=== PATIENT | female | born 1975 | race Caucasian/White ===

== ENCOUNTER → 2020-01-05 | Outpatient (CLI) | payer OTHER ==
--- NOTE | 2020-01-08 06:52 | XR ---
EXAMINATION TYPE: XR lumbosacral spine min 4V DATE OF EXAM: 01/05/2020 CLINICAL HISTORY: Spinal fusion surgery a few months earlier. TECHNIQUE: Frontal, lateral, and oblique images of the lumbar spine are obtained. COMPARISON: None FINDINGS: There are 5 lumbar type vertebral bodies identified. There are posterior interpedicular ro ds and screws transfixing L1-L3 levels bilaterally. There is poorly defined L2 vertebra with vertebro plasty changes, there is grade 2 retrolisthesis L2 on L3. Cement material extends to right and anteri or aspects of the mild to moderately compressed L2 vertebra. Moderate to severe disc space narrowing L1-L2 level with moderate anterior spurring. Slight grade 1 retrolisthesis L3 on L4. Mild disc space narrowing L5-S1 level. Slight dextroconvex scoliotic curvature positioning near the lumbosacral junct ion. Asymmetric narrowing and sclerosis right sacroiliac joint. Oblique images are within normal limi ts. Vertical density could reflect cement material into small draining vein. Cholecystectomy clips ar e noted. IMPRESSION: As above. Correlation with old outside x-rays would be beneficial.
== END | disposition home or self-care (01) ==
LOC: RAD 18:06
PROVIDERS: ATTEND Neurological Surgery
DX: Z09 Encounter for follow-up examination after completed treatment for conditions other than malignant neoplasm (principal); M48.061 Spinal stenosis, lumbar region without neurogenic claudication; M43.16 Spondylolisthesis, lumbar region; M41.87 Other forms of scoliosis, lumbosacral region; Z98.1 Arthrodesis status
CPT/HCPCS: 72110

== ENCOUNTER 2020-12-11 07:41 | Inpatient (IN) | payer OTHER ==
[2020-12-11] MEDS ORDERED: ACETAMINOPHEN TAB 500 MG TAB PO STA (07:57)
[2020-12-11] MEDS: SODIUM CHLORIDE 0.9% 500 ML 500 ML IV SCH ×3 (08:19→09:12)
[2020-12-11 08:23] LABS: Glucose,Whole Blood 343 mg/dL (75-99)
--- NOTE | 2020-12-11 08:27 | ED ---
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 [facility] obtained vitals on the patient this morning. They found that she was tachycardic and confused. EMS was called to the scene where they found the patient had 103 fever. She does have open wounds noted to her coccyx. It was recently cultured at the rehab facility. Patient presents and denies any complaints. She does have some difficulties with questions and states that she does feel "little bit foggy". She denies any headaches or visual changes. No chest pain or shortness of breath. No abdominal pain. Denies any bowel or bladder complaints. Patient does have notable hypoxia at 86%. She denies home oxygen use. Denies any new weakness in her body. No other alleviating, precipitating or modifying factors - Related Data Home Medications Medication Instructions Recorded Confirmed ALPRAZolam [Xanax] 0.25 mg PO DAILY PRN 12/11/20 12/11/20 Acetaminophen Tab [Tylenol] 650 mg PO QID PRN 12/11/20 12/11/20 Alpelisib [Piqray] 2 tab PO DAILY@1800 12/11/20 12/11/20 Anastrozole [Arimidex] 1 mg PO HS 12/11/20 12/11/20 Bisacodyl 10 mg PO DAILY PRN 12/11/20 12/11/20 Collagenase [Santyl] 1 applic TOPICAL DAILY 12/11/20 12/11/20 Enoxaparin [Lovenox] 40 mg SQ DAILY@0800 12/11/20 12/11/20 Gabapentin [Neurontin] 100 mg PO TID@0600,1400,2200 12/11/20 12/11/20 Glucerna Shake 120 ml PO TID@0800,1200,1700 12/11/20 12/11/20 HYDROmorphone [Dilaudid] 2 - 4 mg PO Q6H PRN 12/11/20 12/11/20 INSULIN ASPART (NovoLOG) [NovoLOG 20 unit SQ AC-TID 12/11/20 12/11/20 (formulary)] INSULIN ASPART (NovoLOG) [NovoLOG See Protocol SQ AC-TID 12/11/20 12/11/20 (formulary)] Insulin Glargine [Lantus] 50 unit SQ BID@0800,2100 12/11/20 12/11/20 Levothyroxine Sodium [Synthroid] 200 mcg PO DAILY@0600 12/11/20 12/11/20 Magnesium Hydroxide [Milk of 7,200 mg PO DAILY PRN 12/11/20 12/11/20 Magnesia Concentrate] Methylphenidate HCl [Ritalin] 10 mg PO BID@0800,1700 12/11/20 12/11/20 Morphine Sulfate ER [Ms Contin] 60 mg PO Q12HR 12/11/20 12/11/20 Na Phos,M-B/Na Phos,Di-Ba [Fleet 133 ml RECTAL DAILY PRN 12/11/20 12/11/20 Adult] Nystatin 100,000 Unit/ml Susp 500,000 units PO QID 12/11/20 12/11/20 [Mycostatin Oral Susp] OLANZapine [ZyPREXA] 5 mg PO HS 12/11/20 12/11/20 Oxybutynin Chloride [Ditropan] 5 mg PO BID@0800,1700 12/11/20 12/11/20 Pantoprazole Sodium [Protonix] 40 mg PO DAILY@0800 12/11/20 12/11/20 Polyethylene Glycol 3350 [Miralax] 17 gm PO BID 12/11/20 12/11/20 Potassium Chloride [Klor-Con 10] 20 meq PO BID@0800,1700 12/11/20 12/11/20 bisacodyL [Dulcolax] 10 mg RECTAL DAILY PRN 12/11/20 12/11/20 dexAMETHasone See Taper PO BID@0800,1700 12/11/20 12/11/20 metFORMIN HCL [Glucophage] 1,000 mg PO BID@0800,1700 12/11/20 12/11/20 ondansetron HCL [Zofran] 8 mg PO Q8H PRN 12/11/20 12/11/20 tiZANidine [Zanaflex] 2 mg PO TID PRN 12/11/20 12/11/20 Allergies Allergy/AdvReac Type Severity Reaction Status Date / Time acetaminophen [From [place]] Allergy Rash/Hives Verified 12/11/20 10:39 fish derived Allergy Rash/Hives Verified 12/11/20 10:39 hydrocodone [From [place]] Allergy Rash/Hives Verified 12/11/20 10:39 Penicillins Allergy Rash/Hives Verified 12/11/20 10:39 Review of Systems ROS Statement: Those systems with pertinent positive or pertinent negative responses have been documented in the HPI. ROS Other: All systems not noted in ROS Statement are negative. Past Medical History Past Medical History: Cancer, Diabetes Mellitus, Hyperlipidemia, Hypertension History of Any Multi-Drug Resistant Organisms: None Reported Past Surgical History: Unable to Obtain Past Psychological History: No Psychological Hx Reported Smoking Status: Never smoker Past Alcohol Use History: None Reported Past Drug Use History: None Reported General Exam Limitations: altered mental status General appearance: alert, in no apparent distress Head exam: Present: atraumatic, normocephalic, normal inspection Eye exam: Present: normal appearance, PERRL, EOMI. Absent: scleral icterus, conjunctival injection, periorbital swelling ENT exam: Present: normal exam, mucous membranes moist Neck exam: Present: normal inspection. Absent: tenderness, meningismus, lymphadenopathy Respiratory exam: Present: normal lung sounds bilaterally. Absent: respiratory distress, wheezes, rales, rhonchi, stridor Cardiovascular Exam: Present: normal rhythm, tachycardia, normal heart sounds. Absent: systolic murmur, diastolic murmur, rubs, gallop, clicks GI/Abdominal exam: Present: soft, normal bowel sounds. Absent: distended, tenderness, guarding, rebound, rigid Extremities exam: Present: normal inspection, full ROM, normal capillary refill. Absent: tenderness, pedal edema, joint swelling, calf tenderness Back exam: Present: other (Patient has a foul-smelling sacral wound measuring 5.0 x 2.0 cm - stage 3. Would located 6 cm from inferior end of incision) Neurological exam: Present: alert, oriented X3, CN II-XII intact Psychiatric exam: Present: normal affect, normal mood Skin exam: Present: warm, dry, intact, normal color. Absent: rash Course Vital Signs 12/11/20 12/11/20 12/11/20 07:41 08:00 08:30 Temperature 100.9 F H Pulse Rate 130 H 120 H 112 H Pulse Rate [ Pulse Oximetery ] Respiratory 16 Rate Blood Pressure 148/95 148/95 139/97 Blood Pressure [Left Arm] O2 Sat by Pulse 90 L 95 96 Oximetry 12/11/20 12/11/20 12/11/20 09:00 09:30 10:00 Temperature Pulse Rate 107 H 101 H 103 H Pulse Rate [ Pulse Oximetery ] Respiratory 16 16 Rate Blood Pressure 139/97 116/85 116/85 Blood Pressure [Left Arm] O2 Sat by Pulse 98 99 99 Oximetry 12/11/20 12/11/20 12/11/20 10:30 11:00 11:30 Temperature Pulse Rate 100 95 93 Pulse Rate [ Pulse Oximetery ] Respiratory 17 17 18 Rate Blood Pressure 122/91 122/91 109/78 Blood Pressure [Left Arm] O2 Sat by Pulse 97 98 96 Oximetry 12/11/20 12/11/20 12/11/20 12:00 12:30 13:00 Temperature Pulse Rate 92 89 93 Pulse Rate [ Pulse Oximetery ] Respiratory Rate Blood Pressure 109/78 112/79 112/79 Blood Pressure [Left Arm] O2 Sat by Pulse 98 98 98 Oximetry 12/11/20 12/11/20 12/11/20 13:30 14:00 14:30 Temperature Pulse Rate 83 86 90 Pulse Rate [ Pulse Oximetery ] Respiratory Rate Blood Pressure 117/83 117/83 115/80 Blood Pressure [Left Arm] O2 Sat by Pulse 98 99 99 Oximetry 12/11/20 12/11/20 12/11/20 14:43 15:00 15:30 Temperature 99.2 F Pulse Rate 86 Pulse Rate [ 100 Pulse Oximetery ] Respiratory 20 Rate Blood Pressure 115/80 114/76 Blood Pressure 111/74 [Left Arm] O2 Sat by Pulse 95 97 Oximetry 12/11/20 12/11/20 12/11/20 16:00 16:30 17:00 Temperature Pulse Rate 86 86 84 Pulse Rate [ Pulse Oximetery ] Respiratory Rate Blood Pressure 114/76 114/76 Blood Pressure [Left Arm] O2 Sat by Pulse 99 99 100 Oximetry 12/11/20 12/11/20 12/11/20 17:30 19:00 20:00 Temperature 98.0 F Pulse Rate 82 91 84 Pulse Rate [ Pulse Oximetery ] Respiratory 16 18 Rate Blood Pressure 114/76 114/76 113/75 Blood Pressure [Left Arm] O2 Sat by Pulse 99 100 100 Oximetry 12/11/20 21:07 Temperature Pulse Rate 82 Pulse Rate [ Pulse Oximetery ] Respiratory 18 Rate Blood Pressure 118/78 Blood Pressure [Left Arm] O2 Sat by Pulse 100 Oximetry - Reevaluation(s) Reevaluation #1: 12/11/20 10:46 Awaiting [facility] callback Reevaluation #2: Spoke with [facility] accepted patient as a transfer 12/11/20 11:00 Reevaluation #3: The Dr. Tran who states that he wants the patient admitted to the hospital. Informed him that Dr. Doty had refused admission. Called and spoke with Dr. Doty who agreed the patient stated her facility that she would be a palliative case. Informed patient of this. She is currently deciding if she wants to be admitted here, go to [facility] or even be transferred to [facility] 12/11/20 12:15 Reevaluation #4: Patient has changed her mind and would like to be admitted. Dr. Doty at bedside 12/11/20 12:47 Medical Decision Making - Medical Decision Making On arrival patient is placed into room 10. A thorough history and physical exam was performed. Patient is rolled and does have a foul-smelling sacral wound. Transfer paperwork demonstrates a culture result with gram negative bacilli and enterococcus. IV is established. Laboratory studies are conducted. Blood cultures were obtained. I did order a dose of cefepime. Patient was given her 30 cc/kg bolus of fluid. I reviewed the patient's laboratory studies. Sodium 129. Glucose is 351. Troponin 0.045. Covid not detected. Lactic acid is 1.7 and blood pressures are stable therefore no signs that meet severe sepsis. Chest x-ray demonstrates some diffuse osseous metastatic disease. Low lung volumes with patchy bilateral upper long and left greater than right basilar acute infiltrates and/or atelectasis. CT of the patient's brain demonstrates marked abnormal appearance involving the calvarium. Metastases in the differential. I did speak with the family and they're requesting admission to our facility. I called and spoke with Dr. Doty who is refusing admission. Reports of the patient should be transferred back to her facility where she had recent surgical intervention due to concern that patient may have osteomyelitis secondary to sacral wound. Spoke with the patient's surgeon at [facility] - Dr. Renner and also Dr. Russ who accepted transfer of the patient. We then called and spoke with EMS who stated that the patient would have an [id number] cost for transfer. This is discussed with the patient she does agree of the cost. I then spoke with Dr. Tran who states that the patient should be admitted to our facility with Dr. Hernandez consult as traveling back to [facility] would be an incredible burden on the family. I called Dr. Doty and discussed this with her who speaks with the patients family and all parties agree that the patient can remain at our facility. Patient does request to stay and therefore we called [facility] and transfer was canceled. Patient will receive antibiotics and pain control. Patient is awaiting a bed on the floor - Lab Data Result diagrams: 12/12/20 09:59 12/13/20 07:52 Lab Results 12/11/20 12/11/20 12/11/20 Range/Units 07:54 08:15 08:15 WBC 4.1 (3.8-10.6) k/uL RBC 3.07 L (3.80-5.40) m/uL Hgb 9.9 L (11.4-16.0) gm/dL Hct 30.5 L (34.0-46.0) % MCV 99.4 (80.0-100.0) fL MCH 32.4 (25.0-35.0) pg MCHC 32.6 (31.0-37.0) g/dL RDW 25.0 H (11.5-15.5) % Plt Count 228 (150-450) k/uL MPV 6.7 Neutrophils % (Manual) 77 % Band Neuts % (Manual) 4 % Lymphocytes % (Manual) 10 % Monocytes % (Manual) 6 % Metamyelocytes % 2 % Myelocytes % 2 % Neutrophils # (Manual) 3.30 (1.3-7.7) k/uL Lymphocytes # (Manual) 0.41 L (1.0-4.8) k/uL Monocytes # (Manual) 0.25 (0-1.0) k/uL Metamyelocytes # (Man) 0.08 H (0) k/uL Myelocytes # (Manual) 0.08 H (0) k/uL Nucleated RBCs 11 H (0-0) /100 WBC Manual Slide Review Performed Polychromasia Present Hypochromasia Slight Poikilocytosis (manual Present Anisocytosis Marked Macrocytosis Marked A PT 10.9 (9.0-12.0) sec INR 1.0 (<1.2) APTT 22.1 (22.0-30.0) sec Sodium (137-145) mmol/L Potassium (3.5-5.1) mmol/L Chloride (98-107) mmol/L Carbon Dioxide (22-30) mmol/L Anion Gap mmol/L BUN (7-17) mg/dL Creatinine (0.52-1.04) mg/dL Est GFR (CKD-EPI)AfAm (>60 ml/min/1.73 sqM) Est GFR (CKD-EPI)NonAf (>60 ml/min/1.73 sqM) Glucose (74-99) mg/dL POC Glucose (mg/dL) (75-99) mg/dL POC Glu Showroom Manager ID Plasma Lactic Acid Stephen (0.7-2.0) mmol/L Calcium (8.4-10.2) mg/dL Total Bilirubin (0.2-1.3) mg/dL AST (14-36) U/L ALT (4-34) U/L Alkaline Phosphatase (38-126) U/L Troponin I 0.045 H* (0.000-0.034) ng/mL Total Protein (6.3-8.2) g/dL Albumin (3.5-5.0) g/dL Cortisol ug/dL Coronavirus (PCR) (Not Detectd) 12/11/20 12/11/20 12/11/20 Range/Units 08:15 08:15 08:20 WBC (3.8-10.6) k/uL RBC (3.80-5.40) m/uL Hgb (11.4-16.0) gm/dL Hct (34.0-46.0) % MCV (80.0-100.0) fL MCH (25.0-35.0) pg MCHC (31.0-37.0) g/dL RDW (11.5-15.5) % Plt Count (150-450) k/uL MPV Neutrophils % (Manual) % Band Neuts % (Manual) % Lymphocytes % (Manual) % Monocytes % (Manual) % Metamyelocytes % % Myelocytes % % Neutrophils # (Manual) (1.3-7.7) k/uL Lymphocytes # (Manual) (1.0-4.8) k/uL Monocytes # (Manual) (0-1.0) k/uL Metamyelocytes # (Man) (0) k/uL Myelocytes # (Manual) (0) k/uL Nucleated RBCs (0-0) /100 WBC Manual Slide Review Polychromasia Hypochromasia Poikilocytosis (manual Anisocytosis Macrocytosis PT (9.0-12.0) sec INR (<1.2) APTT (22.0-30.0) sec Sodium 129 L (137-145) mmol/L Potassium 5.0 (3.5-5.1) mmol/L Chloride 92 L (98-107) mmol/L Carbon Dioxide 30 (22-30) mmol/L Anion Gap 7 mmol/L BUN 26 H (7-17) mg/dL Creatinine 0.46 L (0.52-1.04) mg/dL Est GFR (CKD-EPI)AfAm >90 (>60 ml/min/1.73 sqM) Est GFR (CKD-EPI)NonAf >90 (>60 ml/min/1.73 sqM) Glucose 351 H (74-99) mg/dL POC Glucose (mg/dL) 343 H (75-99) mg/dL POC Glu Showroom Manager [facility] Plasma Lactic Acid Stephen 1.7 (0.7-2.0) mmol/L Calcium 9.0 (8.4-10.2) mg/dL Total Bilirubin 0.6 (0.2-1.3) mg/dL AST 27 (14-36) U/L ALT 28 (4-34) U/L Alkaline Phosphatase 127 H (38-126) U/L Troponin I (0.000-0.034) ng/mL Total Protein 5.9 L (6.3-8.2) g/dL Albumin 3.5 (3.5-5.0) g/dL Cortisol 24 ug/dL Coronavirus (PCR) (Not Detectd) 12/11/20 Range/Units 08:24 WBC (3.8-10.6) k/uL RBC (3.80-5.40) m/uL Hgb (11.4-16.0) gm/dL Hct (34.0-46.0) % MCV (80.0-100.0) fL MCH (25.0-35.0) pg MCHC (31.0-37.0) g/dL RDW (11.5-15.5) % Plt Count (150-450) k/uL MPV Neutrophils % (Manual) % Band Neuts % (Manual) % Lymphocytes % (Manual) % Monocytes % (Manual) % Metamyelocytes % % Myelocytes % % Neutrophils # (Manual) (1.3-7.7) k/uL Lymphocytes # (Manual) (1.0-4.8) k/uL Monocytes # (Manual) (0-1.0) k/uL Metamyelocytes # (Man) (0) k/uL Myelocytes # (Manual) (0) k/uL Nucleated RBCs (0-0) /100 WBC Manual Slide Review Polychromasia Hypochromasia Poikilocytosis (manual Anisocytosis Macrocytosis PT (9.0-12.0) sec INR (<1.2) APTT (22.0-30.0) sec Sodium (137-145) mmol/L Potassium (3.5-5.1) mmol/L Chloride (98-107) mmol/L Carbon Dioxide (22-30) mmol/L Anion Gap mmol/L BUN (7-17) mg/dL Creatinine (0.52-1.04) mg/dL Est GFR (CKD-EPI)AfAm (>60 ml/min/1.73 sqM) Est GFR (CKD-EPI)NonAf (>60 ml/min/1.73 sqM) Glucose (74-99) mg/dL POC Glucose (mg/dL) (75-99) mg/dL POC Glu Showroom Manager ID Plasma Lactic Acid Stephen (0.7-2.0) mmol/L Calcium (8.4-10.2) mg/dL Total Bilirubin (0.2-1.3) mg/dL AST (14-36) U/L ALT (4-34) U/L Alkaline Phosphatase (38-126) U/L Troponin I (0.000-0.034) ng/mL Total Protein (6.3-8.2) g/dL Albumin (3.5-5.0) g/dL Cortisol ug/dL Coronavirus (PCR) Not Detected (Not Detectd) - EKG Data EKG Comments: EKG demonstrates a sinus tachycardia with a ventricular rate of 121. RI interval 128. QRS 84. QTC 434. No acute ST segment elevations or depressions concerning for ischemic changes Disposition Clinical Impression: Sacral wound, Sepsis, Pyrexia, Pressure ulcer of sacral region, stage 4, Metastatic breast cancer Disposition: ADMITTED IP TO THIS HOSP Condition: Serious Is patient prescribed a controlled substance at d/c from ED?: No Decision to Admit Reason: Admit from EC Decision Date: 12/11/20 Decision Time: 12:48
--- NOTE | 2020-12-11 08:56 | CT ---
EXAMINATION TYPE: CT brain wo con DATE OF EXAM: 12/11/2020 COMPARISON: None HISTORY: altered mental status, fever CT DLP: 1092.4 mGycm. Automated Exposure Control for Dose Reduction was Utilized. TECHNIQUE: CT scan of the head is performed without contrast. FINDINGS: Exam limited by motion artifact with severe limitation of the posterior fossa. There is an area of abnormal low attenuation the left frontal white matter. Could not exclude a space space-occup antoinette mass or area of ischemic change. Recommend MRI. Normal appearance involving the calvarium where there is marked demineralization areas involving bilateral calvarium. Findings suspicious for metasta ses. Assessment for hemorrhage is limited due to artifact. Low attenuation involving the cerebellar hemisp here and the right somewhat asymmetric but is an area of extreme artifact. MRI could assess for possi ble edema and underlying metastatic lesion. IMPRESSION: 1. Marked abnormal appearance involving the calvarium. Consider neoplastic process, metastasis in the differential diagnosis. Recommend MRI. Areas of low attenuation involving the left frontal white mat ter could represent either recent ischemia or vasogenic edema. MRI with contrast recommended. Results called to ER physician. Next line 2. Limited assessment of posterior fossa and for hemorrhage due to artifact.
[2020-12-11 08:59] LABS: ALT 28 U/L (4-34); AST 27 U/L (14-36); African American GFR (CKD) >90 (>60 ml/min/1.73 sqM); Albumin 3.5 g/dL (3.5-5.0); Alkaline Phosphatase 127 U/L (38-126); Anion Gap 7 mmol/L; Blood Urea Nitrogen 26 mg/dL (7-17); Carbon Dioxide 30 mmol/L (22-30); Chloride 92 mmol/L (98-107); Glucose 351 mg/dL (74-99); Non-African American GFR(CKD) >90 (>60 ml/min/1.73 sqM); Sodium 129 mmol/L (137-145); Total Bilirubin 0.6 mg/dL (0.2-1.3); Total Protein 5.9 g/dL (6.3-8.2)
--- NOTE | 2020-12-11 09:01 | XR ---
EXAMINATION TYPE: XR chest 2V DATE OF EXAM: 12/11/2020 COMPARISON: NONE HISTORY: Altered mental status and weakness. Fever. TECHNIQUE: Frontal and lateral views of the chest are obtained. FINDINGS: There is right internal jugular Mediport catheter terminating in SVC. Low lung volumes and chronic parenchymal changes are present. Focal left basilar opacity. Focal linear opacity right lung base favors trapped pleural fluid. Or patchy opacity inferior to this noted. Patchy upper lung opacit ies bilaterally. No pneumothorax seen bilaterally. No layering inferior fusion on lateral view. [place] us structures abnormal with multifocal lytic and sclerotic appearance. Postsurgical change to the tho racolumbar spine is partially imaged. Cholecystectomy clips. Cardiac silhouette size within normal li mits. IMPRESSION: Diffuse osseous metastatic disease. Low lung volumes with patchy bilateral upper lung an d left greater than right bibasilar acute infiltrates and/or atelectasis.
[2020-12-11 09:02] LABS: Partial Thromboplastin Time 22.1 sec (22.0-30.0); Prothrombin Time 10.9 sec (9.0-12.0)
[2020-12-11 09:09] LABS: Anisocytosis Marked; HCT 30.5 % (34.0-46.0); HGB 9.9 gm/dL (11.4-16.0); Hypochromasia Slight; MCH 32.4 pg (25.0-35.0); MCHC 32.6 g/dL (31.0-37.0); MCV 99.4 fL (80.0-100.0); Macrocytosis Marked; Mean Platelet Volume 6.7; Platelet Count 228 k/uL (150-450); RBC 3.07 m/uL (3.80-5.40)
[2020-12-11 09:35] LABS: Band Neutrophils % 4 %; Lymphocytes # (M) 0.41 k/uL (1.0-4.8); Metamyelocytes # (M) 0.08 k/uL (0); Metamyelocytes % 2 %; Monocytes # (M) 0.25 k/uL (0-1.0); Myelocytes # (M) 0.08 k/uL (0); Myelocytes % 2 %; Neutrophils % (M) 77 %; Nucleated Red Blood Cells 11 /100 WBC (0-0); Total Cells Counted 200; WBC 4.1 k/uL (3.8-10.6)
[2020-12-11] MEDS ORDERED: cefTRIAXone IN SWFI 1,000 MG/10 ML SYRINGE IVP STA (09:35)
[2020-12-11 09:37] LABS: Poikilocytosis (M) Present; Polychromasia Present
[2020-12-11] MEDS ORDERED: CEFEPIME 1 GM in SODIUM CHLORIDE 0.9% 50 ML IVPB STA (10:12)
[2020-12-11] MEDS ORDERED: HYDROmorphone 1 MG/ML 1 ML SYRINGE IVP STA (10:27)
[2020-12-11] MEDS: SODIUM CHLORIDE 0.9% 1,000 ML IV SCH ×2 (11:32→23:59)
[2020-12-11] MEDS ORDERED: IBUPROFEN 400 MG TAB PO PRN (12:48)
[2020-12-11] MEDS ORDERED: ACETAMINOPHEN TAB 325 MG TAB PO PRN (12:48)
[2020-12-11] MEDS ORDERED: NALOXONE 0.4 MG/ML 1 ML VIAL IV PRN (12:48)
[2020-12-11] MEDS ORDERED: bisacodyL 5 MG TABLET.DR PO PRN (13:56)
[2020-12-11] MEDS ORDERED: tiZANidine 4 MG TAB PO PRN (13:56)
[2020-12-11] MEDS ORDERED: bisacodyL 10 MG SUPP RECTAL PRN (13:56)
[2020-12-11] MEDS ORDERED: ALPRAZolam 0.25 MG TAB PO PRN (13:56)
[2020-12-11] MEDS: GABAPENTIN 100 MG CAP PO SCH ×2 (14:53→23:58)
[2020-12-11] MEDS: HYDROmorphone 2 MG TAB PO PRN (15:14)
[2020-12-11] MEDS: ONDANSETRON 4 MG TAB PO SCH (15:15)
--- NOTE | 2020-12-11 15:15 | P.GSCN ---
History of Present Illness Consult date: 12/11/20 Reason for Consult: Sacral decubitus ulcer History of present illness: The patient's a 45-year-old female who was brought to the ER from [facility] due to fever and confusion. She has a complicated history. She has a diagnosis of metastatic breast cancer. She also recently fell and had a ORIF of the right shoulder and femur. She also recently had some sort of spine surgery on the upper back and the incision has opened up and begun draining. she has had a small decubitus ulcer since her initial surgeries in October. This is been getting bigger. She has pain there she's never had surgery on the decubitus in the past Review of Systems All systems: negative Past Medical History Past Medical History: Cancer, Diabetes Mellitus, Hyperlipidemia, Hypertension History of Any Multi-Drug Resistant Organisms: None Reported Past Surgical History: Unable to Obtain Past Psychological History: No Psychological Hx Reported Smoking Status: Never smoker Past Alcohol Use History: None Reported Past Drug Use History: None Reported Medications and Allergies Home Medications Medication Instructions Recorded Confirmed Type ALPRAZolam [Xanax] 0.25 mg PO DAILY PRN 12/11/20 12/11/20 History Acetaminophen Tab [Tylenol] 650 mg PO QID PRN 12/11/20 12/11/20 History Alpelisib [Piqray] 2 tab PO DAILY 12/11/20 12/11/20 History Anastrozole [Arimidex] 1 mg PO DAILY 12/11/20 12/11/20 History Bisacodyl 10 mg PO DAILY PRN 12/11/20 12/11/20 History Collagenase [Santyl] 1 applic TOPICAL DAILY 12/11/20 12/11/20 History Dexamethasone [Decadron] 2 - 4 mg PO DIRECTED 12/11/20 12/11/20 History Enoxaparin [Lovenox] 40 mg SQ DAILY 12/11/20 12/11/20 History Gabapentin [Neurontin] 100 mg PO TID 12/11/20 12/11/20 History HYDROmorphone [Dilaudid] 2 - 4 mg PO Q6H PRN 12/11/20 12/11/20 History INSULIN ASPART (NovoLOG) [NovoLOG 20 unit SQ AC-TID 12/11/20 12/11/20 History (formulary)] INSULIN ASPART (NovoLOG) [NovoLOG See Protocol SQ AC-TID 12/11/20 12/11/20 History (formulary)] Insulin Glargine [Lantus] 50 unit SQ BID 12/11/20 12/11/20 History Levothyroxine Sodium [Synthroid] 200 mcg PO DAILY 12/11/20 12/11/20 History Magnesium Hydroxide [Milk of 7,200 mg PO DAILY PRN 12/11/20 12/11/20 History Magnesia Concentrate] Methylphenidate HCl [Ritalin] 10 mg PO BID 12/11/20 12/11/20 History Morphine Sulfate ER [Ms Contin] 60 mg PO Q12HR 12/11/20 12/11/20 History Na Phos,M-B/Na Phos,Di-Ba [Fleet 133 ml RECTAL DAILY PRN 12/11/20 12/11/20 History Adult] Nystatin 100,000 Unit/ml Susp 500,000 units PO QID 12/11/20 12/11/20 History [Mycostatin Oral Susp] OLANZapine [ZyPREXA] 5 mg PO HS 12/11/20 12/11/20 History Oxybutynin Chloride [Ditropan] 5 mg PO BID 12/11/20 12/11/20 History Pantoprazole Sodium [Protonix] 40 mg PO DAILY 12/11/20 12/11/20 History Polyethylene Glycol 3350 [Miralax] 17 gm PO BID 12/11/20 12/11/20 History Potassium Chloride [Klor-Con 10] 20 meq PO BID 12/11/20 12/11/20 History bisacodyL [Dulcolax] 10 mg RECTAL DAILY PRN 12/11/20 12/11/20 History metFORMIN HCL [Glucophage] 1,000 mg PO BID 12/11/20 12/11/20 History ondansetron HCL [Zofran] 8 mg PO Q8HR 12/11/20 12/11/20 History tiZANidine [Zanaflex] 2 mg PO Q8HR PRN 12/11/20 12/11/20 History Allergies Allergy/AdvReac Type Severity Reaction Status Date / Time acetaminophen [From [place]] Allergy Rash/Hives Verified 12/11/20 10:39 fish derived Allergy Rash/Hives Verified 12/11/20 10:39 hydrocodone [From [place]] Allergy Rash/Hives Verified 12/11/20 10:39 Penicillins Allergy Rash/Hives Verified 12/11/20 10:39 Surgical - Exam Osteopathic Statement: *. No significant issues noted on an osteopathic structural exam other than those noted in the History and Physical/Consult. Vital Signs Temp Pulse Resp BP Pulse Ox 100.9 F H 130 H 16 148/95 90 L 12/11/20 07:41 12/11/20 07:41 12/11/20 07:41 12/11/20 07:41 12/11/20 07:41 - General no distress - Integumentary 5 cm area of full thickness necrosis of the skin and subcutaneous tissue over the sacrum. In palpating the area does appear to involve the deeper subcutaneous tissues. Results - Labs 12/11/20 08:15 12/11/20 08:15 Abnormal Lab Results - Last 24 Hours (Table) 12/11/20 12/11/20 12/11/20 Range/Units 07:54 08:15 08:15 RBC 3.07 L (3.80-5.40) m/uL Hgb 9.9 L (11.4-16.0) gm/dL Hct 30.5 L (34.0-46.0) % RDW 25.0 H (11.5-15.5) % Lymphocytes # (Manual) 0.41 L (1.0-4.8) k/uL Metamyelocytes # (Man) 0.08 H (0) k/uL Myelocytes # (Manual) 0.08 H (0) k/uL Nucleated RBCs 11 H (0-0) /100 WBC Macrocytosis Marked A Sodium 129 L (137-145) mmol/L Chloride 92 L (98-107) mmol/L BUN 26 H (7-17) mg/dL Creatinine 0.46 L (0.52-1.04) mg/dL Glucose 351 H (74-99) mg/dL POC Glucose (mg/dL) (75-99) mg/dL Alkaline Phosphatase 127 H (38-126) U/L Troponin I 0.045 H* (0.000-0.034) ng/mL Total Protein 5.9 L (6.3-8.2) g/dL 12/11/20 Range/Units 08:20 RBC (3.80-5.40) m/uL Hgb (11.4-16.0) gm/dL Hct (34.0-46.0) % RDW (11.5-15.5) % Lymphocytes # (Manual) (1.0-4.8) k/uL Metamyelocytes # (Man) (0) k/uL Myelocytes # (Manual) (0) k/uL Nucleated RBCs (0-0) /100 WBC Macrocytosis Sodium (137-145) mmol/L Chloride (98-107) mmol/L BUN (7-17) mg/dL Creatinine (0.52-1.04) mg/dL Glucose (74-99) mg/dL POC Glucose (mg/dL) 343 H (75-99) mg/dL Alkaline Phosphatase (38-126) U/L Troponin I (0.000-0.034) ng/mL Total Protein (6.3-8.2) g/dL Diabetes panel 12/11/20 Range/Units 08:15 Sodium 129 L (137-145) mmol/L Potassium 5.0 (3.5-5.1) mmol/L Chloride 92 L (98-107) mmol/L Carbon Dioxide 30 (22-30) mmol/L BUN 26 H (7-17) mg/dL Creatinine 0.46 L (0.52-1.04) mg/dL Glucose 351 H (74-99) mg/dL Calcium 9.0 (8.4-10.2) mg/dL AST 27 (14-36) U/L ALT 28 (4-34) U/L Alkaline Phosphatase 127 H (38-126) U/L Total Protein 5.9 L (6.3-8.2) g/dL Albumin 3.5 (3.5-5.0) g/dL Calcium panel 12/11/20 Range/Units 08:15 Calcium 9.0 (8.4-10.2) mg/dL Albumin 3.5 (3.5-5.0) g/dL Pituitary panel 12/11/20 Range/Units 08:15 Sodium 129 L (137-145) mmol/L Potassium 5.0 (3.5-5.1) mmol/L Chloride 92 L (98-107) mmol/L Carbon Dioxide 30 (22-30) mmol/L BUN 26 H (7-17) mg/dL Creatinine 0.46 L (0.52-1.04) mg/dL Glucose 351 H (74-99) mg/dL Calcium 9.0 (8.4-10.2) mg/dL Adrenal panel 12/11/20 Range/Units 08:15 Sodium 129 L (137-145) mmol/L Potassium 5.0 (3.5-5.1) mmol/L Chloride 92 L (98-107) mmol/L Carbon Dioxide 30 (22-30) mmol/L BUN 26 H (7-17) mg/dL Creatinine 0.46 L (0.52-1.04) mg/dL Glucose 351 H (74-99) mg/dL Calcium 9.0 (8.4-10.2) mg/dL Total Bilirubin 0.6 (0.2-1.3) mg/dL AST 27 (14-36) U/L ALT 28 (4-34) U/L Alkaline Phosphatase 127 H (38-126) U/L Total Protein 5.9 L (6.3-8.2) g/dL Albumin 3.5 (3.5-5.0) g/dL Assessment and Plan Assessment: Sacral decubitus ulcer Metastatic breast cancer Drainage from incision in the mid thorax from previous spine surgery Plan: I spoke with the patient and her father. I recommend excisional debridement. We will try to get this added on for tomorrow afternoon. Dr. Hernandez is consulted to evaluate the thoracic drainage. If that needs anything from a spine surgery perspective, this could potentially be done at the same time. The procedure, risks complications and usual postoperative course was discussed with her and her father. Unfortunately due to the chemo she's been receiving and may receive in the future, wound healing is typically very prolonged. We'll have her see wound care after debridement
[2020-12-11] MEDS ORDERED: VANCOMYCIN IV PER PHARMACY 1 EACH MISC MISCELLANE PRN (15:36)
[2020-12-11] MEDS ORDERED: VANCOMYCIN 1,250 MG in SODIUM CHLORIDE 0.9% 250 ML IVPB STA (15:36)
--- NOTE | 2020-12-11 15:39 | P.HPIM ---
History of Present Illness H&P Date: 12/11/20 Chief Complaint: Disorientation, fever, large decubitus ulcer This is a 45-year-old pleasant lady, resides at [facility] under the care of Dr. Tran, known history of breast cancer with metastatic, diagnosed in 2014, upon diagnosis sure that metastatic lesions to the bone. She did not require mastectomy at that time, however she is on chemotherapy. Oncology would be at [facility] She had decubitus ulcer diagnosed 3 weeks ago, after decompression surgery involving lumbar spine, done at [facility] in [place], 3 weeks ago. She went to [facility], for which she is therefore rehabilitation. Patient requires a Marko lift, cannot ambulate and cannot move the leg spontaneously. She was noted to have fever this morning, and when she woke up she was disoriented, she was subsequently transferred to [facility]. She has a decubitus ulcer with foul-smelling large ulceration, this is being treated with 3+, no oral antibiotic, it's worse for the past 2 weeks, now with us foul-smelling odor, measuring 5 cm x 2 cm stage III. In the emergency room she was given information of the culture that was done December 08, growing pseudomonas aeruginosa, and Enterococcus faecalis, she was given cepefijme, pseudomonas is pansensitive, enterococcus is resistant to erythromycin, we'll going to start on levofloxacin IV and IV flagyn empiric, no drug ALLERGIES noted with this antibiotic. Patient has penicillin ALLERGY, with difficulty breathing and throat swelling consult with Dr. Harris, Dr. Menjivar for debridement of the sacral wound, and Dr. Hernandez for possible discitis, osteomyelitis. Patient has fever, delirium, with encephalopathy like picture, however this is transient, we've discussed this with emergency room physician, before her acceptance here, that I would prefer her to be sent to a tertiary facility that has done her spine decompression, as there is drainage from the wound in the surgical spine area however the family declined this option, as it is too far in [place]. Also at her primary care physician [facility], Dr. Tran requested that the patient stay locally, as this is uncomfortable for her, patient did not want any palliative treatments yet, however she is DO NOT RESUSCITATE, no CPR no ventilation She is taking morphine 60 mg twice a day, along with Dilaudid 2 mg every 4 hours, at the alf prior to admission. She is on Lantus for diabetes NovoLog premix,, gabapentin, Zyprexa, she is on piqray and Arimidex for metastatic breast cancer dexamethasone 2-4 mg as directed Review of Systems Constitutional: Reports as per HPI, Reports chills, Reports fatigue, Reports fever, Reports lethargy Ears, nose, mouth and throat: Reports as per HPI, Denies hoarseness, Denies nasal discharge, Denies neck lump, Denies odynophagia, Denies vertigo Cardiovascular: Reports as per HPI, Reports decreased exercise tolerance, Reports dyspnea on exertion, Denies shortness of breath Respiratory: Reports as per HPI, Denies cough with sputum, Denies pain on inspiration, Denies respiratory infections, Denies sleep apnea Gastrointestinal: Reports as per HPI Genitourinary: Reports as per HPI Menstruation: Reports as per HPI Musculoskeletal: Reports as per HPI, Reports myalgias, Denies gait dysfunction, Denies limitation of motion Integumentary: Reports as per HPI, Reports color changes, Reports wounds (Pressure ulcer acute coccyx sacrum) Neurological: Reports as per HPI, Reports balance difficulties, Reports gait dysfunction, Reports lack of coordination Psychiatric: Reports as per HPI, Reports disorientation, Reports insomnia Endocrine: Reports as per HPI, Reports weight change, Denies nocturia, Denies palpitations Hematologic/Lymphatic: Reports as per HPI, Reports easy bleeding Allergic/Immunologic: Reports persistent infections Past Medical History Past Medical History: Cancer, Diabetes Mellitus, Hyperlipidemia, Hypertension History of Any Multi-Drug Resistant Organisms: None Reported Past Surgical History: Unable to Obtain Past Psychological History: No Psychological Hx Reported Smoking Status: Never smoker Past Alcohol Use History: None Reported Past Drug Use History: None Reported Medications and Allergies Home Medications Medication Instructions Recorded Confirmed Type ALPRAZolam [Xanax] 0.25 mg PO DAILY PRN 12/11/20 12/11/20 History Acetaminophen Tab [Tylenol] 650 mg PO QID PRN 12/11/20 12/11/20 History Alpelisib [Piqray] 2 tab PO DAILY@1800 12/11/20 12/11/20 History Anastrozole [Arimidex] 1 mg PO HS 12/11/20 12/11/20 History Bisacodyl 10 mg PO DAILY PRN 12/11/20 12/11/20 History Collagenase [Santyl] 1 applic TOPICAL DAILY 12/11/20 12/11/20 History Enoxaparin [Lovenox] 40 mg SQ DAILY@0800 12/11/20 12/11/20 History Gabapentin [Neurontin] 100 mg PO TID@0600,1400,2200 12/11/20 12/11/20 History Glucerna Shake 120 ml PO TID@0800,1200,1700 12/11/20 12/11/20 History HYDROmorphone [Dilaudid] 2 - 4 mg PO Q6H PRN 12/11/20 12/11/20 History INSULIN ASPART (NovoLOG) [NovoLOG 20 unit SQ AC-TID 12/11/20 12/11/20 History (formulary)] INSULIN ASPART (NovoLOG) [NovoLOG See Protocol SQ AC-TID 12/11/20 12/11/20 History (formulary)] Insulin Glargine [Lantus] 50 unit SQ BID@0800,2100 12/11/20 12/11/20 History Levothyroxine Sodium [Synthroid] 200 mcg PO DAILY@0600 12/11/20 12/11/20 History Magnesium Hydroxide [Milk of 7,200 mg PO DAILY PRN 12/11/20 12/11/20 History Magnesia Concentrate] Methylphenidate HCl [Ritalin] 10 mg PO BID@0800,1700 12/11/20 12/11/20 History Morphine Sulfate ER [Ms Contin] 60 mg PO Q12HR 12/11/20 12/11/20 History Na Phos,M-B/Na Phos,Di-Ba [Fleet 133 ml RECTAL DAILY PRN 12/11/20 12/11/20 History Adult] Nystatin 100,000 Unit/ml Susp 500,000 units PO QID 12/11/20 12/11/20 History [Mycostatin Oral Susp] OLANZapine [ZyPREXA] 5 mg PO HS 12/11/20 12/11/20 History Oxybutynin Chloride [Ditropan] 5 mg PO BID@0800,1700 12/11/20 12/11/20 History Pantoprazole Sodium [Protonix] 40 mg PO DAILY@0800 12/11/20 12/11/20 History Polyethylene Glycol 3350 [Miralax] 17 gm PO BID 12/11/20 12/11/20 History Potassium Chloride [Klor-Con 10] 20 meq PO BID@0800,1700 12/11/20 12/11/20 History bisacodyL [Dulcolax] 10 mg RECTAL DAILY PRN 12/11/20 12/11/20 History dexAMETHasone [Dexamethasone] See Taper PO BID@0800,1700 12/11/20 12/11/20 History metFORMIN HCL [Glucophage] 1,000 mg PO BID@0800,1700 12/11/20 12/11/20 History ondansetron HCL [Zofran] 8 mg PO Q8H PRN 12/11/20 12/11/20 History tiZANidine [Zanaflex] 2 mg PO TID PRN 12/11/20 12/11/20 History Allergies Allergy/AdvReac Type Severity Reaction Status Date / Time acetaminophen [From [place]] Allergy Rash/Hives Verified 12/11/20 10:39 fish derived Allergy Rash/Hives Verified 12/11/20 10:39 hydrocodone [From [place]] Allergy Rash/Hives Verified 12/11/20 10:39 Penicillins Allergy Rash/Hives Verified 12/11/20 10:39 Physical Exam Vitals: Vital Signs Temp Pulse Resp BP Pulse Ox 12/11/20 11:30 93 18 109/78 96 12/11/20 11:00 95 17 122/91 98 12/11/20 10:30 100 17 122/91 97 12/11/20 10:00 103 H 16 116/85 99 12/11/20 09:30 101 H 16 116/85 99 12/11/20 09:00 107 H 139/97 98 12/11/20 08:30 112 H 139/97 96 12/11/20 08:00 120 H 148/95 95 12/11/20 07:41 100.9 F H 130 H 16 148/95 90 L Intake and Output 12/11/20 12/11/20 12/11/20 06:59 14:59 22:59 Other: Weight 63.503 kg - Constitutional General appearance: cooperative, no acute distress - EENT Eyes: anicteric sclerae, PERRLA, dentition normal ENT: NA/AT, normal oropharynx - Neck Neck: normal ROM - Respiratory Respiratory: bilateral: CTA, negative: diminished, dullness - Cardiovascular Rhythm: regular Heart sounds: normal: S1, S2 Abnormal Heart Sounds: no systolic murmur, no diastolic murmur, no rub, no S3 Gallop, no S4 Gallop, no click, no other - Gastrointestinal General gastrointestinal: normal bowel sounds - Integumentary Integumentary: decreased turgor, normal - Musculoskeletal Patient unable to move lower extremities, weak upper extremity bilateral no significant motor deficits in upper extremities - Psychiatric Psychiatric: A&O x's 3, appropriate affect, intact judgment & insight Results CBC & Chem 7: 12/12/20 09:59 12/12/20 09:59 Labs: Abnormal Lab Results - Last 24 Hours (Table) 12/11/20 12/11/20 12/11/20 Range/Units 07:54 08:15 08:15 RBC 3.07 L (3.80-5.40) m/uL Hgb 9.9 L (11.4-16.0) gm/dL Hct 30.5 L (34.0-46.0) % RDW 25.0 H (11.5-15.5) % Lymphocytes # (Manual) 0.41 L (1.0-4.8) k/uL Metamyelocytes # (Man) 0.08 H (0) k/uL Myelocytes # (Manual) 0.08 H (0) k/uL Nucleated RBCs 11 H (0-0) /100 WBC Macrocytosis Marked A Sodium 129 L (137-145) mmol/L Chloride 92 L (98-107) mmol/L BUN 26 H (7-17) mg/dL Creatinine 0.46 L (0.52-1.04) mg/dL Glucose 351 H (74-99) mg/dL POC Glucose (mg/dL) (75-99) mg/dL Alkaline Phosphatase 127 H (38-126) U/L Troponin I 0.045 H* (0.000-0.034) ng/mL Total Protein 5.9 L (6.3-8.2) g/dL 12/11/20 Range/Units 08:20 RBC (3.80-5.40) m/uL Hgb (11.4-16.0) gm/dL Hct (34.0-46.0) % RDW (11.5-15.5) % Lymphocytes # (Manual) (1.0-4.8) k/uL Metamyelocytes # (Man) (0) k/uL Myelocytes # (Manual) (0) k/uL Nucleated RBCs (0-0) /100 WBC Macrocytosis Sodium (137-145) mmol/L Chloride (98-107) mmol/L BUN (7-17) mg/dL Creatinine (0.52-1.04) mg/dL Glucose (74-99) mg/dL POC Glucose (mg/dL) 343 H (75-99) mg/dL Alkaline Phosphatase (38-126) U/L Troponin I (0.000-0.034) ng/mL Total Protein (6.3-8.2) g/dL Laboratory Results WBC 4.1 k/uL (3.8-10.6) 12/11/20 08:15 RBC 3.07 m/uL (3.80-5.40) L 12/11/20 08:15 Hgb 9.9 gm/dL (11.4-16.0) L 12/11/20 08:15 Hct 30.5 % (34.0-46.0) L 12/11/20 08:15 MCV 99.4 fL (80.0-100.0) 12/11/20 08:15 MCH 32.4 pg (25.0-35.0) 12/11/20 08:15 MCHC 32.6 g/dL (31.0-37.0) 12/11/20 08:15 RDW 25.0 % (11.5-15.5) H 12/11/20 08:15 Plt Count 228 k/uL (150-450) 12/11/20 08:15 MPV 6.7 12/11/20 08:15 Neutrophils % (Manual) 77 % 12/11/20 08:15 Band Neuts % (Manual) 4 % 12/11/20 08:15 Lymphocytes % (Manual) 10 % 12/11/20 08:15 Monocytes % (Manual) 6 % 12/11/20 08:15 Metamyelocytes % 2 % 12/11/20 08:15 Myelocytes % 2 % 12/11/20 08:15 Neutrophils # (Manual) 3.30 k/uL (1.3-7.7) 12/11/20 08:15 Lymphocytes # (Manual) 0.41 k/uL (1.0-4.8) L 12/11/20 08:15 Monocytes # (Manual) 0.25 k/uL (0-1.0) 12/11/20 08:15 Metamyelocytes # (Man) 0.08 k/uL (0) H 12/11/20 08:15 Myelocytes # (Manual) 0.08 k/uL (0) H 12/11/20 08:15 Nucleated RBCs 11 /100 WBC (0-0) H 12/11/20 08:15 Manual Slide Review Performed 12/11/20 08:15 Polychromasia Present 12/11/20 08:15 Hypochromasia Slight 12/11/20 08:15 Poikilocytosis (manual Present 12/11/20 08:15 Anisocytosis Marked 12/11/20 08:15 Macrocytosis Marked A 12/11/20 08:15 PT 10.9 sec (9.0-12.0) 12/11/20 08:15 INR 1.0 (<1.2) 12/11/20 08:15 APTT 22.1 sec (22.0-30.0) 12/11/20 08:15 Sodium 129 mmol/L (137-145) L 12/11/20 08:15 Potassium 5.0 mmol/L (3.5-5.1) 12/11/20 08:15 Chloride 92 mmol/L (98-107) L 12/11/20 08:15 Carbon Dioxide 30 mmol/L (22-30) 12/11/20 08:15 Anion Gap 7 mmol/L 12/11/20 08:15 BUN 26 mg/dL (7-17) H 12/11/20 08:15 Creatinine 0.46 mg/dL (0.52-1.04) L 12/11/20 08:15 Est GFR (CKD-EPI)AfAm >90 (>60 ml/min/1.73 sqM) 12/11/20 08:15 Est GFR (CKD-EPI)NonAf >90 (>60 ml/min/1.73 sqM) 12/11/20 08:15 Glucose 351 mg/dL (74-99) H 12/11/20 08:15 POC Glucose (mg/dL) 343 mg/dL (75-99) H 12/11/20 08:20 POC Glu Software Lead Antonio Eid 12/11/20 08:20 Plasma Lactic Acid Stephen 1.7 mmol/L (0.7-2.0) 12/11/20 08:15 Calcium 9.0 mg/dL (8.4-10.2) 12/11/20 08:15 Total Bilirubin 0.6 mg/dL (0.2-1.3) 12/11/20 08:15 AST 27 U/L (14-36) 12/11/20 08:15 ALT 28 U/L (4-34) 12/11/20 08:15 Alkaline Phosphatase 127 U/L (38-126) H 12/11/20 08:15 Troponin I 0.045 ng/mL (0.000-0.034) H* 12/11/20 07:54 Total Protein 5.9 g/dL (6.3-8.2) L 12/11/20 08:15 Albumin 3.5 g/dL (3.5-5.0) 12/11/20 08:15 Cortisol 24 ug/dL 12/11/20 08:15 Coronavirus (PCR) Not Detected (Not Detectd) 12/11/20 08:24 Thrombosis Risk Factor Assmnt - DVT/VTE Prophylaxis DVT/VTE Prophylaxis: Pharmacologic Prophylaxis ordered - Choose All That Apply Each Factor Represents 1 point: Age 41-60 years, Obesity (BMI >25) Each Risk Factor Represents 2 Points: Patient confined to bed, Malignancy Other congenital or acquired thrombophilia - If yes, enter type in comment: No Thrombosis Risk Factor Assessment Total Risk Factor Score: 6 Thrombosis Risk Factor Assessment Level: High Risk Assessment and Plan Plan: 1. Encephalopathy, secondary to sepsis, primary source could be the pseudomonas and enterococcus as noted from sacral decub foul-smelling lesion, however there is also an noticeable drainage from the spinal wound for which this going to be looking to by Dr. Hernandez, and Dr. Otto Harris which is sensitive to the micr obes isolated, and IV Flagyl to be started, patient has penicillin ALLERGY, cefepime given 1 dose in the ER, discussed with Dr. Harris, start on vancomycin and aztreonam 2. Breast cancer with metastases to the brain, and spinal column, patient is on piqray and dexamethasone, and Arimidex consult with Dr. Shepard underlying brain edema suspected well on dexamethasone, 3. Spinal decompression less than 3 weeks ago, secondary to pathological fracture suspected, no notes for review, consult with Dr. Hernandez, there is support for drainage in the surgical wound from this area, we'll going to obtain wound cultures also from the surgical wound unable to 4. Chronic pain, secondary to malignancy, skeletal metastases noted, on morphine 60 mg twice a day, and oral Dilaudid, 2 mg every 4 hours, morphine ER would be continued, and IV Dilaudid on a when necessary basis. 4 mg every 6 5. Diabetes mellitus type 2, on metformin, check A1c patient is on NovoLog 20 units 3 times a day, Levemir 50 units twice a day check 6. Hypothyroid on levothyroid 200 mcg daily 7. Chronic fatigue, on dexamethasone, for brain metastases possibly swelling, also on methylphenidate, 8. DVT prophylaxis with Lovenox 9. GI prophylaxis with IV Protonix CODE STATUS, DO NOT RESUSCITATE, patient does not want palliative treatment
[2020-12-11] MEDS ORDERED: AZTREONAM 2 GM in SODIUM CHLORIDE 0.9% 100 ML IVPB SCH (21:00)
[2020-12-11] MEDS: OXYBUTYNIN CHLORIDE 5 MG TAB PO SCH (21:49)
[2020-12-11] MEDS: OLANZapine 5 MG TAB PO SCH (21:49)
[2020-12-11] MEDS: INSULIN DETEMIR (LEVEMIR) 100 UNIT/ML SYR SQ SCH (21:49)
[2020-12-11 21:55] LABS: Glucose,Whole Blood 320 mg/dL (75-99)
[2020-12-11] MEDS: MORPHINE SULFATE ER 60 MG TABLET PO SCH (22:14)
--- NOTE | 2020-12-11 23:16 | P.CONS ---
History of Present Illness - Reason for Consult Consult date: 12/11/20 surgical site infection Requesting physician: Shruthi Doty - Chief Complaint draiange from the upper back x few days - History of Present Illness History of present illness : Patient is a 45-year-old female with a past medical history significant for metastatic stage IV breast cancer in this patient who did have mets to the thoracic spine with recent surgery done at the outside facility on July 06, 2020 for her thoracic spine mets apparently the patient did have a fusion of the spine patient also developed sacral pressure ulcer while at that facility subsequently the patient has been transferred to [facility], patient recently was noticed to have worsening of her sacral pressure ulcer and noticed to having some greenish drainage from her thor acic spine incision which has been cultured and the cultures came back positive with Pseudomonas Enterococcus faecalis for the patient has been sent to [facility] ER for further evaluation. On today's evaluation that is 12/11/2020 the patient denies having any fever or any chills patient denies pain to the upper back wound area patient denies any any chest pain shortness of breath or cough no nausea no vomiting no abdominal pain no diarrhea patient did have low-grade fever 100.9 on presentation to the hospital did have a normal white count did have a chest x-ray diffuse osseous metastatic disease patient has been started on Azactam and vancomycin because of her penicillin allergy infectious disease was consulted for further management Review of system: Positive point has been mentioned in HPI rest of the systems are negative Past medical history : Reviewed, documented below Past surgical history : Reviewed, documented below Social history: Reviewed, documented below Medications: Reviewed, as documented below GENERAL DESCRIPTION: Middle-aged female lying in bed, no distress. No tachypnea or accessory muscle of respiration use. HEENT: Shows Pallor , no scleral icterus. Oral mucous membrane is dry. NECK: Trachea central, no thyromegaly. LUNGS: Unlabored breathing. Clear to auscultation anteriorly. No wheeze or crackle. HEART: S1, S2, regular rate and rhythm. ABDOMEN: Soft, no tenderness , guarding or rigidity EXTREMITIES: No edema of feet. SKIN: No rash, no masses palpable. BACK: Thoracic spine incision Steri-Strips are still there did have minimal drainage no significant redness, patient did have a stage III sacral pressure ulcer with some foul-smelling drainage NEUROLOGICAL: The patient is awake, alert, oriented x3, mood and affect normal. LABS AND RADIOLOGY: Reviewed results see below Assessment : 1-patient with recent surgery to the thoracic spine for a pathological fracture apparently patient have a fusion procedure though detailed report is pending now with evidence of greenish drainage concern for underlying surgical site infection culture positive for Pseudomonas and Enterococcus faecalis 2-stage III sacral pressure ulcer 3-penicillin allergy that would limit the number of antibiotics safe to use Plan: 1-vancomycin pharmacy to dose her with a target trough of 15 while watching her kidney function and Vanco trough closely. 2-Azactam 2 g every 8 hours 3-await spine surgery evaluation possible CT versus exploration and drainage We will follow on clinical condition and cultures to further adjust medication if needed Thank you for this consultation we will follow the patient along with you Past Medical History Past Medical History: Cancer, Diabetes Mellitus, Hyperlipidemia, Hypertension History of Any Multi-Drug Resistant Organisms: None Reported Past Surgical History: Unable to Obtain Past Psychological History: No Psychological Hx Reported Smoking Status: Never smoker Past Alcohol Use History: None Reported Past Drug Use History: None Reported Medications and Allergies Home Medications Medication Instructions Recorded Confirmed Type ALPRAZolam [Xanax] 0.25 mg PO DAILY PRN 12/11/20 12/11/20 History Acetaminophen Tab [Tylenol] 650 mg PO QID PRN 12/11/20 12/11/20 History Alpelisib [Piqray] 2 tab PO DAILY@1800 12/11/20 12/11/20 History Anastrozole [Arimidex] 1 mg PO HS 12/11/20 12/11/20 History Bisacodyl 10 mg PO DAILY PRN 12/11/20 12/11/20 History Collagenase [Santyl] 1 applic TOPICAL DAILY 12/11/20 12/11/20 History Enoxaparin [Lovenox] 40 mg SQ DAILY@0800 12/11/20 12/11/20 History Gabapentin [Neurontin] 100 mg PO TID@0600,1400,2200 12/11/20 12/11/20 History Glucerna Shake 120 ml PO TID@0800,1200,1700 12/11/20 12/11/20 History HYDROmorphone [Dilaudid] 2 - 4 mg PO Q6H PRN 12/11/20 12/11/20 History INSULIN ASPART (NovoLOG) [NovoLOG 20 unit SQ AC-TID 12/11/20 12/11/20 History (formulary)] INSULIN ASPART (NovoLOG) [NovoLOG See Protocol SQ AC-TID 12/11/20 12/11/20 History (formulary)] Insulin Glargine [Lantus] 50 unit SQ BID@0800,2100 12/11/20 12/11/20 History Levothyroxine Sodium [Synthroid] 200 mcg PO DAILY@0600 12/11/20 12/11/20 History Magnesium Hydroxide [Milk of 7,200 mg PO DAILY PRN 12/11/20 12/11/20 History Magnesia Concentrate] Methylphenidate HCl [Ritalin] 10 mg PO BID@0800,1700 12/11/20 12/11/20 History Morphine Sulfate ER [Ms Contin] 60 mg PO Q12HR 12/11/20 12/11/20 History Na Phos,M-B/Na Phos,Di-Ba [Fleet 133 ml RECTAL DAILY PRN 12/11/20 12/11/20 History Adult] Nystatin 100,000 Unit/ml Susp 500,000 units PO QID 12/11/20 12/11/20 History [Mycostatin Oral Susp] OLANZapine [ZyPREXA] 5 mg PO HS 12/11/20 12/11/20 History Oxybutynin Chloride [Ditropan] 5 mg PO BID@0800,1700 12/11/20 12/11/20 History Pantoprazole Sodium [Protonix] 40 mg PO DAILY@0800 12/11/20 12/11/20 History Polyethylene Glycol 3350 [Miralax] 17 gm PO BID 12/11/20 12/11/20 History Potassium Chloride [Klor-Con 10] 20 meq PO BID@0800,1700 12/11/20 12/11/20 History bisacodyL [Dulcolax] 10 mg RECTAL DAILY PRN 12/11/20 12/11/20 History dexAMETHasone [Dexamethasone] See Taper PO BID@0800,1700 12/11/20 12/11/20 History metFORMIN HCL [Glucophage] 1,000 mg PO BID@0800,1700 12/11/20 12/11/20 History ondansetron HCL [Zofran] 8 mg PO Q8H PRN 12/11/20 12/11/20 History tiZANidine [Zanaflex] 2 mg PO TID PRN 12/11/20 12/11/20 History Allergies Allergy/AdvReac Type Severity Reaction Status Date / Time acetaminophen [From [place]] Allergy Rash/Hives Verified 12/11/20 10:39 fish derived Allergy Rash/Hives Verified 12/11/20 10:39 hydrocodone [From [place]] Allergy Rash/Hives Verified 12/11/20 10:39 Penicillins Allergy Rash/Hives Verified 12/11/20 10:39 Physical Exam Vitals: Vital Signs Temp Pulse Resp BP Pulse Ox 12/11/20 11:30 93 18 109/78 96 12/11/20 11:00 95 17 122/91 98 12/11/20 10:30 100 17 122/91 97 12/11/20 10:00 103 H 16 116/85 99 12/11/20 09:30 101 H 16 116/85 99 12/11/20 09:00 107 H 139/97 98 12/11/20 08:30 112 H 139/97 96 12/11/20 08:00 120 H 148/95 95 12/11/20 07:41 100.9 F H 130 H 16 148/95 90 L Intake and Output 12/11/20 12/11/20 12/11/20 06:59 14:59 22:59 Other: Weight 63.503 kg Results CBC & Chem 7: 12/11/20 08:15 12/11/20 08:15 Labs: Abnormal Lab Results - Last 24 Hours (Table) 12/11/20 12/11/20 12/11/20 Range/Units 07:54 08:15 08:15 RBC 3.07 L (3.80-5.40) m/uL Hgb 9.9 L (11.4-16.0) gm/dL Hct 30.5 L (34.0-46.0) % RDW 25.0 H (11.5-15.5) % Lymphocytes # (Manual) 0.41 L (1.0-4.8) k/uL Metamyelocytes # (Man) 0.08 H (0) k/uL Myelocytes # (Manual) 0.08 H (0) k/uL Nucleated RBCs 11 H (0-0) /100 WBC Macrocytosis Marked A Sodium 129 L (137-145) mmol/L Chloride 92 L (98-107) mmol/L BUN 26 H (7-17) mg/dL Creatinine 0.46 L (0.52-1.04) mg/dL Glucose 351 H (74-99) mg/dL POC Glucose (mg/dL) (75-99) mg/dL Alkaline Phosphatase 127 H (38-126) U/L Troponin I 0.045 H* (0.000-0.034) ng/mL Total Protein 5.9 L (6.3-8.2) g/dL 12/11/20 Range/Units 08:20 RBC (3.80-5.40) m/uL Hgb (11.4-16.0) gm/dL Hct (34.0-46.0) % RDW (11.5-15.5) % Lymphocytes # (Manual) (1.0-4.8) k/uL Metamyelocytes # (Man) (0) k/uL Myelocytes # (Manual) (0) k/uL Nucleated RBCs (0-0) /100 WBC Macrocytosis Sodium (137-145) mmol/L Chloride (98-107) mmol/L BUN (7-17) mg/dL Creatinine (0.52-1.04) mg/dL Glucose (74-99) mg/dL POC Glucose (mg/dL) 343 H (75-99) mg/dL Alkaline Phosphatase (38-126) U/L Troponin I (0.000-0.034) ng/mL Total Protein (6.3-8.2) g/dL
[2020-12-11] MEDS: VANCOMYCIN 1,250 MG in SODIUM CHLORIDE 0.9% 250 ML IVPB SCH (23:59)
[2020-12-12] MEDS: ONDANSETRON 4 MG TAB PO SCH ×3 (04:00→16:58)
[2020-12-12] MEDS: AZTREONAM 2 GM in SODIUM CHLORIDE 0.9% 100 ML IVPB SCH ×3 (04:07→20:35)
[2020-12-12] MEDS: LEVOTHYROXINE 100 MCG TAB PO SCH (05:57)
[2020-12-12 06:11] LABS: Glucose,Whole Blood 252 mg/dL (75-99)
[2020-12-12] MEDS: INSULIN DETEMIR (LEVEMIR) 100 UNIT/ML SYR SQ SCH ×2 (06:12→20:35)
[2020-12-12] MEDS: MORPHINE SULFATE ER 60 MG TABLET PO SCH ×2 (08:38→20:34)
[2020-12-12] MEDS: PANTOPRAZOLE 40 MG TABLET PO SCH (08:39)
[2020-12-12] MEDS: OXYBUTYNIN CHLORIDE 5 MG TAB PO SCH ×2 (08:39→20:34)
[2020-12-12] MEDS: GABAPENTIN 100 MG CAP PO SCH ×3 (08:39→20:34)
[2020-12-12] MEDS: VANCOMYCIN 1,250 MG in SODIUM CHLORIDE 0.9% 250 ML IVPB SCH (08:40)
[2020-12-12] MEDS: ANASTROZOLE 1 MG TAB PO SCH (08:40)
[2020-12-12] MEDS: ALPELISIB PO SCH (08:41)
[2020-12-12] MEDS: ENOXAPARIN 40 MG/0.4 ML SYRINGE SQ SCH ×2 (08:41→08:57)
--- NOTE | 2020-12-12 10:15 | CT ---
EXAMINATION TYPE: CT thoracic spine wo con DATE OF EXAM: 12/12/2020 COMPARISON: None HISTORY: Recent surgery. CT DLP: 1408.2 mGycm Automated exposure control for dose reduction was used. Unenhanced CT of the thoracic spine was perfo rmed with bone and soft tissue window settings submitted. FINDINGS: There are diffuse cellulitic metastatic lesions seen throughout the visualized thoracic spine. There is evidence of severe pathologic compression fractures involving T2, T7 and T10. There is evidence of decompressive laminectomy at the T10 level with pedicular screws and interconnecting rods in place. Partially imaged pedicular screws noted at L1 as well. Lytic lesions are seen of virtually all thorac ic segments in varying degrees with the exception of T6. Sternal lesions also noted. Multiple bilater al rib lesions noted. Spinal cord is poorly evaluated given lack of contrast and streak artifact. [place] pect epidural soft tissue at the T10 level. Streak artifact from metallic hardware limits evaluation. Bilateral pleural effusions and areas of infiltrate throughout the lungs. IMPRESSION: 1. Innumerable lytic lesions seen throughout the visualized thoracic spine, ribs and sternum. Severe compression fractures involving T2, T7 and T10. 2. Postoperative decompressive laminectomy with metallic hardware resulting in exam limitation from s treak artifact extending from T9 through L1. Suspect epidural soft tissue at the T10 level. Exam is l imited by lack of contrast
[2020-12-12 10:36] LABS: Anisocytosis Moderate; Basophils % (A) 0 %; Eosinophils % (A) 1 %; HCT 26.6 % (34.0-46.0); Hypochromasia Moderate; Lymphocytes # (A) 0.3 k/uL (1.0-4.8); Lymphocytes % (A) 10 %; MCH 32.2 pg (25.0-35.0); MCHC 31.5 g/dL (31.0-37.0); Macrocytosis Marked; Mean Platelet Volume 7.3; Monocytes # (A) 0.1 k/uL (0-1.0); Monocytes % (A) 5 %; Neutrophils # (A) 2.1 k/uL (1.3-7.7); Neutrophils % (A) 82 %; Platelet Count 179 k/uL (150-450); RDW 23.5 % (11.5-15.5); WBC 2.5 k/uL (3.8-10.6)
[2020-12-12 10:52] LABS: African American GFR (CKD) >90 (>60 ml/min/1.73 sqM); Anion Gap 7 mmol/L; Blood Urea Nitrogen 16 mg/dL (7-17); Calcium 8.2 mg/dL (8.4-10.2); Carbon Dioxide 27 mmol/L (22-30); Chloride 99 mmol/L (98-107); Glucose 149 mg/dL (74-99); Non-African American GFR(CKD) >90 (>60 ml/min/1.73 sqM); Potassium 3.3 mmol/L (3.5-5.1); Sodium 133 mmol/L (137-145)
[2020-12-12 11:16] LABS: C Reactive Protein 18.4 mg/dL (<1.0)
[2020-12-12 11:34] LABS: Glucose,Whole Blood 153 mg/dL (75-99)
[2020-12-12 11:37] LABS: MCV 102.2 fL (80.0-100.0)
--- NOTE | 2020-12-12 11:55 | P.CNOR ---
History of Present Illness - [facility] Consult date: 12/12/20 Consult reason: other (Thoracic spine wound) History of present illness: Patient is a 45 showed female who presents [facility] after being transferred from a group home in [facility] for further evaluation of a sacral decubitus ulcer and thoracic spine wound. Patient is a very complicated history with regards to her medical history. Patient was initially diagnosed with metastatic breast cancer in 2014, she has been undergoing chemotherapy since then. Patient is originally from [facility]. In early October she was visiting her family cottage in [place] when she had a fall. During the fall patient fractured her right humerus and right femur. There was also fractures of her thoracic spine. She was evaluated at a hospital in [facility]. She underwent surgery on both the femur and the humerus. She also underwent a thoracic surgery. Patient had original thoracic surgery done in 2019 at the [facility]. She also states she has had lumbar spine surgery. Patient was then transferred to a nursing facility in [facility] at the beginning of this month to undergo therapy. She has a lot of family and friends in this [facility] and grew up in this area. While at the rehab facility in [place], was noted she developed a sacral decubitus ulcer and some changes of the incision of the thoracic spine. They've been watching that over the last week or so. Cultures were taken of the decubitus ulcer, and after results were obtained, she was transferred to the hospital for further evaluation. There was also noted of the thoracic spine wound worsening with drainage. Patient was admitted to [facility] and internal medicine with many medical specialty placed on consult. Patient is scheduled for a procedure with Gen. surgery for the sacral decubitus ulcer today. Patient was scheduled to see Dr. Hernandez at [facility] on 12/13/2020 for continuation of care. Orthopedic team was consult said, but rereading internal medicine's note they mention consult in Dr. Hernandez. At bedside today, the patient is resting comfortably. She has no significant pain on the cervical, thoracic or lumbar spine. She has acute pain of the right humerus or right femur. She denies any other acute orthopedic complaints. Patient states that since early October, she has had loss of motion of the bilateral lower extremities. She admits to bowel bladder incontinence also. She continues to demonstrate good range of motion in the bilateral upper extremities, she does note numbness and tingling in the hands since the surgery in October 2020. Prior to the fall in October, she had noticed some weakness in the lower extremities but was able to ambulate with a walker. Review of Systems Constitutional: Reports as per HPI Past Medical History Past Medical History: Cancer, Diabetes Mellitus, Hyperlipidemia, Hypertension Additional Past Medical History / Comment(s): cancer with mets to lung and brain History of Any Multi-Drug Resistant Organisms: None Reported Past Surgical History: Unable to Obtain Additional Past Surgical History / Comment(s): october 2020 right femur FX with repair november 05 spinal surgery Past Psychological History: No Psychological Hx Reported Smoking Status: Never smoker Past Alcohol Use History: None Reported Past Drug Use History: None Reported Medications and Allergies Home Medications Medication Instructions Recorded Confirmed Type ALPRAZolam [Xanax] 0.25 mg PO DAILY PRN 12/11/20 12/11/20 History Acetaminophen Tab [Tylenol] 650 mg PO QID PRN 12/11/20 12/11/20 History Alpelisib [Piqray] 2 tab PO DAILY@1800 12/11/20 12/11/20 History Anastrozole [Arimidex] 1 mg PO HS 12/11/20 12/11/20 History Bisacodyl 10 mg PO DAILY PRN 12/11/20 12/11/20 History Collagenase [Santyl] 1 applic TOPICAL DAILY 12/11/20 12/11/20 History Enoxaparin [Lovenox] 40 mg SQ DAILY@0800 12/11/20 12/11/20 History Gabapentin [Neurontin] 100 mg PO TID@0600,1400,2200 12/11/20 12/11/20 History Glucerna Shake 120 ml PO TID@0800,1200,1700 12/11/20 12/11/20 History HYDROmorphone [Dilaudid] 2 - 4 mg PO Q6H PRN 12/11/20 12/11/20 History INSULIN ASPART (NovoLOG) [NovoLOG 20 unit SQ AC-TID 12/11/20 12/11/20 History (formulary)] INSULIN ASPART (NovoLOG) [NovoLOG See Protocol SQ AC-TID 12/11/20 12/11/20 History (formulary)] Insulin Glargine [Lantus] 50 unit SQ BID@0800,2100 12/11/20 12/11/20 History Levothyroxine Sodium [Synthroid] 200 mcg PO DAILY@0600 12/11/20 12/11/20 History Magnesium Hydroxide [Milk of 7,200 mg PO DAILY PRN 12/11/20 12/11/20 History Magnesia Concentrate] Methylphenidate HCl [Ritalin] 10 mg PO BID@0800,1700 12/11/20 12/11/20 History Morphine Sulfate ER [Ms Contin] 60 mg PO Q12HR 12/11/20 12/11/20 History Na Phos,M-B/Na Phos,Di-Ba [Fleet 133 ml RECTAL DAILY PRN 12/11/20 12/11/20 History Adult] Nystatin 100,000 Unit/ml Susp 500,000 units PO QID 12/11/20 12/11/20 History [Mycostatin Oral Susp] OLANZapine [ZyPREXA] 5 mg PO HS 12/11/20 12/11/20 History Oxybutynin Chloride [Ditropan] 5 mg PO BID@0800,1700 12/11/20 12/11/20 History Pantoprazole Sodium [Protonix] 40 mg PO DAILY@0800 12/11/20 12/11/20 History Polyethylene Glycol 3350 [Miralax] 17 gm PO BID 12/11/20 12/11/20 History Potassium Chloride [Klor-Con 10] 20 meq PO BID@0800,1700 12/11/20 12/11/20 History bisacodyL [Dulcolax] 10 mg RECTAL DAILY PRN 12/11/20 12/11/20 History dexAMETHasone [Dexamethasone] See Taper PO BID@0800,1700 12/11/20 12/11/20 History metFORMIN HCL [Glucophage] 1,000 mg PO BID@0800,1700 12/11/20 12/11/20 History ondansetron HCL [Zofran] 8 mg PO Q8H PRN 12/11/20 12/11/20 History tiZANidine [Zanaflex] 2 mg PO TID PRN 12/11/20 12/11/20 History Allergies Allergy/AdvReac Type Severity Reaction Status Date / Time acetaminophen [From [place]] Allergy Rash/Hives Verified 12/11/20 10:39 fish derived Allergy Rash/Hives Verified 12/11/20 10:39 hydrocodone [From [place]] Allergy Rash/Hives Verified 12/11/20 10:39 Penicillins Allergy Rash/Hives Verified 12/11/20 10:39 Physical Examination Gen: AOx3, NAD VSS stable at this time Integument: Thoracic incision present, it measures roughly 12-16 inches. There are Steri- Strips present. There is area of granulation tissue throughout. There is a small opening at the proximal end of the incision, there is a large 35 centimeter open area in the distal end of the incision that is draining serosanguineous fluid. Palpation: No significant tenderness with palpation of the midline or paraspinal region of the cervical, thoracic or lumbar spine ROM: Range of motion all major muscle groups in the bilateral upper extremities are intact, right upper extremity is limited from previous surgery very limited Range of motion of the bilateral lower extremities are very limited at this time, she is able to plantar and dorsiflex. She is unable to flex the knees or hips Sensory Exam: [place] exam to light touch is intact C5-T1 [place] exam to light touch is intact L2-S1 Motor: 35 strength appreciated in the right upper extremity with shoulder flexion, abduction, elbow extension, elbow flexion, wrist extension, wrist flexion 4-5 strength is appreciated in the left upper extremity with shoulder flexion, abduction, elbow extension, elbow flexion, wrist extension, wrist flexion 15 strength is appreciated in the bilateral lower extremities with hip flexion, extension, knee flexion, dorsiflexion, and her flexion, EHL, FHL Results - Labs Labs: Abnormal Lab Results - Last 24 Hours (Table) 12/11/20 12/11/20 12/11/20 Range/Units 15:51 19:37 21:53 Sodium (137-145) mmol/L Potassium (3.5-5.1) mmol/L Creatinine (0.52-1.04) mg/dL Glucose (74-99) mg/dL POC Glucose (mg/dL) 320 H (75-99) mg/dL Calcium (8.4-10.2) mg/dL Troponin I 0.048 H* 0.038 H* (0.000-0.034) ng/mL C-Reactive Protein (<1.0) mg/dL 12/12/20 12/12/2012/12/21 Range/Units 06:10 09:59 11:34 Sodium 133 L (137-145) mmol/L Potassium 3.3 L (3.5-5.1) mmol/L Creatinine 0.34 L (0.52-1.04) mg/dL Glucose 149 H (74-99) mg/dL POC Glucose (mg/dL) 252 H 153 H (75-99) mg/dL Calcium 8.2 L (8.4-10.2) mg/dL Troponin I (0.000-0.034) ng/mL C-Reactive Protein 18.4 H (<1.0) mg/dL Microbiology - Last 24 Hours (Table) 12/11/20 08:15 Blood Culture - Preliminary Blood No Growth after 24 hours 12/11/20 08:00 Blood Culture - Preliminary Blood No Growth after 24 hours H & H 12/11/20 Range/Units 08:15 Hgb 9.9 L (11.4-16.0) gm/dL Hct 30.5 L (34.0-46.0) % Coagulation 12/11/20 Range/Units 08:15 INR 1.0 (<1.2) Result Diagrams: 12/11/20 08:15 12/12/20 09:59 Assessment and Plan Assessment: History of previous thoracic/lumbar decompression and fusion, most recent surgery October 2020, previous surgery of October 2019 Thoracic spine wound dehiscence History of previous lumbar surgery Sacral decubitus ulcer Metastatic breast cancer Plan: Imaging: Computed tomography scan of the thoracic spine was done. Report along with images were reviewed. They do demonstrate hardware from T11 to L1, this consisting of screws and rods. Compression fractures noted at T2, T5 and T10. There also noted multiple lytic lesions throughout the thoracic spine Plan: I was able to discuss the case, including his physical exam findings and imaging studies with my attending Dr. Potts Taking into consideration the patient's multiple surgeries and current medical condition, we are recommending transfer to tertiary care facility for further workup and surgical options. Patient will likely require multiple surgical specialties, including orthopedic spine/neurosurgery/orthopedic oncology/hematology-oncology and possibly plastic surgery Consult will be placed for Dr. Hernandez from [facility] for his recommendations We'll be available for any further questions regarding this patient. Time with Patient: Less than 30
[2020-12-12 12:44] LABS: Erythrocyte Sedimentation Rate 66 mm/hr (0-20)
[2020-12-12 13:02] LABS: HGB 8.4 gm/dL (11.4-16.0)
--- NOTE | 2020-12-12 13:55 | P.PN ---
Subjective Progress Note Date: 12/12/20 Chief Complaint: Disorientation, fever, large decubitus ulcer This is a 45-year-old pleasant lady, resides at [facility] under the care of Dr. Tran, known history of breast cancer with metastatic, diagnosed in 2014, upon diagnosis sure that metastatic lesions to the bone. She did not require mastectomy at that time, however she is on chemotherapy. Oncology would be at [facility] She had decubitus ulcer diagnosed 3 weeks ago, after decompression surgery involving lumbar spine, done at [facility] in [place], 3 weeks ago. She went to [facility], for which she is therefore rehabilitation. Patient requires a Marko lift, cannot ambulate and cannot move the leg spontaneously. She was noted to have fever this morning, and when she woke up she was disoriented, she was subsequently transferred to [facility]. She has a decubitus ulcer with foul-smelling large ulceration, this is being treated with 3+, no oral antibiotic, it's worse for the past 2 weeks, now with us foul-smelling odor, measuring 5 cm x 2 cm stage III. In the emergency room she was given information of the culture that was done December 08, growing pseudomonas aeruginosa, and Enterococcus faecalis, she was given cepefijme, pseudomonas is pansensitive, enterococcus is resistant to erythromycin, we'll going to start on levofloxacin IV and IV flagyn empiric, no drug ALLERGIES noted with this antibiotic. Patient has penicillin ALLERGY, with difficulty breathing and throat swelling consult with Dr. Harris, Dr. Menjivar for debridement of the sacral wound, and Dr. Hernandez for possible discitis, osteomyelitis. Patient has fever, delirium, with encephalopathy like picture, h owever this is transient, we've discussed this with emergency room physician, before her acceptance here, that I would prefer her to be sent to a tertiary facility that has done her spine decompression, as there is drainage from the wound in the surgical spine area however the family declined this option, as it is too far in [place]. Also at her primary care physician Deepti Bhandari, Dr. Tran requested that the patient stay locally, as this is uncomfortable for her, patient did not want any palliative treatments yet, however she is DO NOT RESUSCITATE, no CPR no ventilation She is taking morphine 60 mg twice a day, along with Dilaudid 2 mg every 4 hours, at the intermediate prior to admission. She is on Lantus for diabetes NovoLog premix,, gabapentin, Zyprexa, she is on piqray and Arimidex for metastatic breast cancer dexamethasone 2-4 mg as directed 12/12 patient is done for excisional debridement by Dr. Roberson today, CT thoracic spine currently pending, Recommendations to follow from Dr. Menjivar local wound care, might need wound VAC,, as well as orthopedic spine imaging completed.. Review of Systems Constitutional: Reports as per HPI, Reports chills, Reports fatigue, Reports fever, Reports lethargy Ears, nose, mouth and throat: Reports as per HPI, Denies hoarseness, Denies nasal discharge, Denies neck lump, Denies odynophagia, Denies vertigo Cardiovascular: Reports as per HPI, Reports decreased exercise tolerance, Reports dyspnea on exertion, Denies shortness of breath Respiratory: Reports as per HPI, Denies cough with sputum, Denies pain on inspiration, Denies respiratory infections, Denies sleep apnea Gastrointestinal: Reports as per HPI Genitourinary: Reports as per HPI Menstruation: Reports as per HPI Musculoskeletal: Reports as per HPI, Reports myalgias, Denies gait dysfunction, Denies limitation of motion Integumentary: Reports as per HPI, Reports color changes, Reports wounds (Pressure ulcer acute coccyx sacrum) Neurological: Reports as per HPI, Reports balance difficulties, Reports gait dysfunction, Reports lack of coordination Psychiatric: Reports as per HPI, Reports disorientation, Reports insomnia Endocrine: Reports as per HPI, Reports weight change, Denies nocturia, Denies palpitations Hematologic/Lymphatic: Reports as per HPI, Reports easy bleeding Allergic/Immunologic: Reports persistent infections Objective - Vital Signs Vital signs: Vital Signs Temp 100.3 F H 12/12/20 12:18 Pulse 96 12/12/20 12:18 Resp 16 12/12/20 12:18 BP 104/67 12/12/20 12:18 Pulse Ox 97 12/12/20 12:18 Intake & Output 12/11/20 12/12/20 12/12/20 18:59 06:59 18:59 Intake Total 890 Balance 890 Weight 63.503 kg 76 kg Intake: Intake, IV Titration 650 Amount Aztreonam 2 gm In Sodium 100 Chloride 0.9% 100 ml @ 33 .3 mls/hr IVPB Q8H [facility] Rx #:[id number] Sodium Chloride 0.9% 1, 300 000 ml @ 75 mls/hr IV . [id number] [facility] Rx#:[id number] Vancomycin 1,250 mg In 250 Sodium Chloride 0.9% 250 ml @ 125 mls/hr IVPB Q8HR [facility] Rx#:[id number] Oral 240 Other: Voiding Method Diaper External Catheter Incontinent # Voids 2 - Constitutional General appearance: Present: average body habitus, cooperative, no acute distress, obese - EENT Eyes: Present: EOMI, PERRLA, dentition normal - Neck Neck: Present: normal ROM - Respiratory Respiratory: bilateral: CTA, negative: diminished, dullness, rhonchi - Cardiovascular Rhythm: regular Heart sounds: normal: S1 Abnormal Heart Sounds: Absent: systolic murmur, diastolic murmur, rub, S3 Gallop, S4 Gallop, click, other - Musculoskeletal Musculoskeletal Comment(s): Unable to move bilateral lower legs Musculoskeletal: Present: right sided weakness, left sided weakness - Psychiatric Psychiatric: Present: A&O x's 3, appropriate affect, intact judgment & insight - Labs CBC & Chem 7: 12/12/20 09:59 12/12/20 09:59 Labs: Abnormal Lab Results - Last 24 Hours (Table) 12/11/20 12/11/20 12/11/20 Range/Units 15:51 19:37 21:53 WBC (3.8-10.6) k/uL RBC (3.80-5.40) m/uL Hgb (11.4-16.0) gm/dL Hct (34.0-46.0) % MCV (80.0-100.0) fL RDW (11.5-15.5) % Lymphocytes # (1.0-4.8) k/uL Macrocytosis ESR (0-20) mm/hr Sodium (137-145) mmol/L Potassium (3.5-5.1) mmol/L Creatinine (0.52-1.04) mg/dL Glucose (74-99) mg/dL POC Glucose (mg/dL) 320 H (75-99) mg/dL Calcium (8.4-10.2) mg/dL Troponin I 0.048 H* 0.038 H* (0.000-0.034) ng/mL C-Reactive Protein (<1.0) mg/dL 12/12/20 12/12/20 12/12/20 Range/Units 06:10 09:59 09:59 WBC 2.5 L (3.8-10.6) k/uL RBC 2.60 L (3.80-5.40) m/uL Hgb 8.4 L D (11.4-16.0) gm/dL Hct 26.6 L (34.0-46.0) % MCV 102.2 H (80.0-100.0) fL RDW 23.5 H (11.5-15.5) % Lymphocytes # 0.3 L (1.0-4.8) k/uL Macrocytosis Marked A ESR 66 H (0-20) mm/hr Sodium 133 L (137-145) mmol/L Potassium 3.3 L (3.5-5.1) mmol/L Creatinine 0.34 L (0.52-1.04) mg/dL Glucose 149 H (74-99) mg/dL POC Glucose (mg/dL) 252 H (75-99) mg/dL Calcium 8.2 L (8.4-10.2) mg/dL Troponin I (0.000-0.034) ng/mL C-Reactive Protein 18.4 H (<1.0) mg/dL 12/12/20 Range/Units 11:34 WBC (3.8-10.6) k/uL RBC (3.80-5.40) m/uL Hgb (11.4-16.0) gm/dL Hct (34.0-46.0) % MCV (80.0-100.0) fL RDW (11.5-15.5) % Lymphocytes # (1.0-4.8) k/uL Macrocytosis ESR (0-20) mm/hr Sodium (137-145) mmol/L Potassium (3.5-5.1) mmol/L Creatinine (0.52-1.04) mg/dL Glucose (74-99) mg/dL POC Glucose (mg/dL) 153 H (75-99) mg/dL Calcium (8.4-10.2) mg/dL Troponin I (0.000-0.034) ng/mL C-Reactive Protein (<1.0) mg/dL Microbiology - Last 24 Hours (Table) 12/11/20 08:15 Blood Culture - Preliminary Blood No Growth after 24 hours 12/11/20 08:00 Blood Culture - Preliminary Blood No Growth after 24 hours Assessment and Plan Plan: 1. Encephalopathy, secondary to sepsis, primary source could be the pseudomonas and enterococcus as noted from sacral decub foul-smelling lesion, however there is also an noticeable drainage from the spinal wound for which this going to be looking to by Dr. Hernandez, and Dr. Otto Harris which is sensitive to the microbes isolated, and IV Flagyl to be started, patient has penicillin ALLERGY, cefepime given 1 dose in the ER, discussed with Dr. Harris, start on vancomycin and aztreonam, excisional debridement performed, 11/1919 Dr. Menjivar 2. Breast cancer with metastases to the brain, and spinal column, patient is on piqray and dexamethasone, and Arimidex consult with Dr. Shepard underlying brain tori ma suspected well on dexamethasone, 3. Spinal decompression less than 3 weeks ago, secondary to pathological fracture suspected, no notes for review, consult with Dr. Hernandez, there is support for drainage in the surgical wound from this area, we'll going to obtain wound cultures also from the surgical wound unable to 4. Chronic pain, secondary to malignancy, skeletal metastases noted, on morphi ne 60 mg twice a day, and oral Dilaudid, 2 mg every 4 hours, morphine ER would be continued, and IV Dilaudid on a when necessary basis. 4 mg every 6 5. Diabetes mellitus type 2, on metformin, check A1c patient is on NovoLog 20 units 3 times a day, Levemir 50 units twice a day check 6. Hypothyroid on levothyroid 200 mcg daily 7. Chronic fatigue, on dexamethasone, for brain metastases possibly swelling, also on methylphenidate, 8. DVT prophylaxis with Lovenox 9. GI prophylaxis with IV Protonix CODE STATUS, DO NOT RESUSCITATE, patient does not want palliative treatment
[2020-12-12] MEDS ORDERED: LACTATED RINGERS 1,000 ML IV ONE ×2 (13:56)
[2020-12-12] MEDS ORDERED: VANCOMYCIN 1,500 MG in SODIUM CHLORIDE 0.9% 250 ML IVPB SCH (14:00)
--- NOTE | 2020-12-12 14:12 | P.CONS ---
History of Present Illness - Reason for Consult Consult date: 12/12/20 metastatic Breast Cancer Requesting physician: Shruthi Doty - Chief Complaint osteomelitis - History of Present Illness Very pleasant 45 year old female with unfortunetly widespread metastatic breast cancer, she follows with oncology at [facility]. We have been asked to see regarding her current treatment piqray and Arimidex while hospitalized with possible osteomyelitis. Review of Systems All systems: negative Constitutional: Reports as per HPI Past Medical History Past Medical History: Cancer, Diabetes Mellitus, Hyperlipidemia, Hypertension Additional Past Medical History / Comment(s): cancer with mets to lung and brain History of Any Multi-Drug Resistant Organisms: None Reported Past Surgical History: Unable to Obtain Additional Past Surgical History / Comment(s): october 2020 right femur FX with repair november 05 spinal surgery Past Psychological History: No Psychological Hx Reported Smoking Status: Never smoker Past Alcohol Use History: None Reported Past Drug Use History: None Reported Medications and Allergies Home Medications Medication Instructions Recorded Confirmed Type ALPRAZolam [Xanax] 0.25 mg PO DAILY PRN 12/11/20 12/11/20 History Acetaminophen Tab [Tylenol] 650 mg PO QID PRN 12/11/20 12/11/20 History Alpelisib [Piqray] 2 tab PO DAILY@1800 12/11/20 12/11/20 History Anastrozole [Arimidex] 1 mg PO HS 12/11/20 12/11/20 History Bisacodyl 10 mg PO DAILY PRN 12/11/20 12/11/20 History Collagenase [Santyl] 1 applic TOPICAL DAILY 12/11/20 12/11/20 History Enoxaparin [Lovenox] 40 mg SQ DAILY@0800 12/11/20 12/11/20 History Gabapentin [Neurontin] 100 mg PO TID@0600,1400,2200 12/11/20 12/11/20 History Glucerna Shake 120 ml PO TID@0800,1200,1700 12/11/20 12/11/20 History HYDROmorphone [Dilaudid] 2 - 4 mg PO Q6H PRN 12/11/20 12/11/20 History INSULIN ASPART (NovoLOG) [NovoLOG 20 unit SQ AC-TID 12/11/20 12/11/20 History (formulary)] INSULIN ASPART (NovoLOG) [NovoLOG See Protocol SQ AC-TID 12/11/20 12/11/20 History (formulary)] Insulin Glargine [Lantus] 50 unit SQ BID@0800,2100 12/11/20 12/11/20 History Levothyroxine Sodium [Synthroid] 200 mcg PO DAILY@0600 12/11/20 12/11/20 History Magnesium Hydroxide [Milk of 7,200 mg PO DAILY PRN 12/11/20 12/11/20 History Magnesia Concentrate] Methylphenidate HCl [Ritalin] 10 mg PO BID@0800,1700 12/11/20 12/11/20 History Morphine Sulfate ER [Ms Contin] 60 mg PO Q12HR 12/11/20 12/11/20 History Na Phos,M-B/Na Phos,Di-Ba [Fleet 133 ml RECTAL DAILY PRN 12/11/20 12/11/20 History Adult] Nystatin 100,000 Unit/ml Susp 500,000 units PO QID 12/11/20 12/11/20 History [Mycostatin Oral Susp] OLANZapine [ZyPREXA] 5 mg PO HS 12/11/20 12/11/20 History Oxybutynin Chloride [Ditropan] 5 mg PO BID@0800,1700 12/11/20 12/11/20 History Pantoprazole Sodium [Protonix] 40 mg PO DAILY@0800 12/11/20 12/11/20 History Polyethylene Glycol 3350 [Miralax] 17 gm PO BID 12/11/20 12/11/20 History Potassium Chloride [Klor-Con 10] 20 meq PO BID@0800,1700 12/11/20 12/11/20 History bisacodyL [Dulcolax] 10 mg RECTAL DAILY PRN 12/11/20 12/11/20 History dexAMETHasone [Dexamethasone] See Taper PO BID@0800,1700 12/11/20 12/11/20 History metFORMIN HCL [Glucophage] 1,000 mg PO BID@0800,1700 12/11/20 12/11/20 History ondansetron HCL [Zofran] 8 mg PO Q8H PRN 12/11/20 12/11/20 History tiZANidine [Zanaflex] 2 mg PO TID PRN 12/11/20 12/11/20 History Allergies Allergy/AdvReac Type Severity Reaction Status Date / Time acetaminophen [From [place]] Allergy Rash/Hives Verified 12/11/20 10:39 fish derived Allergy Rash/Hives Verified 12/11/20 10:39 hydrocodone [From [place]] Allergy Rash/Hives Verified 12/11/20 10:39 Penicillins Allergy Rash/Hives Verified 12/11/20 10:39 Physical Exam Vitals: Vital Signs Temp Pulse Pulse Resp BP BP Pulse Ox 12/12/20 14:04 97.4 F L 100 16 106/62 93 L 12/12/20 12:18 100.3 F H 96 16 104/67 97 12/12/20 08:00 98.6 F 105 H 16 111/73 98 12/12/20 02:00 98.2 F 94 18 104/70 96 12/11/20 22:25 98.0 F 92 18 106/71 100 12/11/20 21:07 82 18 118/78 100 12/11/20 20:00 84 18 113/75 100 12/11/20 19:00 98.0 F 91 16 114/76 100 12/11/20 17:30 82 114/76 99 12/11/20 17:00 84 114/76 100 12/11/20 16:30 86 99 12/11/20 16:00 86 114/76 99 12/11/20 15:30 86 114/76 97 12/11/20 15:00 115/80 12/11/20 14:43 99.2 F 100 20 111/74 95 12/11/20 14:30 90 115/80 99 Intake and Output 12/11/20 12/12/20 12/12/20 22:59 06:59 14:59 Intake Total 890 Balance 890 Intake: Intake, IV Titration 650 Amount Aztreonam 2 gm In Sodium 100 Chloride 0.9% 100 ml @ 33 .3 mls/hr IVPB Q8H [facility] Rx #:[id number] Sodium Chloride 0.9% 1, 300 000 ml @ 75 mls/hr IV . [id number] [facility] Rx#:[id number] Vancomycin 1,250 mg In 250 Sodium Chloride 0.9% 250 ml @ 125 mls/hr IVPB Q8HR [facility] Rx#:[id number] Oral 240 Other: Voiding Method Diaper External Catheter Incontinent # Voids 2 # Bowel Movements 1 Weight 76 kg - Constitutional General appearance: cooperative, no acute distress - EENT Eyes: EOMI ENT: NA/AT, normal oropharynx - Neck Neck: normal ROM - Respiratory Respiratory: bilateral: CTA - Cardiovascular Rhythm: regular - Gastrointestinal General gastrointestinal: normal bowel sounds, soft - Integumentary Integumentary: pale - Musculoskeletal minimal feeling and movement ble - Psychiatric Psychiatric: A&O x's 3, appropriate affect Results CBC & Chem 7: 12/12/20 09:59 12/13/20 07:52 Labs: Abnormal Lab Results - Last 24 Hours (Table) 12/11/20 12/11/20 12/11/20 Range/Units 15:51 19:37 21:53 WBC (3.8-10.6) k/uL RBC (3.80-5.40) m/uL Hgb (11.4-16.0) gm/dL Hct (34.0-46.0) % MCV (80.0-100.0) fL RDW (11.5-15.5) % Lymphocytes # (1.0-4.8) k/uL Macrocytosis ESR (0-20) mm/hr Sodium (137-145) mmol/L Potassium (3.5-5.1) mmol/L Creatinine (0.52-1.04) mg/dL Glucose (74-99) mg/dL POC Glucose (mg/dL) 320 H (75-99) mg/dL Calcium (8.4-10.2) mg/dL Troponin I 0.048 H* 0.038 H* (0.000-0.034) ng/mL C-Reactive Protein (<1.0) mg/dL 12/12/20 12/12/20 12/12/20 Range/Units 06:10 09:59 09:59 WBC 2.5 L (3.8-10.6) k/uL RBC 2.60 L (3.80-5.40) m/uL Hgb 8.4 L D (11.4-16.0) gm/dL Hct 26.6 L (34.0-46.0) % MCV 102.2 H (80.0-100.0) fL RDW 23.5 H (11.5-15.5) % Lymphocytes # 0.3 L (1.0-4.8) k/uL Macrocytosis Marked A ESR 66 H (0-20) mm/hr Sodium 133 L (137-145) mmol/L Potassium 3.3 L (3.5-5.1) mmol/L Creatinine 0.34 L (0.52-1.04) mg/dL Glucose 149 H (74-99) mg/dL POC Glucose (mg/dL) 252 H (75-99) mg/dL Calcium 8.2 L (8.4-10.2) mg/dL Troponin I (0.000-0.034) ng/mL C-Reactive Protein 18.4 H (<1.0) mg/dL 12/12/20 Range/Units 11:34 WBC (3.8-10.6) k/uL RBC (3.80-5.40) m/uL Hgb (11.4-16.0) gm/dL Hct (34.0-46.0) % MCV (80.0-100.0) fL RDW (11.5-15.5) % Lymphocytes # (1.0-4.8) k/uL Macrocytosis ESR (0-20) mm/hr Sodium (137-145) mmol/L Potassium (3.5-5.1) mmol/L Creatinine (0.52-1.04) mg/dL Glucose (74-99) mg/dL POC Glucose (mg/dL) 153 H (75-99) mg/dL Calcium (8.4-10.2) mg/dL Troponin I (0.000-0.034) ng/mL C-Reactive Protein (<1.0) mg/dL Microbiology - Last 24 Hours (Table) 12/11/20 08:15 Blood Culture - Preliminary Blood No Growth after 24 hours 12/11/20 08:00 Blood Culture - Preliminary Blood No Growth after 24 hours Assessment and Plan (1) Metastatic breast cancer Current Visit: Yes Status: Acute Code(s): C50.919 - MALIGNANT NEOPLASM OF UNSP SITE OF UNSPECIFIED FEMALE BREAST SNOMED Code(s): 952124340 Plan: Patient has already spoken with her primary oncologist and they have advised her to hold her piqray and AI at this time, which is reasonable. Otherwise acute hospitalization per surgical, ID and Primary team. She will follow-up with primary treating oncology team out of [facility] after d ischarge. Physician attest: I have completed the full history and physical and agree with above dictation, dictated as a ascribe.
[2020-12-12] MEDS ORDERED: DEXTROSE 50% SYRINGE 50 ML IVP ONE (14:13)
[2020-12-12 14:18] LABS: Glucose,Whole Blood 57 mg/dL (75-99)
[2020-12-12] MEDS ORDERED: Potassium Replacement Protocol 1 EACH MISC MISCELLANE PRN (14:18)
[2020-12-12] MEDS ORDERED: fentaNYL (PF) 50 MCG/ML 2 ML AMP ONE (14:20)
[2020-12-12] MEDS ORDERED: LIDOCAINE 1% INJ 10MG/ML (20 ML MDV) ONE (14:20)
[2020-12-12] MEDS ORDERED: PROPOFOL 10 MG/ML 20 ML VIAL IV ONE (14:20)
[2020-12-12] MEDS ORDERED: PHENYLEPHRINE-0.9% NACL SYG 1,000 MCG/10 ML SYRINGE ONE (14:20)
[2020-12-12 15:16] LABS: Glucose,Whole Blood 110 mg/dL (75-99)
--- NOTE | 2020-12-12 15:31 | P.OP ---
Date of Procedure: 12/12/20 Preoperative Diagnosis: Sacral decubitus ulcer Postoperative Diagnosis: Sacral decubitus ulcer Procedure(s) Performed: Excisional debridement sacral decubitus ulcer Anesthesia: ADELA Surgeon: Judith Menjivar Estimated Blood Loss (ml): 100 Pathology: other Condition: stable Disposition: PACU Description of Procedure: The patient's taken the operative suite where she is prepped and draped in the usual sterile manner under general endotracheal anesthetic. She has full thickness skin necrosis along with subcutaneous tissue. This is obviously infected so deep cultures were obtained. The necrotic subcutaneous fat was debrided back to healthy bleeding tissue. Small bleeding points were controlled with electrocautery. This left a skin defect of 7.5 x 2.5 cm. The depth was about 2cm. Undermines superiorly 1.5 cm. Undermines to the right 1/2 cm. Undermines to the left 0.5 cm. The wound was then packed with Aquacel Ag and gauze pads and covered with ABD pad. Close were then changed and the lumen on the upper back was examined. There is 4 cm of skin opening inferiorly. The wound was probed with sterile gloved finger and there is obvious bony fragments. This was packed with some Aquacel Ag packing. On the upper portion of the incision benzoin and Steri-Strips were used to approximate the skin so that hopefully that would not open up. A dressing was applied. She tolerated the procedure without difficulty and was taken recovery room in satisfactory condition. According to or personnel, all counts were correct.
[2020-12-12 15:43] LABS: Glucose,Whole Blood 116 mg/dL (75-99)
[2020-12-12 16:41] LABS: Glucose,Whole Blood 67 mg/dL (75-99)
[2020-12-12] MEDS: HYDROmorphone 2 MG TAB PO PRN (16:58)
[2020-12-12] MEDS: POTASSIUM CHLORIDE ER 20 MEQ TAB.ER PO SCH ×2 (17:00→17:54)
[2020-12-12] MEDS: SODIUM CHLORIDE 0.9% 1,000 ML IV SCH (17:00)
[2020-12-12 17:02] LABS: Glucose,Whole Blood 65 mg/dL (75-99)
[2020-12-12 17:21] LABS: Glucose,Whole Blood 95 mg/dL (75-99)
[2020-12-12 19:53] LABS: Glucose,Whole Blood 113 mg/dL (75-99)
[2020-12-12] MEDS: OLANZapine 5 MG TAB PO SCH (20:38)
--- NOTE | 2020-12-12 22:57 | PN ---
PROGRESS NOTE DATE OF SERVICE: 12/12/2020 REASON FOR FOLLOW UP: Surgical site infection. INTERVAL HISTORY: Patient is afebrile. The patient is breathing comfortably. No chest pain. No shortness of breath or cough. No vomiting. No abdominal pain. No diarrhea. PHYSICAL EXAMINATION: Blood pressure 117/81 with a pulse of 110. Temperature 98.5. She is 99% on room air. General description is a middle-aged female lying in bed in no distress. Respiratory system: Unlabored breathing, clear to auscultation anteriorly. Heart S1, S2. Regular rate and rhythm. Abdomen: Soft, no tenderness. LABS: No new labs been obtained today. DIAGNOSTIC IMPRESSION AND PLAN: Patient with surgical site infection also with stage III sacral ulcer status post debridement. Waiting for Spine surgery evaluation or possible transfer to the tertiary care. Outpatient culture positive for Pseudomonas and Enterococcus. The patient did have PENICILLIN allergy covered with Azactam and Vanco to continue while monitoring clinical course closely. Prognosis remains to be guarded. MMODL / IJN: [id number] /
[2020-12-13] MEDS: ONDANSETRON 4 MG TAB PO SCH ×4 (00:51→23:45)
[2020-12-13] MEDS: VANCOMYCIN 1,500 MG in SODIUM CHLORIDE 0.9% 250 ML IVPB SCH ×2 (00:51→10:41)
[2020-12-13] MEDS: SODIUM CHLORIDE 0.9% 1,000 ML IV SCH ×2 (05:24→17:55)
[2020-12-13] MEDS: AZTREONAM 2 GM in SODIUM CHLORIDE 0.9% 100 ML IVPB SCH ×3 (05:24→21:10)
[2020-12-13 06:03] LABS: Glucose,Whole Blood 111 mg/dL (75-99)
[2020-12-13] MEDS: LEVOTHYROXINE 100 MCG TAB PO SCH (06:40)
[2020-12-13] MEDS: INSULIN DETEMIR (LEVEMIR) 100 UNIT/ML SYR SQ SCH ×2 (06:41→21:09)
[2020-12-13] MEDS ORDERED: VANCOMYCIN TROUGH DUE 1 EACH MISC MISCELLANE ONE (08:00)
--- NOTE | 2020-12-13 08:15 | P.CNOR ---
History of Present Illness - HPI Consult date: 12/13/20 Consult reason: other History of present illness: Patient is a very pleasant 45-year-old female who is seen and examined today at bedside. She is a long extended history since being diagnosed with metastatic breast cancer in 2015. Most recently we're following the patient in regards to her multiple orthopedic pathologic fractures and postoperative treatment. She has undergone extensive orthopedic treatment and spine treatment for her pathologic fractures due to her metastasis. Most recently she has undergone spinal surgery on November 05 for multiple spinal metastasis with pathologic fractures and neurologic compromise. She had undergone a posterior lumbar decompression and fusion in [place] from T8 to L1. 2 weeks prior to that she had sustained an injury when she was at her vacation in [place] and she collapsed in the bathroom due to pathologic fracture of her femur. On October 24 was last time that the patient was able to get up and ambulate. She had gotten up and had a pathologic fracture of her right femur. She underwent surgical intervention with erlinda fixation of right femur and had sustained a right humerus fracture which also went through erlinda fixation. One year prior to that in October 2019 the patient had sustained a left femur pathologic fracture and underwent intramedullary erlinda fixation for that as well. The patient says that before October 2020 she had been able to move to some degree using a walker or a cane but was not able to do stairs. She still needed significant help but since October she has had a great deal of worsening of her lower extremity status and has not been able to get out of bed on her own at all. She had been vacationing in [place] when these multiple surgeries occurred and returned [place] where she grew up and has significant family in the area. She had been living in [place] with her prior to her trip to [place]. Review of Systems She has decreased sensation in her bilateral lower extremities from her hips down. She says she is able to move her legs very slightly. She feels that she can move her arms some degree. She denies any chest pain shortness breath. She denies any fevers. 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 As stated per HPI with history of spinal surgery in 2019 and the surgery November 05 with fusion and decompression from T8 to L1 status post fall which o ccurred on 10/24/2020 where she is is also sustained a right femur and right humerus fractures and underwent surgical intervention for those. History of prior left femur surgery in October 2019 History of Any Multi-Drug Resistant Organisms: None Reported Past Surgical History: Unable to Obtain Additional Past Surgical History / Comment(s): october 2020 right femur FX with repair november 05 spinal surgery Past Psychological History: No Psychological Hx Reported Smoking Status: Never smoker Past Alcohol Use History: None Reported Past Drug Use History: None Reported Medications and Allergies Home Medications Medication Instructions Recorded Confirmed Type ALPRAZolam [Xanax] 0.25 mg PO DAILY PRN 12/11/20 12/11/20 History Acetaminophen Tab [Tylenol] 650 mg PO QID PRN 12/11/20 12/11/20 History Alpelisib [Piqray] 2 tab PO DAILY@1800 12/11/20 12/11/20 History Anastrozole [Arimidex] 1 mg PO HS 12/11/20 12/11/20 History Bisacodyl 10 mg PO DAILY PRN 12/11/20 12/11/20 History Collagenase [Santyl] 1 applic TOPICAL DAILY 12/11/20 12/11/20 History Enoxaparin [Lovenox] 40 mg SQ DAILY@0800 12/11/20 12/11/20 History Gabapentin [Neurontin] 100 mg PO TID@0600,1400,2200 12/11/20 12/11/20 History Glucerna Shake 120 ml PO TID@0800,1200,1700 12/11/20 12/11/20 History HYDROmorphone [Dilaudid] 2 - 4 mg PO Q6H PRN 12/11/20 12/11/20 History INSULIN ASPART (NovoLOG) [NovoLOG 20 unit SQ AC-TID 12/11/20 12/11/20 History (formulary)] INSULIN ASPART (NovoLOG) [NovoLOG See Protocol SQ AC-TID 12/11/20 12/11/20 History (formulary)] Insulin Glargine [Lantus] 50 unit SQ BID@0800,2100 12/11/20 12/11/20 History Levothyroxine Sodium [Synthroid] 200 mcg PO DAILY@0600 12/11/20 12/11/20 History Magnesium Hydroxide [Milk of 7,200 mg PO DAILY PRN 12/11/20 12/11/20 History Magnesia Concentrate] Methylphenidate HCl [Ritalin] 10 mg PO BID@0800,1700 12/11/20 12/11/20 History Morphine Sulfate ER [Ms Contin] 60 mg PO Q12HR 12/11/20 12/11/20 History Na Phos,M-B/Na Phos,Di-Ba [Fleet 133 ml RECTAL DAILY PRN 12/11/20 12/11/20 History Adult] Nystatin 100,000 Unit/ml Susp 500,000 units PO QID 12/11/20 12/11/20 History [Mycostatin Oral Susp] OLANZapine [ZyPREXA] 5 mg PO HS 12/11/20 12/11/20 History Oxybutynin Chloride [Ditropan] 5 mg PO BID@0800,1700 12/11/20 12/11/20 History Pantoprazole Sodium [Protonix] 40 mg PO DAILY@0800 12/11/20 12/11/20 History Polyethylene Glycol 3350 [Miralax] 17 gm PO BID 12/11/20 12/11/20 History Potassium Chloride [Klor-Con 10] 20 meq PO BID@0800,1700 12/11/20 12/11/20 History bisacodyL [Dulcolax] 10 mg RECTAL DAILY PRN 12/11/20 12/11/20 History dexAMETHasone [Dexamethasone] See Taper PO BID@0800,1700 12/11/20 12/11/20 History metFORMIN HCL [Glucophage] 1,000 mg PO BID@0800,1700 12/11/20 12/11/20 History ondansetron HCL [Zofran] 8 mg PO Q8H PRN 12/11/20 12/11/20 History tiZANidine [Zanaflex] 2 mg PO TID PRN 12/11/20 12/11/20 History Allergies Allergy/AdvReac Type Severity Reaction Status Date / Time acetaminophen [From [place]] Allergy Rash/Hives Verified 12/11/20 10:39 fish derived Allergy Rash/Hives Verified 12/11/20 10:39 hydrocodone [From [place]] Allergy Rash/Hives Verified 12/11/20 10:39 Penicillins Allergy Rash/Hives Verified 12/11/20 10:39 Physical Examination Osteopathic Statement: *. No significant issues noted on an osteopathic structural exam other than those noted in the History and Physical/Consult. - L Spine: dermatomal strength & reflexes bilateral Strength: hip flexion: 1/5 (Bilateral lower extremity [place] limited motion she is able to contract her muscles to a 1-2 out of 5 strength. She is not able lift her legs up off the bed at all.) Strength: hip extension: 1/5 Strength: knee flexion: 1/5 Strength: knee extension: 1/5 Strength: ankle dorsiflexion: 1/5 Strength: ankle plantar flexion: 1/5 Strength: ankle inversion: 1/5 Strength: ankle eversion: 0/5 Strength: great toe flexion: 1/5 Strength: great toe extension: 1/5 Reflexes: knee reflex: grade 0, ankle reflex: grade 0 Results - Labs Labs: Abnormal Lab Results - Last 24 Hours (Table) 12/12/20 12/12/20 12/12/20 Range/Units 09:59 09:59 11:34 WBC 2.5 L (3.8-10.6) k/uL RBC 2.60 L (3.80-5.40) m/uL Hgb 8.4 L D (11.4-16.0) gm/dL Hct 26.6 L (34.0-46.0) % MCV 102.2 H (80.0-100.0) fL RDW 23.5 H (11.5-15.5) % Lymphocytes # 0.3 L (1.0-4.8) k/uL Macrocytosis Marked A ESR 66 H (0-20) mm/hr Sodium 133 L (137-145) mmol/L Potassium 3.3 L (3.5-5.1) mmol/L Creatinine 0.34 L (0.52-1.04) mg/dL Glucose 149 H (74-99) mg/dL POC Glucose (mg/dL) 153 H (75-99) mg/dL Calcium 8.2 L (8.4-10.2) mg/dL C-Reactive Protein 18.4 H (<1.0) mg/dL 12/12/20 12/12/20 12/12/20 Range/Units 14:10 15:04 15:38 WBC (3.8-10.6) k/uL RBC (3.80-5.40) m/uL Hgb (11.4-16.0) gm/dL Hct (34.0-46.0) % MCV (80.0-100.0) fL RDW (11.5-15.5) % Lymphocytes # (1.0-4.8) k/uL Macrocytosis ESR (0-20) mm/hr Sodium (137-145) mmol/L Potassium (3.5-5.1) mmol/L Creatinine (0.52-1.04) mg/dL Glucose (74-99) mg/dL POC Glucose (mg/dL) 57 L 110 H 116 H (75-99) mg/dL Calcium (8.4-10.2) mg/dL C-Reactive Protein (<1.0) mg/dL 12/12/20 12/12/20 12/12/20 Range/Units 16:38 17:01 19:51 WBC (3.8-10.6) k/uL RBC (3.80-5.40) m/uL Hgb (11.4-16.0) gm/dL Hct (34.0-46.0) % MCV (80.0-100.0) fL RDW (11.5-15.5) % Lymphocytes # (1.0-4.8) k/uL Macrocytosis ESR (0-20) mm/hr Sodium (137-145) mmol/L Potassium (3.5-5.1) mmol/L Creatinine (0.52-1.04) mg/dL Glucose (74-99) mg/dL POC Glucose (mg/dL) 67 L 65 L 113 H (75-99) mg/dL Calcium (8.4-10.2) mg/dL C-Reactive Protein (<1.0) mg/dL 12/13/20 Range/Units 06:01 WBC (3.8-10.6) k/uL RBC (3.80-5.40) m/uL Hgb (11.4-16.0) gm/dL Hct (34.0-46.0) % MCV (80.0-100.0) fL RDW (11.5-15.5) % Lymphocytes # (1.0-4.8) k/uL Macrocytosis ESR (0-20) mm/hr Sodium (137-145) mmol/L Potassium (3.5-5.1) mmol/L Creatinine (0.52-1.04) mg/dL Glucose (74-99) mg/dL POC Glucose (mg/dL) 111 H (75-99) mg/dL Calcium (8.4-10.2) mg/dL C-Reactive Protein (<1.0) mg/dL Microbiology - Last 24 Hours (Table) 12/12/20 14:50 Wound Culture - Preliminary Buttock 12/12/20 14:50 Wound Culture - Preliminary Buttock 12/12/20 14:50 Anaerobic Culture - Preliminary Buttock 12/12/20 14:50 Anaerobic Culture - Preliminary Buttock 12/11/20 08:15 Blood Culture - Preliminary Blood No Growth after 24 hours 12/11/20 08:00 Blood Culture - Preliminary Blood No Growth after 24 hours H & H 12/11/20 12/12/20 Range/Units 08:15 09:59 Hgb 9.9 L 8.4 L D (11.4-16.0) gm/dL Hct 30.5 L 26.6 L (34.0-46.0) % Coagulation 12/11/20 Range/Units 08:15 INR 1.0 (<1.2) Result Diagrams: 12/12/20 09:59 12/12/20 09:59 - Diagnostic results CT Scan - lumbar: report reviewed, image reviewed (There is a thoracic computed tomography scan which is reviewed and shows diffuse metastasis throughout her thoracic spine. There is decompression and fusion from T8 through L1 with some cement augmentation. There is pathologic fractures at T2 T6 T10) Assessment and Plan Assessment: Breast cancer with diffuse metastasis Pathologic fractures at the thoracic spine with spinal cord injury and severe loss of function bilateral lower extremities status post lumbar decompression with fusion from T8 to L1 on 11/05/2020 Dehiscence of incision at thoracolumbar surgical site Sacral decubitus ulcer Pathologic fractures at the right humerus right femur and left femur with history of interventional rodding Status post intramedullary erlinda from 10/24/2020 at the right femur and right humerus Status post in April neurologic of left femur in October 2019 Plan: reast cancer with diffuse metastasis Pathologic fractures at the thoracic spine with spinal cord injury and severe loss of function bilateral lower extremities status post lumbar decompression with fusion from T8 to L1 on 11/05/2020 Dehiscence of incision at thoracolumbar surgical site Sacral decubitus ulcer Pathologic fractures at the right humerus right femur and left femur with history of interventional rodding Status post intramedullary erlinda from 10/24/2020 at the right femur and right humerus Status post in April neurologic of left femur in October 2019 The patient has severe extensive issues due to her metastasis. Her vital signs are stable but she has multiple surgical site issues. The thoracolumbar surgery that she went through 11/05/2020 in [place] surgical site has dehiscence at the inferior aspect. She also has a new sacral decubitus ulcer and underwent debridement yesterday. She has very poor prognosis terms of healing these areas. We'll have wound care see her for possibility of care for local wound care but I would not plan surgical intervention at her thoracic lumbar spine. She has lost significant function in her lower extremities and is quite doubtful that she could have meaningful recovery in her lower remedies and it is likely that further surgery would open the risk to even more significant complications for her. If she is considering any sort of further spinal intervention beyond local wound care with wound management team I think that she should have transfer and evaluation with a tertiary facility as this would be beyond the scope of this institution. I reviewed the evaluation from [facility], and the recognition from Dr. Bailey as well. I am in agreement with their evaluation and plans. We will go ahead and obtain new imaging of her surgical sites at her right humerus bilateral femurs and spine. We will consult wound management for evaluation for her thoracolumbar wound as well as the sacral decubitus ulcer.
[2020-12-13] MEDS: HYDROmorphone 2 MG TAB PO PRN ×3 (08:24→23:45)
[2020-12-13 08:57] LABS: African American GFR (CKD) >90 (>60 ml/min/1.73 sqM); Anion Gap 5 mmol/L; Blood Urea Nitrogen 16 mg/dL (7-17); Calcium 8.1 mg/dL (8.4-10.2); Carbon Dioxide 27 mmol/L (22-30); Chloride 104 mmol/L (98-107); Glucose 58 mg/dL (74-99); Non-African American GFR(CKD) >90 (>60 ml/min/1.73 sqM); Potassium 3.9 mmol/L (3.5-5.1); Sodium 136 mmol/L (137-145)
--- NOTE | 2020-12-13 09:11 | XR ---
EXAMINATION TYPE: XR humerus RT DATE OF EXAM: 12/13/2020 CLINICAL HISTORY: Fracture fraction and metastatic. TECHNIQUE: Two views of the right humerus are obtained. COMPARISON: None. FINDINGS: There is overall abnormal appearance to visualized osseous structures with lytic and sclero tic areas involving the ribs and inferior lateral right scapula and portions of shoulder. Diffuse inv olvement in the humerus. There is healed fracture proximal metaphyseal level right humerus. There is lateral and dorsal larger fixating plate and more medial fixating plate through supracondylar fractur e. Persistent oblique lucency is identified on frontal projection. Overlying clothing material is see n. Alignment fairly satisfactory. IMPRESSION: As above.
--- NOTE | 2020-12-13 09:26 | XR ---
EXAMINATION TYPE: XR femur bilateral DATE OF EXAM: 12/13/2020 CLINICAL HISTORY: Fracture fixation and metastasis TECHNIQUE: Two views of the bilateral femurs are obtained. COMPARISON: None FINDINGS: There is mottled appearance to the left superior and inferior pelvic rami extending toward s left acetabulum and to lesser degree on the right. Left femur shows mottled appearance subtrochanteric level with healed fracture along the medial aspec t. There is large intramedullary erlinad with femoral neck fixating screw and transverse distal fixating screw. Satisfactory alignment noted. Right femur shows 2 femoral neck fixating screws. There is femoral shaft exceeding erlinda with 2 proxima l and distal screws through mottled pathologic fracture distal femoral diaphysis, healing is present with satisfactory alignment. Overlying soft tissue is unremarkable bilaterally. IMPRESSION: As above.
--- NOTE | 2020-12-13 09:32 | XR ---
EXAMINATION TYPE: XR lumbar spine 2 or 3V DATE OF EXAM: 12/13/2020 CLINICAL HISTORY: Follow-up fracture fixation and metastasis TECHNIQUE: Frontal and lateral images of the lumbar spine are obtained. COMPARISON: None. FINDINGS: There are 5 lumbar type vertebral bodies identified. Posterior interpedicular rods and tra nsfixing L1-L3 levels. There is moderate pathologic fracture through the L2 vertebra. There is grade 1 retrolisthesis L2 on L3. Hyperdense cement material at site of surgical fixation in the L1 and L3 v ertebra. Hyperdensity in the L2 vertebra could reflect injected cement material extends into the ante rior L1-L2 disc space. Slight grade 1 anterolisthesis L4 and L5. Facet arthropathy lower lumbar spine . Cystectomy clips incidentally noted. Abnormal mottled appearance near the right sacroiliac joint co nsistent with known metastatic disease. IMPRESSION: As above.
--- NOTE | 2020-12-13 09:35 | XR ---
EXAMINATION TYPE: XR thoracic spine 2V DATE OF EXAM: 12/13/2020 CLINICAL HISTORY: Follow-up fracture fixation and metastasis TECHNIQUE: Frontal, lateral, and swimmer's view of thoracic spine are obtained. COMPARISON: CT thoracic spine one day earlier. FINDINGS: There are multiple lytic and sclerotic osseous metastatic lesions throughout the visualized thoracic spine there is sclerosis with mild to moderate compression type fracture involving the T10 vertebra. There are posterior pedicular rods and screws transfixing T8 and T9 vertebra to the inferio r T11 and T12 vertebra. Exaggerated kyphosis at this level is present. Mild height loss or mottled ap pearance to the T7 vertebra. Alignment is satisfactory on frontal view. Modeled appearance to the r ibs seen better on recent CT. Moderate to severe compression type fracture at T2 vertebra seen better on CT due to lucency and osseous overlap. Partial visualization of right internal jugular Mediport catheter. Cholecystectomy clips incidentally noted. IMPRESSION: As above.
[2020-12-13] MEDS ORDERED: VANCOMYCIN IV PER PHARMACY 1 EACH MISC MISCELLANE PRN (09:36)
[2020-12-13] MEDS: OXYBUTYNIN CHLORIDE 5 MG TAB PO SCH ×2 (10:06→21:10)
[2020-12-13] MEDS: ENOXAPARIN 40 MG/0.4 ML SYRINGE SQ SCH (10:07)
[2020-12-13] MEDS: ANASTROZOLE 1 MG TAB PO SCH (10:07)
[2020-12-13] MEDS: PANTOPRAZOLE 40 MG TABLET PO SCH (10:07)
[2020-12-13] MEDS: ALPELISIB PO SCH (10:41)
--- NOTE | 2020-12-13 11:10 | P.CONS ---
History of Present Illness - Reason for Consult Consult date: 12/13/20 wound care - History of Present Illness Is a 45-year-old patient being seen on [address] for nonhealing ulceration to the sacrum and a wound dehiscence to the midline spine. Cancer with metastases to the lung in the brain, hyperlipidemia, and hypertension. Patient developed a stage IV pressure ulcer to the sacrum. Which had underwent a surgical debridement. The ulceration measures approximately 7.5 x 2.5 x 0.2 width un dermining throughout at 1.5 cm's. There is bone exposure. Granulation seen within the wound bed and adherent slough and necrotic tissue present. At this time the dressing is absorptive Silver. Patient also has a surgical wound dehiscence to the midline spine. The area measures approximately 4 x 1 x 1.5 cm with significant amount of slough and necrotic tissue present minimal to no granulation seen. The wound edges are attached to the wound base. Upon further discussion with the patient, consideration for hospice. Due to this consideration a recommendation for advance wound dressings versus a wound VAC. At this time we will continue with advance wound dressings. She will consider of wound VAC when she speaks to her family. Review Of Systems: Constitutional: No fever, no chills, no night sweats. No weight change. No weakness, fatigue or lethargy. No daytime sleepiness. Integumentary:reports wounds, no lesions. No rash or pruritus. No unusual bruising. No change in hair or nails. Physical exam: General Appearance: Alert, cooperative, no distress, appears stated age. Skin: See HPI all other Skin color, texture, tugor normal, no rashes or lesions. Neurologic: Alert oriented x3 Assessment: 1. Stage IV pressure ulcer sacrum 2. Surgical wound dehiscence 3. Nonhealing ulceration to mid back with fat layer exposure Plan: 1. Sacrum and mid spine ulceration: Apply absorptive silver rope, saline moistened gauze, dry gauze, border foam. Change Wednesday. Continue to offload. May change the outer dressing as needed if they become saturated. Recommendation for patient to see Dr. Miguel at [facility] upon return for further wound care. After discussion with family patient may decide on a negative pressure wound VAC. 2. If patient decides to pursue the negative pressure wound VAC. Apply negative pressure wound VAC with black foam to the sacrum and spine ulceration bridging the 2. 125 mmHg continuous suction. Change Wednesday. Thank you for the consultation any questions please contact the wound care center DNP note has been reviewed and discussed with Dr. Pineda and the impression and plan of care has been directed as dictated. Past Medical History Past Medical History: Cancer, Diabetes Mellitus, Hyperlipidemia, Hypertension Additional Past Medical History / Comment(s): cancer with mets to lung and brain History of Any Multi-Drug Resistant Organisms: None Reported Past Surgical History: Unable to Obtain Additional Past Surgical History / Comment(s): october 2020 right femur FX with repair november 05 spinal surgery Past Psychological History: No Psychological Hx Reported Smoking Status: Never smoker Past Alcohol Use History: None Reported Past Drug Use History: None Reported Medications and Allergies Home Medications Medication Instructions Recorded Confirmed Type ALPRAZolam [Xanax] 0.25 mg PO DAILY PRN 12/11/20 12/11/20 History Acetaminophen Tab [Tylenol] 650 mg PO QID PRN 12/11/20 12/11/20 History Alpelisib [Piqray] 2 tab PO DAILY@1800 12/11/20 12/11/20 History Anastrozole [Arimidex] 1 mg PO HS 12/11/20 12/11/20 History Bisacodyl 10 mg PO DAILY PRN 12/11/20 12/11/20 History Collagenase [Santyl] 1 applic TOPICAL DAILY 12/11/20 12/11/20 History Enoxaparin [Lovenox] 40 mg SQ DAILY@0800 12/11/20 12/11/20 History Gabapentin [Neurontin] 100 mg PO TID@0600,1400,2200 12/11/20 12/11/20 History Glucerna Shake 120 ml PO TID@0800,1200,1700 12/11/20 12/11/20 History HYDROmorphone [Dilaudid] 2 - 4 mg PO Q6H PRN 12/11/20 12/11/20 History INSULIN ASPART (NovoLOG) [NovoLOG 20 unit SQ AC-TID 12/11/20 12/11/20 History (formulary)] INSULIN ASPART (NovoLOG) [NovoLOG See Protocol SQ AC-TID 12/11/20 12/11/20 History (formulary)] Insulin Glargine [Lantus] 50 unit SQ BID@0800,2100 12/11/20 12/11/20 History Levothyroxine Sodium [Synthroid] 200 mcg PO DAILY@0600 12/11/20 12/11/20 History Magnesium Hydroxide [Milk of 7,200 mg PO DAILY PRN 12/11/20 12/11/20 History Magnesia Concentrate] Methylphenidate HCl [Ritalin] 10 mg PO BID@0800,1700 12/11/20 12/11/20 History Morphine Sulfate ER [Ms Contin] 60 mg PO Q12HR 12/11/20 12/11/20 History Na Phos,M-B/Na Phos,Di-Ba [Fleet 133 ml RECTAL DAILY PRN 12/11/20 12/11/20 History Adult] Nystatin 100,000 Unit/ml Susp 500,000 units PO QID 12/11/20 12/11/20 History [Mycostatin Oral Susp] OLANZapine [ZyPREXA] 5 mg PO HS 12/11/20 12/11/20 History Oxybutynin Chloride [Ditropan] 5 mg PO BID@0800,1700 12/11/20 12/11/20 History Pantoprazole Sodium [Protonix] 40 mg PO DAILY@0800 12/11/20 12/11/20 History Polyethylene Glycol 3350 [Miralax] 17 gm PO BID 12/11/20 12/11/20 History Potassium Chloride [Klor-Con 10] 20 meq PO BID@0800,1700 12/11/20 12/11/20 History bisacodyL [Dulcolax] 10 mg RECTAL DAILY PRN 12/11/20 12/11/20 History dexAMETHasone [Dexamethasone] See Taper PO BID@0800,1700 12/11/20 12/11/20 History metFORMIN HCL [Glucophage] 1,000 mg PO BID@0800,1700 12/11/20 12/11/20 History ondansetron HCL [Zofran] 8 mg PO Q8H PRN 12/11/20 12/11/20 History tiZANidine [Zanaflex] 2 mg PO TID PRN 12/11/20 12/11/20 History Allergies Allergy/AdvReac Type Severity Reaction Status Date / Time acetaminophen [From [place]] Allergy Rash/Hives Verified 12/11/20 10:39 fish derived Allergy Rash/Hives Verified 12/11/20 10:39 hydrocodone [From [place]] Allergy Rash/Hives Verified 12/11/20 10:39 Penicillins Allergy Rash/Hives Verified 12/11/20 10:39 Physical Exam Vitals: Vital Signs Temp Pulse Resp BP Pulse Ox 12/13/20 10:00 100.8 F H 125 H 18 92/61 96 12/13/20 04:00 98.8 F 116 H 18 109/74 95 12/13/20 00:00 98.9 F 116 H 18 117/79 95 12/12/20 20:00 98.5 F 110 H 18 117/81 99 12/12/20 18:37 137/91 12/12/20 17:55 111 H 18 114/73 96 12/12/20 17:01 99.4 F 114 H 16 117/78 95 12/12/20 16:00 100 14 119/74 96 12/12/20 15:45 97 14 122/77 100 12/12/20 15:32 97.0 F L 97 16 107/67 99 12/12/20 14:04 97.4 F L 100 16 106/62 93 L 12/12/20 12:18 100.3 F H 96 16 104/67 97 Intake and Output 12/12/20 12/13/20 12/13/20 22:59 06:59 14:59 Intake Total 120 180 Output Total 25 400 Balance 95 -400 180 Intake: IV 0 Oral 120 180 Output: Urine 400 Estimated Blood Loss 25 Other: Voiding Method External Catheter External Catheter # Voids 1 3 Weight 77.5 kg Results CBC & Chem 7: 12/12/20 09:59 12/13/20 07:52 Labs: Abnormal Lab Results - Last 24 Hours (Table) 12/12/20 12/12/20 12/12/20 Range/Units 09:59 09:59 11:34 WBC 2.5 L (3.8-10.6) k/uL RBC 2.60 L (3.80-5.40) m/uL Hgb 8.4 L D (11.4-16.0) gm/dL Hct 26.6 L (34.0-46.0) % MCV 102.2 H (80.0-100.0) fL RDW 23.5 H (11.5-15.5) % Lymphocytes # 0.3 L (1.0-4.8) k/uL Macrocytosis Marked A ESR 66 H (0-20) mm/hr Sodium 133 L (137-145) mmol/L Potassium 3.3 L (3.5-5.1) mmol/L Creatinine 0.34 L (0.52-1.04) mg/dL Glucose 149 H (74-99) mg/dL POC Glucose (mg/dL) 153 H (75-99) mg/dL Calcium 8.2 L (8.4-10.2) mg/dL C-Reactive Protein 18.4 H (<1.0) mg/dL Vancomycin Trough ug/mL 12/12/20 12/12/20 12/12/20 Range/Units 14:10 15:04 15:38 WBC (3.8-10.6) k/uL RBC (3.80-5.40) m/uL Hgb (11.4-16.0) gm/dL Hct (34.0-46.0) % MCV (80.0-100.0) fL RDW (11.5-15.5) % Lymphocytes # (1.0-4.8) k/uL Macrocytosis ESR (0-20) mm/hr Sodium (137-145) mmol/L Potassium (3.5-5.1) mmol/L Creatinine (0.52-1.04) mg/dL Glucose (74-99) mg/dL POC Glucose (mg/dL) 57 L 110 H 116 H (75-99) mg/dL Calcium (8.4-10.2) mg/dL C-Reactive Protein (<1.0) mg/dL Vancomycin Trough ug/mL 12/12/20 12/12/20 12/12/20 Range/Units 16:38 17:01 19:51 WBC (3.8-10.6) k/uL RBC (3.80-5.40) m/uL Hgb (11.4-16.0) gm/dL Hct (34.0-46.0) % MCV (80.0-100.0) fL RDW (11.5-15.5) % Lymphocytes # (1.0-4.8) k/uL Macrocytosis ESR (0-20) mm/hr Sodium (137-145) mmol/L Potassium (3.5-5.1) mmol/L Creatinine (0.52-1.04) mg/dL Glucose (74-99) mg/dL POC Glucose (mg/dL) 67 L 65 L 113 H (75-99) mg/dL Calcium (8.4-10.2) mg/dL C-Reactive Protein (<1.0) mg/dL Vancomycin Trough ug/mL 12/13/20 12/13/20 12/13/20 Range/Units 06:01 07:52 07:52 WBC (3.8-10.6) k/uL RBC (3.80-5.40) m/uL Hgb (11.4-16.0) gm/dL Hct (34.0-46.0) % MCV (80.0-100.0) fL RDW (11.5-15.5) % Lymphocytes # (1.0-4.8) k/uL Macrocytosis ESR (0-20) mm/hr Sodium 136 L (137-145) mmol/L Potassium (3.5-5.1) mmol/L Creatinine 0.40 L (0.52-1.04) mg/dL Glucose 58 L (74-99) mg/dL POC Glucose (mg/dL) 111 H (75-99) mg/dL Calcium 8.1 L (8.4-10.2) mg/dL C-Reactive Protein (<1.0) mg/dL Vancomycin Trough 43.3 H* ug/mL Microbiology - Last 24 Hours (Table) 12/11/20 08:00 Blood Culture - Preliminary Blood No Growth after 48 hours 12/11/20 08:15 Blood Culture - Preliminary Blood No Growth after 48 hours 12/12/20 14:50 Gram Stain - Preliminary Buttock Wound Culture - Preliminary 12/12/20 14:50 Gram Stain - Preliminary Buttock Wound Culture - Preliminary 12/12/20 14:50 Anaerobic Culture - Preliminary Buttock 12/12/20 14:50 Anaerobic Culture - Preliminary Buttock Assessment and Plan (1) Pressure ulcer of sacral region, stage 4 Current Visit: Yes Status: Acute Code(s): L89.154 - PRESSURE ULCER OF SACRAL REGION, STAGE 4 SNOMED Code(s): 613093071 (2) Wound dehiscence Current Visit: Yes Status: Acute Code(s): T81.30XA - DISRUPTION OF WOUND, UNSPECIFIED, INITIAL ENCOUNTER SNOMED Code(s): 774891008 (3) Non-pressure chronic ulcer of back with fat layer exposed Current Visit: Yes Status: Acute Code(s): L98.422 - NON-PRESSURE CHRONIC ULCER OF BACK WITH FAT LAYER EXPOSED SNOMED Code(s): 55821085
[2020-12-13] MEDS: MORPHINE SULFATE ER 60 MG TABLET PO SCH ×2 (11:27→21:09)
[2020-12-13 11:33] LABS: Glucose,Whole Blood 111 mg/dL (75-99)
--- NOTE | 2020-12-13 12:54 | P.PN ---
Subjective Progress Note Date: 12/13/20 The patient is resting comfortably. Pain is controlled Objective - Vital Signs Vital signs: Vital Signs Temp 99.5 F 12/13/20 11:26 Pulse 127 H 12/13/20 11:26 Resp 18 12/13/20 11:26 BP 107/70 12/13/20 11:26 Pulse Ox 95 12/13/20 11:26 Intake & Output 12/12/20 12/13/20 12/13/20 18:59 06:59 18:59 Intake Total 520 180 Output Total 25 400 Balance 495 -400 180 Weight 77.5 kg Intake: IV 400 Oral 120 180 Output: Urine 400 Estimated Blood Loss 25 Other: Voiding Method External Catheter External Catheter External Catheter # Voids 3 # Bowel Movements 1 - Constitutional General appearance: Present: cooperative, no acute distress - Labs CBC & Chem 7: 12/12/20 09:59 12/13/20 07:52 Labs: Abnormal Lab Results - Last 24 Hours (Table) 12/12/20 12/12/20 12/12/20 Range/Units 09:59 14:10 15:04 Hgb 8.4 L D (11.4-16.0) gm/dL MCV 102.2 H (80.0-100.0) fL Sodium (137-145) mmol/L Creatinine (0.52-1.04) mg/dL Glucose (74-99) mg/dL POC Glucose (mg/dL) 57 L 110 H (75-99) mg/dL Calcium (8.4-10.2) mg/dL Vancomycin Trough ug/mL 12/12/20 12/12/20 12/12/20 Range/Units 15:38 16:38 17:01 Hgb (11.4-16.0) gm/dL MCV (80.0-100.0) fL Sodium (137-145) mmol/L Creatinine (0.52-1.04) mg/dL Glucose (74-99) mg/dL POC Glucose (mg/dL) 116 H 67 L 65 L (75-99) mg/dL Calcium (8.4-10.2) mg/dL Vancomycin Trough ug/mL 12/12/20 12/13/20 12/13/20 Range/Units 19:51 06:01 07:52 Hgb (11.4-16.0) gm/dL MCV (80.0-100.0) fL Sodium (137-145) mmol/L Creatinine (0.52-1.04) mg/dL Glucose (74-99) mg/dL POC Glucose (mg/dL) 113 H 111 H (75-99) mg/dL Calcium (8.4-10.2) mg/dL Vancomycin Trough 43.3 H* ug/mL 12/13/20 12/13/20 Range/Units 07:52 11:31 Hgb (11.4-16.0) gm/dL MCV (80.0-100.0) fL Sodium 136 L (137-145) mmol/L Creatinine 0.40 L (0.52-1.04) mg/dL Glucose 58 L (74-99) mg/dL POC Glucose (mg/dL) 111 H (75-99) mg/dL Calcium 8.1 L (8.4-10.2) mg/dL Vancomycin Trough ug/mL Microbiology - Last 24 Hours (Table) 12/11/20 08:00 Blood Culture - Preliminary Blood No Growth after 48 hours 12/11/20 08:15 Blood Culture - Preliminary Blood No Growth after 48 hours 12/12/20 14:50 Gram Stain - Preliminary Buttock Wound Culture - Preliminary 12/12/20 14:50 Gram Stain - Preliminary Buttock Wound Culture - Preliminary 12/12/20 14:50 Anaerobic Culture - Preliminary Buttock 12/12/20 14:50 Anaerobic Culture - Preliminary Buttock Assessment and Plan (1) Metastatic breast cancer Current Visit: Yes Status: Acute Code(s): C50.919 - MALIGNANT NEOPLASM OF UNSP SITE OF UNSPECIFIED FEMALE BREAST SNOMED Code(s): 033406299 (2) Wound dehiscence Current Visit: Yes Status: Acute Code(s): T81.30XA - DISRUPTION OF WOUND, UNSPECIFIED, INITIAL ENCOUNTER SNOMED Code(s): 489576390 Plan: I discussed the intraoperative findings of the sacral the thoracic with the patient and her mother. The infected necrotic tissue in the sacrum has been removed. Cultures were obtained. On her back unfortunately, there is exposed bone with palpable bony fragments. With her having been on chemotherapy recently and having extensive osseous metastatic disease, these wounds unfortunately are unlikely to heal. She wouldn't be a candidate for an extensive flap closure of her back wound. They're willing to talk to the palliative care nurse versus returning to [facility] after discharge. Questions were encouraged and answered.
--- NOTE | 2020-12-13 14:11 | P.PN ---
Subjective Progress Note Date: 12/13/20 Chief Complaint: Disorientation, fever, large decubitus ulcer This is a 45-year-old pleasant lady, resides at [facility] under the care of Dr. Tran, known history of breast cancer with metastatic, diagnosed in 2014, upon diagnosis sure that metastatic lesions to the bone. She did not require mastectomy at that time, however she is on chemotherapy. Oncology would be at [facility] She had decubitus ulcer diagnosed 3 weeks ago, after decompression surgery involving lumbar spine, done at [place] in [place], 3 weeks ago. She went to [facility], for which she is therefore rehabilitation. Patient requires a Marko lift, cannot ambulate and cannot move the leg spontaneously. She was noted to have fever this morning, and when she woke up she was disoriented, she was subsequently transferred to [facility]. She has a decubitus ulcer with foul-smelling large ulceration, this is being treated with 3+, no oral antibiotic, it's worse for the past 2 weeks, now with us foul-smelling odor, measuring 5 cm x 2 cm stage III. In the emergency room she was given information of the culture that was done December 08, growing pseudomonas aeruginosa, and Enterococcus faecalis, she was given cepefijme, pseudomonas is pansensitive, enterococcus is resistant to erythromycin, we'll going to start on levofloxacin IV and IV flagyn empiric, no drug ALLERGIES noted with this antibiotic. Patient has penicillin ALLERGY, with difficulty breathing and throat swelling consult with Dr. Harris, Dr. Menjivar for debridement of the sacral wound, and Dr. Hernandez for possible discitis, osteomyelitis. Patient has fever, delirium, with encephalopathy like picture, h owever this is transient, we've discussed this with emergency room physician, before her acceptance here, that I would prefer her to be sent to a tertiary facility that has done her spine decompression, as there is drainage from the wound in the surgical spine area however the family declined this option, as it is too far in [place]. Also at her primary care physician Deepti Bhandari, Dr. Tran requested that the patient stay locally, as this is uncomfortable for her, patient did not want any palliative treatments yet, however she is DO NOT RESUSCITATE, no CPR no ventilation She is taking morphine 60 mg twice a day, along with Dilaudid 2 mg every 4 hours, at the [facility] prior to admission. She is on Lantus for diabetes NovoLog premix,, gabapentin, Zyprexa, she is on piqray and Arimidex for metastatic breast cancer dexamethasone 2-4 mg as directed 12/12 patient is done for excisional debridement by Dr. Roberson today, CT thoracic spine currently pending, Recommendations to follow from Dr. Menjivar local wound care, might need wound VAC,, as well as orthopedic spine imaging completed.. 12 13: Patient is doing okay with pain management, she had excisional debridement yesterday, has no nausea vomiting, family is at bedside, they have requested that she be discharged to hospice home, secondary to expenses incurred at [facility]. Patient has no neuropathy pain this time, she still appears for pain management, no new recommendations from orthopedic spine, however she has a complicated decubitus ulcer, suspicious of Perfecto also. She has an external Cadena catheter, with for which we'll going to replace this with a chronic indwelling Cadena catheter, upon discharge secondary to a large decubitus sacral ulcer and mattress in place, and frequent turning by nursing staff Review of Systems Constitutional: Reports as per HPI, Reports chills, Reports fatigue, Reports fever, Reports lethargy Ears, nose, mouth and throat: Reports as per HPI, Denies hoarseness, Denies nasal discharge, Denies neck lump, Denies odynophagia, Denies vertigo Cardiovascular: Reports as per HPI, Reports decreased exercise tolerance, Reports dyspnea on exertion, Denies shortness of breath Respiratory: Reports as per HPI, Denies cough with sputum, Denies pain on inspiration, Denies respiratory infections, Denies sleep apnea Gastrointestinal: Reports as per HPI Genitourinary: Reports as per HPI Menstruation: Reports as per HPI Musculoskeletal: Reports as per HPI, Reports myalgias, Denies gait dysfunction, Denies limitation of motion Integumentary: Reports as per HPI, Reports color changes, Reports wounds (Pressure ulcer acute coccyx sacrum) Neurological: Reports as per HPI, Reports balance difficulties, Reports gait dysfunction, Reports lack of coordination Psychiatric: Reports as per HPI, Reports disorientation, Reports insomnia Endocrine: Reports as per HPI, Reports weight change, Denies nocturia, Denies palpitations Hematologic/Lymphatic: Reports as per HPI, Reports easy bleeding Allergic/Immunologic: Reports persistent infections Objective - Vital Signs Vital signs: Vital Signs Temp 99.5 F 12/13/20 11:26 Pulse 127 H 12/13/20 11:26 Resp 18 12/13/20 11:26 BP 107/70 12/13/20 11:26 Pulse Ox 95 12/13/20 11:26 Intake & Output 12/12/20 12/13/20 12/13/20 18:59 06:59 18:59 Intake Total 520 180 Output Total 25 400 Balance 495 -400 180 Weight 77.5 kg 77.5 kg Intake: IV 400 Oral 120 180 Output: Urine 400 Estimated Blood Loss 25 Other: Voiding Method External Catheter External Catheter External Catheter # Voids 3 # Bowel Movements 1 - Constitutional General appearance: Present: average body habitus, cooperative, no acute distress - EENT Eyes: Present: EOMI ENT: Present: NA/AT, normal oropharynx - Neck Neck: Present: normal ROM - Respiratory Respiratory: bilateral: CTA, negative: diminished, dullness - Cardiovascular Heart sounds: normal: S1, S2 - Gastrointestinal General gastrointestinal: Present: normal bowel sounds - Neurologic Neurologic: Present: CNII-XII intact - Musculoskeletal Musculoskeletal: Present: generalized weakness, strength equal bilaterally - Labs CBC & Chem 7: 12/12/20 09:59 12/13/20 07:52 Labs: Abnormal Lab Results - Last 24 Hours (Table) 12/12/20 12/12/20 12/12/20 Range/Units 14:10 15:04 15:38 Sodium (137-145) mmol/L Creatinine (0.52-1.04) mg/dL Glucose (74-99) mg/dL POC Glucose (mg/dL) 57 L 110 H 116 H (75-99) mg/dL Calcium (8.4-10.2) mg/dL Vancomycin Trough ug/mL 12/12/20 12/12/20 12/12/20 Range/Units 16:38 17:01 19:51 Sodium (137-145) mmol/L Creatinine (0.52-1.04) mg/dL Glucose (74-99) mg/dL POC Glucose (mg/dL) 67 L 65 L 113 H (75-99) mg/dL Calcium (8.4-10.2) mg/dL Vancomycin Trough ug/mL 12/13/20 12/13/20 12/13/20 Range/Units 06:01 07:52 07:52 Sodium 136 L (137-145) mmol/L Creatinine 0.40 L (0.52-1.04) mg/dL Glucose 58 L (74-99) mg/dL POC Glucose (mg/dL) 111 H (75-99) mg/dL Calcium 8.1 L (8.4-10.2) mg/dL Vancomycin Trough 43.3 H* ug/mL 12/13/20 Range/Units 11:31 Sodium (137-145) mmol/L Creatinine (0.52-1.04) mg/dL Glucose (74-99) mg/dL POC Glucose (mg/dL) 111 H (75-99) mg/dL Calcium (8.4-10.2) mg/dL Vancomycin Trough ug/mL Microbiology - Last 24 Hours (Table) 12/11/20 08:00 Blood Culture - Preliminary Blood No Growth after 48 hours 12/11/20 08:15 Blood Culture - Preliminary Blood No Growth after 48 hours 12/12/20 14:50 Gram Stain - Preliminary Buttock Wound Culture - Preliminary 12/12/20 14:50 Gram Stain - Preliminary Buttock Wound Culture - Preliminary 12/12/20 14:50 Anaerobic Culture - Preliminary Buttock 12/12/20 14:50 Anaerobic Culture - Preliminary Buttock Assessment and Plan Plan: 1. Encephalopathy, secondary to sepsis, primary source could be the pseudomonas and enterococcus as noted from sacral decub foul-smelling lesion, however there is also an noticeable drainage from the spinal wound for which this going to be looking to by Dr. Hernandez, and Dr. Otto Harris which is sensitive to the microbes isolated, and IV Flagyl to be started, patient has penicillin ALLERGY, cefepime given 1 dose in the ER, discussed with Dr. Harris, start on vancomycin and aztreonam, excisional debridement performed, 11/1919 Dr. Menjivar 2. large sacral pressure ulcer suspect perfecto ulcer, insert cadena cath for now instead of external cath, awaiot cultures 2. Breast cancer with metastases to the brain, and spinal column, patient is on piqray and dexamethasone, and Arimidex consult with Dr. Shepard underlying brain edema suspected well on dexamethasone, 3. Spinal decompression less than 3 weeks ago, secondary to pathological fracture suspected, no notes for review, consult with Dr. Hernandez, there is support for drainage in the surgical wound from this area, we'll going to obtain wound cultures also from the surgical wound unable to 4. Chronic pain, secondary to malignancy, skeletal metastases noted, on morphine 60 mg twice a day, and oral Dilaudid, 2 mg every 4 hours, morphine ER would be continued, and IV Dilaudid on a when necessary basis. 4 mg every 6 5. Diabetes mellitus type 2, on metformin, check A1c patient is on NovoLog 20 units 3 times a day, Levemir 50 units twice a day check 6. Hypothyroid on levothyroid 200 mcg daily 7. Chronic fatigue, on dexamethasone, for brain metastases possibly swelling, also on methylphenidate, 8. DVT prophylaxis with Lovenox 9. GI prophylaxis with IV Protonix CODE STATUS, DO NOT RESUSCITATE, patient does not want palliative treatment . consult for home hospice per request
--- NOTE | 2020-12-13 16:29 | PN ---
PROGRESS NOTE DATE OF SERVICE: 12/13/2020 REASON FOR FOLLOWUP: Thoracic surgical spine infection. INTERVAL HISTORY: The patient did have a low-grade fever of 100.8 this morning. The patient is feeling better, breathing comfortably. Denies having any chest pain, shortness of breath or cough. No pain to the upper back area. No vomiting or diarrhea. PHYSICAL EXAMINATION: Blood pressure 107/70 with a pulse of 127, temperature 99.5, T-max 100.8. She is 95% on room air. GENERAL DESCRIPTION: General description is a middle-aged female lying in bed in no distress. RESPIRATORY SYSTEM: Unlabored breathing. Decreased intensity of breath sounds. No wheeze. HEART: S1, S2. Regular rate and rhythm. ABDOMEN: Soft. No tenderness. LABS: BUN of 16, creatinine 0.40. Vancomycin trough is 43.3. DIAGNOSTIC IMPRESSION AND PLAN: Patient with a thoracic spine surgical site infection. Outpatient culture was with Enterococcus and Pseudomonas in this patient with a PENICILLIN ALLERGY. Patient is covered with Azactam and vancomycin. Vancomycin trough is high will need to be cut back to keep the trough around 15. Kidney function will be monitored closely. Hospice may be a better option in view of the significant metastatic disease seen on the CT. Monitor clinical course closely. MMODL / IJN: [id number] /
[2020-12-13 16:48] LABS: Glucose,Whole Blood 122 mg/dL (75-99)
[2020-12-13] MEDS: GABAPENTIN 100 MG CAP PO SCH ×2 (17:16→21:10)
[2020-12-13 20:36] LABS: Glucose,Whole Blood 149 mg/dL (75-99)
[2020-12-13] MEDS: OLANZapine 5 MG TAB PO SCH (21:10)
[2020-12-14] MEDS: SODIUM CHLORIDE 0.9% 1,000 ML IV SCH (02:30)
[2020-12-14] MEDS ORDERED: DEXTROSE 50% SYRINGE 50 ML IVP ONE ×3 (06:06→15:59)
[2020-12-14 06:08] LABS: Glucose,Whole Blood 42 mg/dL (75-99)
[2020-12-14 06:17] LABS: Glucose,Whole Blood 223 mg/dL (75-99)
[2020-12-14] MEDS: LEVOTHYROXINE 100 MCG TAB PO SCH (06:20)
[2020-12-14] MEDS: AZTREONAM 2 GM in SODIUM CHLORIDE 0.9% 100 ML IVPB SCH ×2 (06:20→13:08)
[2020-12-14] MEDS: INSULIN DETEMIR (LEVEMIR) 100 UNIT/ML SYR SQ SCH ×2 (08:44→11:43)
[2020-12-14] MEDS: ALPELISIB PO SCH (08:44)
[2020-12-14] MEDS: PANTOPRAZOLE 40 MG TABLET PO SCH (09:00)
[2020-12-14] MEDS: ENOXAPARIN 40 MG/0.4 ML SYRINGE SQ SCH (09:00)
[2020-12-14] MEDS: MORPHINE SULFATE ER 60 MG TABLET PO SCH ×2 (09:00→21:06)
[2020-12-14] MEDS: OXYBUTYNIN CHLORIDE 5 MG TAB PO SCH ×2 (09:00→21:06)
[2020-12-14] MEDS: GABAPENTIN 100 MG CAP PO SCH ×3 (09:00→21:06)
[2020-12-14] MEDS: ONDANSETRON 4 MG TAB PO SCH ×3 (09:00→22:57)
[2020-12-14] MEDS: ANASTROZOLE 1 MG TAB PO SCH (09:00)
--- NOTE | 2020-12-14 09:51 | P.PN ---
Progress Note - Text Progress Note Date: 12/14/20 Patient is seen and examined. She says she is comfortable. She is somewhat medicated and arousable and pleasant but she falls asleep quite easily even during conversation. She will follow some commands. At her lower extremities and neurologic status is not changed. She has some 1 out of 5 type strength in her quads and lower legs. Her wounds at her back and sacrum are covered and dressed and clean. Metastatic breast cancer Status post multiple orthopedic and spine surgeries including right femur erlinda on 10/24/2020 and right humerus open reduction internal fixation on 10/24/2020 and thoracolumbar fusion 11/05/2020 History of left femur erlinda in October 2019 Sacral decubitus ulcer with necrotic tissue Dehiscence of lumbar spine wound The patient's internal fixation appears to be stable. I do not see any obvious change position on her new films of her right humerus or bilateral femurs or her thoracic or lumbar spine. The hardware appears to be intact and appropriate. There is obvious changes with diffuse metastasis throughout her skeletal system. She has dehiscence at her lumbar spine wound but I do not see a good role for further surgical intervention in terms of changing hardware. At the time of her sacral decubitus ulcer debridement there is bony tissue palpable but she is not a candidate for any sort of flap coverage and it is doubtful that wound revision would offer her great benefit surgically. Wound care specialty has seen the patient and I greatly appreciate their input and recommendations. I think that local wound care as per the vendor specialist would be of best functional benefit for her. She'll likely need prophylactic antibiotics as well as local wound care. I do not have any acute surgical plans for her spine at this point. She should continue with her palliative care.
--- NOTE | 2020-12-14 10:06 | XR ---
EXAMINATION TYPE: XR chest 1V portable DATE OF EXAM: 12/14/2020 COMPARISON: Chest radiograph 12/11/2020 HISTORY: Rule out fluid overload. TECHNIQUE: Single frontal view of the chest is obtained. FINDINGS: The cardiomediastinal silhouette and pulmonary vasculature are within normal limits. Low lung volumes with bilateral airspace opacities. Diffuse heterogeneity of the osseous structures. Spinal fusion hardware. Right chest wall medical infusion port with a loop in the mid catheter and th e catheter tip over the SVC. IMPRESSION: Low lung volumes with bilateral airspace opacities similar to prior allowing for differe nce in technique.
[2020-12-14 11:44] LABS: Glucose,Whole Blood 538 mg/dL (75-99)
[2020-12-14 11:44] LABS: Glucose,Whole Blood 83 mg/dL (75-99)
--- NOTE | 2020-12-14 14:48 | P.DS ---
Providers Date of admission: 12/11/20 12:48 Attending physician: Shruthi Doty Consults: 12/11/20 12:35 Consult Physician Routine Consulting Provider: Constantine Harris Consult Reason/Comments: decub ulcer osteo Do you want consulting provider notified?: Yes 12/11/20 12:38 Consult Physician Routine Consulting Provider: Judith Menjivar Consult Reason/Comments: decub debridement Do you want consulting provider notified?: Yes 12/11/20 15:33 Consult Physician Routine Consulting Provider: Matthew Hernandez Consult Reason/Comments: osteomyelitis poss with purulent discharge form spine surgery Do you want consulting provider notified?: Yes 12/11/20 15:36 Consult Physician Routine Consulting Provider: Antonio Shepard Consult Reason/Comments: breast ca brain mets Do you want consulting provider notified?: Yes Primary care physician: [facility] Course: This is a 45-year-old pleasant lady, resides at [facility] under the care of Dr. Tran, known history of breast cancer with metastatic, diagnosed in 2014, upon diagnosis sure that metastatic lesions to the bone. She did not require mastectomy at that time, however she is on chemotherapy. Oncology would be at [facility] She had decubitus ulcer diagnosed 3 weeks ago, after decompression surgery involving lumbar spine, done at [facility] in [place], 3 weeks ago. She went to [facility], for which she is therefore rehabilitation. Patient requires a Marko lift, cannot ambulate and cannot move the leg spontaneously. She was noted to have fever this morning, and when she woke up she was disoriented, she was subsequently transferred to [facility]. She has a decubitus ulcer with foul-smelling large ulceration, this is being treated with 3+, no oral antibiotic, it's worse for the past 2 weeks, now with us foul-smelling odor, measuring 5 cm x 2 cm stage III. In the emergency room she was given information of the culture that was done December 08, growing pseudomonas aeruginosa, and Enterococcus faecalis, she was given cepefijme, pseudomonas is pansensitive, enterococcus is resistant to erythromycin, we'll going to start on levofloxacin IV and IV flagyn empiric, no drug ALLERGIES noted with this antibiotic. Patient has penicillin ALLERGY, with difficulty breathing and throat swelling consult with Dr. Harris, Dr. Menjivar for debridement of the sacral wound, and Dr. Hernandez for possible discitis, osteomye litis. Patient has fever, delirium, with encephalopathy like picture, however this is transient, we've discussed this with emergency room physician, before her acceptance here, that I would prefer her to be sent to a tertiary facility that has done her spine decompression, as there is drainage from the wound in the surgical spine area however the family declined this option, as it is too far in [place]. Also at her primary care physician Deepti Bhandari, Dr. Tran requested that the patient stay locally, as this is uncomfortable for her, patient did not want any palliative treatments yet, however she is DO NOT RESUSCITATE, no CPR no ventilation She is taking morphine 60 mg twice a day, along with Dilaudid 2 mg every 4 hours, at the correction prior to admission. She is on Lantus for diabetes NovoLog premix,, gabapentin, Zyprexa, she is on piqray and Arimidex for metastatic breast cancer dexamethasone 2-4 mg as directed 12/12 patient is done for excisional debridement by Dr. Roberson today, CT thoracic spine currently pending, Recommendations to follow from Dr. Menjivar local wound care, might need wound VAC,, as well as orthopedic spine imaging completed.. 8 20: Patient is doing okay with pain management, she had excisional debridement yesterday, has no nausea vomiting, family is at bedside, they have requested that she be discharged to hospice home, secondary to expenses incurred at [facility]. Patient has no neuropathy pain this time, she still appears for pain management, no new recommendations from orthopedic spine, however she has a complicated decubitus ulcer, suspicious of Perfecto also. She has an external Cadena catheter, with for which we'll going to replace this with a chronic indwelling Cadena catheter, upon discharge secondary to a large decubitus sacral ulcer and mattress in place, and frequent turning by nursing staff Patient assessed at bedside. Mother and sister at bedside. Had detailed discussion with the family about hospice care since patient has a poor prognosis. Family is agreeable to hospice home and switch patient from palliative care to hospice. Family also updated upon discontinuation of antibiotics which they are agreeable to. Orthopedic surgeon and Gen. surgery do not recommend surgical intervention for dehiscence of her lumbar spine wound. Patient underwent debridement of the sacral decubitus ulcer but she is not a c andidate for any flap coverage. Hospice care consult placed. Review of Systems Patient in deep sleep unable to review of the system Assessment and plan 1. Encephalopathy, secondary to sepsis, primary source could be the pseudomonas and enterococcus as noted from sacral decub foul-smelling lesion, however there is also an noticeable drainage from the spinal wound for which this going to be looking to by Dr. Hernandez, and Dr. Otto Harris which is sensitive to the microbes isolated, and IV Flagyl to be started, patient has penicillin ALLERGY, cefepime given 1 dose in the ER, discussed with Dr. Harris, start on vancomycin and aztreonam, switch to hospice care 2. large sacral pressure ulcer suspect perfecto ulcer, insert cadena cath for now instead of external cath, awaiot cultures,excisional debridement performed, 11/1919 Dr. Menjivar stopped comfort care 3. Breast cancer with metastases to the brain, and spinal column, patient is on piqray and dexamethasone, and Arimidex consult with Dr. Shepard underlying brain edema suspected well on dexamethasone, discontinued Arimidex and Piqray, on comfort care 3. Thoracolumbar spine fusion and Spinal decompression on 11/05, secondary to pathological fracture suspected, no notes for review, consult with Dr. Hernandez, there is support for drainage in the surgical wound from this area not a surgical candidate for any flap surgery. Appropriate follow-up hospice care 4. Chronic pain, secondary to malignancy, skeletal metastases noted, on morphine 60 mg twice a day, and oral Dilaudid, 2 mg every 4 hours, morphine ER would be continued, and IV Dilaudid on a when necessary basis. 4 mg every 6. Morphine IV every 2 he and Ativan added for comfort care 5. Diabetes mellitus type 2, on metformin, and comfort measures check 6. Hypothyroid on comfort measures 7. Chronic fatigue, on dexamethasone, for brain metastases possibly swelling, also on methylphenidate, 8. DVT prophylaxis on hospice comfort care 9. GI prophylaxis comfort care CODE STATUS, DO NOT RESUSCITATE, hospice consult placed plan for hospice home Patient Condition at Discharge: Serious Plan - Discharge Summary Discharge Rx Participant: No New Discharge Prescriptions: No Action ALPRAZolam [Xanax] 0.25 mg PO DAILY PRN PRN Reason: Anxiety Alpelisib [Piqray] 2 tab PO DAILY@1800 ondansetron HCL [Zofran] 8 mg PO Q8H PRN PRN Reason: Nausea Oxybutynin Chloride [Ditropan] 5 mg PO BID@0800,1700 Nystatin 100,000 Unit/ml Susp [Mycostatin Oral Susp] 500,000 units PO QID Morphine Sulfate ER [Ms Contin] 60 mg PO Q12HR INSULIN ASPART (NovoLOG) [NovoLOG (formulary)] 20 unit SQ AC-TID Levothyroxine Sodium [Synthroid] 200 mcg PO DAILY@0600 HYDROmorphone [Dilaudid] 2 - 4 mg PO Q6H PRN PRN Reason: Pain Gabapentin [Neurontin] 100 mg PO TID@0600,1400,2200 bisacodyL [Dulcolax] 10 mg RECTAL DAILY PRN PRN Reason: Constipation Bisacodyl 10 mg PO DAILY PRN PRN Reason: Constipation Anastrozole [Arimidex] 1 mg PO HS Acetaminophen Tab [Tylenol] 650 mg PO QID PRN PRN Reason: Pain Or Fever > 100.5 dexAMETHasone See Taper PO BID@0800,1700 tiZANidine [Zanaflex] 2 mg PO TID PRN PRN Reason: Muscle Spasm Collagenase [Santyl] 1 applic TOPICAL DAILY Potassium Chloride [Klor-Con 10] 20 meq PO BID@0800,1700 Pantoprazole Sodium [Protonix] 40 mg PO DAILY@0800 OLANZapine [ZyPREXA] 5 mg PO HS Polyethylene Glycol 3350 [Miralax] 17 gm PO BID Methylphenidate HCl [Ritalin] 10 mg PO BID@0800,1700 Magnesium Hydroxide [Milk of Magnesia Concentrate] 7,200 mg PO DAILY PRN PRN Reason: Constipation metFORMIN HCL [Glucophage] 1,000 mg PO BID@0800,1700 Insulin Glargine [Lantus] 50 unit SQ BID@0800,2100 INSULIN ASPART (NovoLOG) [NovoLOG (formulary)] See Protocol SQ AC-TID Na Phos,M-B/Na Phos,Di-Ba [Fleet Adult] 133 ml RECTAL DAILY PRN PRN Reason: Constipation Enoxaparin [Lovenox] 40 mg SQ DAILY@0800 Glucerna Shake 120 ml PO TID@0800,1200,1700 Discharge Medication List ALPRAZolam [Xanax] 0.25 mg PO DAILY PRN 12/11/20 [History] Acetaminophen Tab [Tylenol] 650 mg PO QID PRN 12/11/20 [History] Alpelisib [Piqray] 2 tab PO DAILY@1800 12/11/20 [History] Anastrozole [Arimidex] 1 mg PO HS 12/11/20 [History] Bisacodyl 10 mg PO DAILY PRN 12/11/20 [History] Collagenase [Santyl] 1 applic TOPICAL DAILY 12/11/20 [History] Enoxaparin [Lovenox] 40 mg SQ DAILY@0800 12/11/20 [History] Gabapentin [Neurontin] 100 mg PO TID@0600,1400,2200 12/11/20 [History] Glucerna Shake 120 ml PO TID@0800,1200,1700 12/11/20 [History] HYDROmorphone [Dilaudid] 2 - 4 mg PO Q6H PRN 12/11/20 [History] INSULIN ASPART (NovoLOG) [NovoLOG (formulary)] 20 unit SQ AC-TID 12/11/20 [History] INSULIN ASPART (NovoLOG) [NovoLOG (formulary)] See Protocol SQ AC-TID 12/11/20 [History] Insulin Glargine [Lantus] 50 unit SQ BID@0800,2100 12/11/20 [History] Levothyroxine Sodium [Synthroid] 200 mcg PO DAILY@0600 12/11/20 [History] Magnesium Hydroxide [Milk of Magnesia Concentrate] 7,200 mg PO DAILY PRN 12/11/20 [History] Methylphenidate HCl [Ritalin] 10 mg PO BID@0800,1700 12/11/20 [History] Morphine Sulfate ER [Ms Contin] 60 mg PO Q12HR 12/11/20 [History] Na Phos,M-B/Na Phos,Di-Ba [Fleet Adult] 133 ml RECTAL DAILY PRN 12/11/20 [History] Nystatin 100,000 Unit/ml Susp [Mycostatin Oral Susp] 500,000 units PO QID 12/11/20 [History] OLANZapine [ZyPREXA] 5 mg PO HS 12/11/20 [History] Oxybutynin Chloride [Ditropan] 5 mg PO BID@0800,1700 12/11/20 [History] Pantoprazole Sodium [Protonix] 40 mg PO DAILY@0800 12/11/20 [History] Polyethylene Glycol 3350 [Miralax] 17 gm PO BID 12/11/20 [History] Potassium Chloride [Klor-Con 10] 20 meq PO BID@0800,1700 12/11/20 [History] bisacodyL [Dulcolax] 10 mg RECTAL DAILY PRN 12/11/20 [History] dexAMETHasone See Taper PO BID@0800,1700 12/11/20 [History] metFORMIN HCL [Glucophage] 1,000 mg PO BID@0800,1700 12/11/20 [History] ondansetron HCL [Zofran] 8 mg PO Q8H PRN 12/11/20 [History] tiZANidine [Zanaflex] 2 mg PO TID PRN 12/11/20 [History] Follow up Appointment(s)/Referral(s): Donald Tran MD [Primary Care Provider] - 1-2 days
--- NOTE | 2020-12-14 15:52 | PN ---
PROGRESS NOTE DATE OF SERVICE: 12/14/2020 REASON FOR FOLLOWUP: Thoracic surgical spine infection. INTERVAL HISTORY: The patient is currently afebrile. The patient is breathing comfortably. The patient is hemodynamically stable. No worsening pain. No vomiting or diarrhea. PHYSICAL EXAMINATION: Her blood pressure is 103/64, pulse of 119, temperature 98.9. She is 98% on 2 L nasal cannula. GENERAL DESCRIPTION: General description is a middle-aged female lying in bed in no distress. RESPIRATORY SYSTEM: Unlabored breathing. Clear to auscultation anteriorly. HEART: S1, S2. Regular rate and rhythm. ABDOMEN: Soft. No tenderness. LABS: Culture is showing Gram-negative bacilli and Enterococcus. DIAGNOSTIC IMPRESSION AND PLAN: Patient with a thoracic surgical spine infection. Culture with Pseudomonas and Enterococcus. Patient does have a PENICILLIN ALLERGY; covered with Azactam and vancomycin; however, hospice may be better option. This was discussed with the family. Questions and concerns were answered. MMODL / IJN: [id number] /
[2020-12-14 16:00] LABS: Glucose,Whole Blood <20 mg/dL (75-99)
[2020-12-14] MEDS ORDERED: VANCOMYCIN 1,250 MG in SODIUM CHLORIDE 0.9% 250 ML IVPB SCH ×2 (16:00→18:00)
[2020-12-14 16:05] LABS: Glucose,Whole Blood >600 mg/dL (75-99)
[2020-12-14 16:07] LABS: Glucose,Whole Blood 310 mg/dL (75-99)
[2020-12-14 20:37] LABS: Glucose,Whole Blood 149 mg/dL (75-99)
[2020-12-14] MEDS: OLANZapine 5 MG TAB PO SCH (21:07)
[2020-12-14] MEDS: SCOPOLAMINE 1.5MG/72HR PATCH TRANSDERM SCH (21:08)
[2020-12-14 22:58] LABS: Glucose,Whole Blood 118 mg/dL (75-99)
[2020-12-15 03:00] LABS: Glucose,Whole Blood 142 mg/dL (75-99)
[2020-12-15 06:10] LABS: Glucose,Whole Blood 163 mg/dL (75-99)
[2020-12-15] MEDS: ONDANSETRON 4 MG TAB PO SCH ×2 (08:25→15:23)
[2020-12-15] MEDS: MORPHINE SULFATE ER 60 MG TABLET PO SCH ×2 (08:25→22:00)
[2020-12-15] MEDS: PANTOPRAZOLE 40 MG TABLET PO SCH (08:26)
[2020-12-15] MEDS: OXYBUTYNIN CHLORIDE 5 MG TAB PO SCH ×2 (08:26→22:01)
[2020-12-15] MEDS: GABAPENTIN 100 MG CAP PO SCH ×3 (08:26→22:01)
[2020-12-15] MEDS: HYDROmorphone 2 MG TAB PO PRN (11:23)
[2020-12-15 11:53] LABS: Glucose,Whole Blood 171 mg/dL (75-99)
--- NOTE | 2020-12-15 12:42 | P.PN ---
Subjective Progress Note Date: 12/15/20 This is a 45-year-old pleasant lady, resides at [facility] under the care of Dr. Tran, known history of breast cancer with metastatic, diagnosed in 2014, upon diagnosis sure that metastatic lesions to the bone. She did not require mastectomy at that time, however she is on chemotherapy. Oncology would be at [facility] She had decubitus ulcer diagnosed 3 weeks ago, after decompression surgery involving lumbar spine, done at [facility] in [place], 3 weeks ago. She went to [facility], for which she is therefore rehabilitation. Patient requires a Marko lift, cannot ambulate and cannot move the leg spontaneously. She was noted to have fever this morning, and when she woke up she was disoriented, she was subsequently transferred to [facility]. She has a decubitus ulcer with foul-smelling large ulceration, this is being treated with 3+, no oral antibiotic, it's worse for the past 2 weeks, now with us foul-smelling odor, measuring 5 cm x 2 cm stage III. In the emergency room she was given information of the culture that was done December 08, growing pseudomonas aeruginosa, and Enterococcus faecalis, she was given cepefijme, pseudomonas is pansensitive, enterococcus is resistant to erythromycin, we'll going to start on levofloxacin IV and IV flagyn empiric, no drug ALLERGIES noted with this antibiotic. Patient has penicillin ALLERGY, with difficulty breathing and throat swelling consult with Dr. Harris, Dr. Menjivar for debridement of the sacral wound, and Dr. Hernandez for possible discitis, osteomyelitis. Patient has fever, delirium, with encephalopathy like picture, however this is transient, we've discussed this with emergency room physician, before her acceptance here, that I would prefer her to be sent to a tertiary facility that has done her spine decompression, as there is drainage from the wound in the surgical spine area however the family declined this option, as it is too far in [place]. Also at her primary care physician Deepti Bhandari, Dr. Tran requested that the patient stay locally, as this is uncomfortable for her, patient did not want any palliative treatments yet, however she is DO NOT RESUSCITATE, no CPR no ventilation She is taking morphine 60 mg twice a day, along with Dilaudid 2 mg every 4 hours, [facility]. She is on Lantus for diabetes NovoLog premix,, gabapentin, Zyprexa, she is on piqray and Arimidex for metastatic breast cancer dexamethasone 2-4 mg as directed 12/12 patient is done for excisional debridement by Dr. Roberson today, CT thoracic spine currently pending, Recommendations to follow from Dr. Menjivar local wound care, might need wound VAC,, as well as orthopedic spine imaging completed.. 20: Patient is doing okay with pain management, she had excisional debridement yesterday, has no nausea vomiting, family is at bedside, they have requested that she be discharged to hospice home, secondary to expenses incurred at [facility]. Patient has no neuropathy pain this time, she still appears for pain management, no new recommendations from orthopedic spine, however she has a complicated decubitus ulcer, suspicious of Perfecto also. She has an external Cadena catheter, with for which we'll going to replace this with a chronic indwelling Cadena catheter, upon discharge secondary to a large decubitus sacral ulcer and mattress in place, and frequent turning by nursing staff Patient assessed at bedside. Mother and sister at bedside. Had detailed discussion with the family about hospice care since patient has a poor prognosis. Family is agreeable to hospice home and switch patient from palliative care to hospice. Family also updated upon discontinuation of antibiotics which they are agreeable to. Orthopedic surgeon and Gen. surgery do not recommend surgical intervention for dehiscence of her lumbar spine wound. Patient underwent debridement of the sacral decubitus ulcer but she is not a candidate for any flap coverage. Hospice care consult placed. 12/15 patient assessed at bedside. Is awake answer questions appropriately. She is comfortable on current medical medication regimen. Patient to continue on comfort care until hospice sees the patient. Continue scopolamine patch for increased secretion. Continue pain control with morphine and Dilaudid. Review of Systems Constitutional: Denies chills, Denies fever, endorses lethargy, Denies weight loss Eyes: denies decreased vision, denies diplopia, denies discharge, denies pain Ears: deny: decreased hearing Ears, nose, mouth and throat: Denies dental pain, Denies headache, Denies nasal discharge, Denies nose pain Cardiovascular: Denies chest pain, Denies decreased exercise tolerance, Denies edema, Denies high blood pressure, Denies irregular heart beat, Denies palpitations, Denies paroxysmal nocturnal dyspnea, Denies rapid heart beat, Denies shortness of breath Respiratory: Denies congestion, Denies cough, Denies cough with sputum, Denies dyspnea, Denies home oxygen, Denies wheezing Gastrointestinal: Denies abdominal pain, Denies change in bowel habits, Denies coffee ground emesis, Denies early satiety, Denies excessive gas, Denies heartburn, Denies hematemesis, Denies hematochezia, Denies loss of appetite, Denies nausea, Denies vomiting Genitourinary: Denies dysuria, Denies flank pain, Denies kidney stones, Denies menorrhagia, Denies urgency, Denies urinary frequency Musculoskeletal: Endorses limitation of motion, Denies morning stiffness, Denies muscle cramps Integumentary: Denies rash, Denies wounds, Denies brittle nails, Denies change in hair/nails, Denies darkening of skin Neurological: Endorses balance difficulties, Denies change in speech, Denies double vision, Denies gait dysfunction, Denies loss of vision, Denies motor disturbance, Denies numbness, Denies paralysis, Denies paresthesias, Denies seizures Psychiatric: Denies anxiety, Denies depression Endocrine: Denies excessive sweating, Denies excessive thirst, Denies high blood sugars, Denies palpitations Hematologic/Lymphatic: Denies easy bruising, Denies lymphadenopathy - Constitutional General appearance: cooperative, no acute distress, obese 80 looking - EENT Eyes: anicteric sclerae, ENT: hearing grossly normal - Neck Neck: no lymphadenopathy, normal ROM, no other, no rigidity, no stridor, no thyromegaly - Respiratory Respiratory: bilateral: CTA, negative: diminished, dullness, rales, rhonchi - Cardiovascular Rhythm: regular Heart sounds: normal: S1, S2 Abnormal Heart Sounds: no systolic murmur, no diastolic murmur, no rub, no S3 Gallop, no S4 Gallop, no click, no other - Gastrointestinal General gastrointestinal: normal bowel sounds, soft - Integumentary Integumentary: Warm normal back and sacrum a cold with dressing no oozing or drainage noted. - Neurologic Neurologic: No sensory deficit - Musculoskeletal Musculoskeletal: Decrease in bilaterally lower extremity - Psychiatric Psychiatric: A&O x's 3, appropriate affect Assessment and plan 1. Encephalopathy, secondary to sepsis, primary source could be the pseudomonas and enterococcus as noted from sacral decub foul-smelling lesion, however there is also an noticeable drainage from the spinal wound for which this going to be looking to by Dr. Hernandez, and Dr. Otto Harris which is sensitive to the melanie robes isolated, and IV Flagyl to be started, patient has penicillin ALLERGY, cefepime given 1 dose in the ER, discussed with Dr. Harris, was on vancomycin and aztreonam, switch to hospice care 2. large sacral pressure ulcer suspect perfecto ulcer, insert cadena cath for now instead of external cath, awaiot cultures,excisional debridement performed, 11/1919 Dr. Menjivar stopped comfort care 3. Breast cancer with metastases to the brain, and spinal column, patient is on piqray and dexamethasone, and Arimidex consult with Dr. Shepard underlying brain edema suspected well on dexamethasone, discontinued Arimidex and Piqray, on comfort care 3. Thoracolumbar spine fusion and Spinal decompression on 11/05, secondary to pathological fracture suspected, no notes for review, consult with Dr. Hernandez, ere is support for drainage in the surgical wound from this area not a surgical candidate for any flap surgery. Appropriate follow-up hospice care 4. Chronic pain, secondary to malignancy, skeletal metastases noted, on morphine 60 mg twice a day, and oral Dilaudid, 2 mg every 4 hours, morphine ER would be continued, and IV Dilaudid on a when necessary basis. 4 mg every 6. Morphine IV every 2 he and Ativan added for comfort care 5. Diabetes mellitus type 2, on metformin, and comfort measures check 6. Hypothyroid on comfort measures 7. Chronic fatigue, on dexamethasone, for brain metastases possibly swelling, also on methylphenidate, 8. DVT prophylaxis on hospice comfort care 9. GI prophylaxis comfort care CODE STATUS, DO NOT RESUSCITATE, hospice consult placed plan for hospice home Patient Condition at Discharge: Serious Objective - Vital Signs Vital signs: Vital Signs Temp 99.2 F 12/15/20 11:20 Pulse 123 H 12/15/20 11:20 Resp 16 12/15/20 11:20 BP 99/61 12/15/20 11:20 Pulse Ox 96 12/15/20 11:20 Intake & Output 12/14/20 12/15/20 12/15/20 18:59 06:59 18:59 Intake Total 478 60 Output Total 500 700 1 Balance -700 59 Weight 89.5 kg Intake: Oral 478 60 Output: Urine 500 700 Stool 1 Other: Voiding Method Indwelling Catheter Indwelling Catheter Indwelling Catheter # Voids 350 - Labs CBC & Chem 7: 12/12/20 09:59 12/13/20 07:52 Labs: Abnormal Lab Results - Last 24 Hours (Table) 12/14/20 12/14/20 12/14/20 Range/Units 15:57 16:01 16:05 POC Glucose (mg/dL) <20 L >600 H 310 H (75-99) mg/dL 12/14/20 12/14/20 12/15/20 Range/Units 20:25 22:56 02:59 POC Glucose (mg/dL) 149 H 118 H 142 H (75-99) mg/dL 12/15/20 12/15/20 Range/Units 05:58 11:52 POC Glucose (mg/dL) 163 H 171 H (75-99) mg/dL Microbiology - Last 24 Hours (Table) 12/11/20 08:15 Blood Culture - Preliminary Blood No Growth after 96 hours 12/11/20 08:00 Blood Culture - Preliminary Blood No Growth after 96 hours 12/12/20 14:50 Gram Stain - Final Buttock Wound Culture - Final Escherichia coli Klebsiella pneumoniae Enterococcus faecalis 12/12/20 14:50 Anaerobic Culture - Preliminary Buttock 12/12/20 14:50 Anaerobic Culture - Preliminary Buttock
[2020-12-15 16:16] LABS: Glucose,Whole Blood 293 mg/dL (75-99)
--- NOTE | 2020-12-15 17:16 | PN ---
PROGRESS NOTE DATE OF SERVICE: 12/15/2020 REASON FOR FOLLOWUP: Upper back surgical site infection. INTERVAL HISTORY: The patient is afebrile. The patient is feeling better, breathing comfortably. Overall pain and discomfort to the upper back has improved. No chest pain, shortness of breath or cough. No abdominal pain or diarrhea. PHYSICAL EXAMINATION: Blood pressure 99/61, pulse of 123, temperature 99.2. She is 96% on 2 L nasal cannula. GENERAL DESCRIPTION: General description is a middle-aged female lying in bed in no distress. RESPIRATORY SYSTEM: Unlabored breathing. Clear to auscultation anteriorly. HEART: S1, S2. Regular rate and rhythm. ABDOMEN: Soft. No tenderness. LABS: No new labs have been obtained today. DIAGNOSTIC IMPRESSION AND PLAN: Patient with a surgical site infection. Culture with pseudomonas and enterococcus in this patient with a PENICILLIN ALLERGY. Covered with Azactam and vancomycin. Possible plan for hospice may be appropriate. Antibiotic would be discontinued at that time. Continue supportive care. MMODL / IJN: [id number] /
[2020-12-15 19:59] LABS: Glucose,Whole Blood 329 mg/dL (75-99)
[2020-12-15] MEDS: OLANZapine 5 MG TAB PO SCH (22:00)
[2020-12-15] MEDS: ACETAMINOPHEN TAB 325 MG TAB PO PRN (22:00)
[2020-12-16] MEDS: ONDANSETRON 4 MG TAB PO SCH ×3 (00:20→16:40)
[2020-12-16] MEDS: HYDROmorphone 2 MG TAB PO PRN ×2 (04:45→11:21)
[2020-12-16 05:53] LABS: Glucose,Whole Blood 401 mg/dL (75-99)
[2020-12-16] MEDS: PANTOPRAZOLE 40 MG TABLET PO SCH (09:21)
[2020-12-16] MEDS: GABAPENTIN 100 MG CAP PO SCH ×3 (09:21→21:25)
[2020-12-16] MEDS: OXYBUTYNIN CHLORIDE 5 MG TAB PO SCH ×2 (09:21→21:25)
[2020-12-16] MEDS: MORPHINE SULFATE ER 60 MG TABLET PO SCH ×2 (09:21→21:24)
[2020-12-16] MEDS: NYSTATIN 100,000 UNIT/ML SUSP 500,000 UNIT/5 ML CUP PO SCH ×4 (09:22→22:32)
[2020-12-16 11:24] LABS: Glucose,Whole Blood 491 mg/dL (75-99)
--- NOTE | 2020-12-16 13:14 | PN ---
PROGRESS NOTE DATE OF SERVICE: 12/16/2020 REASON FOR FOLLOWUP: Thoracic surgical spine infection. INTERVAL HISTORY: The patient did have a low-grade fever around midnight of 100 degrees Fahrenheit. The patient has been afebrile since then. The patient is feeling better, breathing comfortably. The patient denies having any chest pain or shortness of breath or cough. No nausea, no vomiting, no abdominal pain or pain to the thoracic spine area. PHYSICAL EXAMINATION: Blood pressure is 122/70 with a pulse of 120, temperature 98.2. She is 99% on 2 L nasal cannula. GENERAL DESCRIPTION: General description is a middle-aged female lying in bed in no distress. RESPIRATORY SYSTEM: Unlabored breathing. Clear to auscultation anteriorly. HEART: S1, S2. Regular rate and rhythm. ABDOMEN: Soft. No tenderness. LABS: No new labs have been obtained today. DIAGNOSTIC IMPRESSION AND PLAN: Patient with thoracic spine surgical site infection with multiple pathogens and PENICILLIN ALLERGY. However, in view of the metastatic breast cancer, hospice is an option. Antibiotic can be safely discontinued. Multiple family members were at the bedside. Their questions were answered. MMODL / IJN: [id number] /
--- NOTE | 2020-12-16 14:32 | P.PN ---
Subjective Progress Note Date: 12/16/20 This is a 45-year-old pleasant lady, resides at [facility] under the care of Dr. Tran, known history of breast cancer with metastatic, diagnosed in 2014, upon diagnosis sure that metastatic lesions to the bone. She did not require mastectomy at that time, however she is on chemotherapy. Oncology would be at [facility] She had decubitus ulcer diagnosed 3 weeks ago, after decompression surgery involving lumbar spine, done at [facility] in [place], 3 weeks ago. She went to [facility], for which she is therefore rehabilitation. Patient requires a Marko lift, cannot ambulate and cannot move the leg spontaneously. She was noted to have fever this morning, and when she woke up she was disoriented, she was subsequently transferred to [facility]. She has a decubitus ulcer with foul-smelling large ulceration, this is being treated with 3+, no oral antibiotic, it's worse for the past 2 weeks, now with us foul-smelling odor, measuring 5 cm x 2 cm stage III. In the emergency room she was given information of the culture that was done December 08, growing pseudomonas aeruginosa, and Enterococcus faecalis, she was given cepefijme, pseudomonas is pansensitive, enterococcus is resistant to erythromycin, we'll going to start on levofloxacin IV and IV flagyn empiric, no drug ALLERGIES noted with this antibiotic. Patient has penicillin ALLERGY, with difficulty breathing and throat swelling consult with Dr. Harris, Dr. Menjivar for debridement of the sacral wound, and Dr. Hernandez for possible discitis, osteomyelitis. Patient has fever, delirium, with encephalopathy like picture, however this is transient, we've discussed this with emergency room physician, before her acceptance here, that I would prefer her to be sent to a tertiary facility that has done her spine decompression, as there is drainage from the wound in the surgical spine area however the family declined this option, as it is too far in [place]. Also at her primary care physician Deepti Bhandari, Dr. Tran requested that the patient stay locally, as this is uncomfortable for her, patient did not want any palliative treatments yet, however she is DO NOT RESUSCITATE, no CPR no ventilation She is taking morphine 60 mg twice a day, along with Dilaudid 2 mg every 4 hours, at the long-term prior to admission. She is on Lantus for diabetes NovoLog premix,, gabapentin, Zyprexa, she is on piqray and Arimidex for metastatic breast cancer dexamethasone 2-4 mg as directed 12/12 patient is done for excisional debridement by Dr. Roberson today, CT thoracic spine currently pending, Recommendations to follow from Dr. Menjivar local wound care, might need wound VAC,, as well as orthopedic spine imaging completed.. 20: Patient is doing okay with pain management, she had excisional debridement yesterday, has no nausea vomiting, family is at bedside, they have requested that she be discharged to hospice home, secondary to expenses incurred at [facility]. Patient has no neuropathy pain this time, she still appears for pain management, no new recommendations from orthopedic spine, however she has a complicated decubitus ulcer, suspicious of Perfecto also. She has an external Cadena catheter, with for which we'll going to replace this with a chronic indwelling Cadena catheter, upon discharge secondary to a large decubitus sacral ulcer and mattress in place, and frequent turning by nursing staff Patient assessed at bedside. Mother and sister at bedside. Had detailed discussion with the family about hospice care since patient has a poor prognosis. Family is agreeable to hospice home and switch patient from palliative care to hospice. Family also updated upon discontinuation of antibiotics which they are agreeable to. Orthopedic surgeon and Gen. surgery do not recommend surgical intervention for dehiscence of her lumbar spine wound. Patient underwent debridement of the sacral decubitus ulcer but she is not a candidate for any flap coverage. Hospice care consult placed. 12/15 patient assessed at bedside. Is awake answer questions appropriately. She is comfortable on current medical medication regimen. Patient to continue on comfort care until hospice sees the patient. Continue scopolamine patch for increased secretion. Continue pain control with morphine and Dilaudid. patient assessed at bedside. Patient is comfortable on the current medication. Denies any pain in the back or in the chest and abdomen. Patient denies any nausea vomiting or diarrhea. She does have oral ulcer for which nystatin was prescribed yesterday. Awaiting insurance authorization for hospice home. Review of Systems Constitutional: Denies chills, Denies fever, endorses lethargy, Denies weight loss Eyes: denies decreased vision, denies diplopia, denies discharge, denies pain Ears: deny: decreased hearing Ears, nose, mouth and throat: Denies dental pain, Denies headache, Denies nasal discharge, Denies nose pain Cardiovascular: Denies chest pain, Denies decreased exercise tolerance, Denies edema, Denies high blood pressure, Denies irregular heart beat, Denies palpitations, Denies paroxysmal nocturnal dyspnea, Denies rapid heart beat, Denies shortness of breath Respiratory: Denies congestion, Denies cough, Denies cough with sputum, Denies dyspnea, Denies home oxygen, Denies wheezing Gastrointestinal: Denies abdominal pain, Denies change in bowel habits, Denies coffee ground emesis, Denies early satiety, Denies excessive gas, Denies heartburn, Denies hematemesis, Denies hematochezia, Denies loss of appetite, Denies nausea, Denies vomiting Genitourinary: Denies dysuria, Denies flank pain, Denies kidney stones, Denies menorrhagia, Denies urgency, Denies urinary frequency Musculoskeletal: Endorses limitation of motion and improvement in back pain, Denies morning stiffness, Denies muscle cramps Integumentary: Denies rash, Denies wounds, Denies brittle nails, Denies change in hair/nails, Denies darkening of skin Neurological: Denies change in speech, Denies double vision, Denies gait dysfunction, Denies loss of vision, Denies motor disturbance, Denies numbness, Denies paralysis, Denies paresthesias, Denies seizures Psychiatric: Denies anxiety, Denies depression Endocrine: Denies excessive sweating, Denies excessive thirst, Denies high blood sugars, Denies palpitations Hematologic/Lymphatic: Denies easy bruising, Denies lymphadenopathy - Constitutional General appearance: cooperative, no acute distress, obese 80 looking - EENT Eyes: anicteric sclerae, ENT: hearing grossly normal - Neck Neck: no lymphadenopathy, normal ROM, no other, no rigidity, no stridor, no thyromegaly - Respiratory Respiratory: bilateral: CTA, negative: diminished, dullness, rales, rhonchi - Cardiovascular Rhythm: regular Heart sounds: normal: S1, S2 Abnormal Heart Sounds: no systolic murmur, no diastolic murmur, no rub, no S3 Gallop, no S4 Gallop, no click, no other - Gastrointestinal General gastrointestinal: normal bowel sounds, soft non tender - Integumentary Integumentary: Warm normal back and sacrum a cold with dressing no oozing or drainage noted. - Neurologic Neurologic: No sensory deficit - Musculoskeletal Musculoskeletal: Decrease in bilaterally lower extremity - Psychiatric Psychiatric: A&O x's 3, appropriate affect Assessment and plan 1. Encephalopathy, secondary to sepsis, primary source could be the pseudomonas and enterococcus as noted from sacral decub foul-smelling lesion, however there is also an noticeable drainage from the spinal wound for which this going to be looking to by Dr. Hernandez, and Dr. Otto Harris which is sensitive to the microbes isolated, and IV Flagyl to be started, patient has penicillin ALLERGY, cefepime given 1 dose in the ER, discussed with Dr. Harris, was on vancomycin and aztreonam, switch to hospice care continue supportive care 2. large sacral pressure ulcer suspect perfecto ulcer, insert cadena cath for now instead of external cath, awaiot cultures,excisional debridement performed, 11/1919 Dr. Menjivar . comfort care 3. Breast cancer with metastases to the brain, and spinal column, patient is on piqray and dexamethasone, and Arimidex consult with Dr. Shepard underlying brain tori ma suspected well on dexamethasone, discontinued Arimidex and Piqray, on comfort care 3. Thoracolumbar spine fusion and Spinal decompression on 11/05, secondary to pathological fracture suspected, no notes for review, consult with Dr. Hernandez, there is support for drainage in the surgical wound from this area not a surgical candidate for any flap surgery. Appropriate follow-up hospice care 4. Chronic pain, secondary to malignancy, skeletal metastases noted, on morphine 60 mg twice a day, and oral Dilaudid, 2 mg every 4 hours, morphine ER would be continued, and IV Dilaudid on a when necessary basis. 4 mg every 6. Morphine IV every 2 he and Ativan added for comfort care 5. Diabetes mellitus type 2, on metformin, and comfort measures check 6. Hypothyroid on comfort measures 7. Chronic fatigue, on dexamethasone, for brain metastases possibly swelling, also on methylphenidate, 8. DVT prophylaxis on hospice comfort care 9. GI prophylaxis comfort care CODE STATUS, DO NOT RESUSCITATE, hospice consult placed plan for hospice home Patient Condition at Discharge: Serious Objective - Vital Signs Vital signs: Vital Signs Temp 98.2 F 12/16/20 08:53 Pulse 120 H 12/16/20 11:18 Resp 16 12/16/20 11:18 BP 122/70 12/16/20 11:18 Pulse Ox 99 12/16/20 11:18 Intake & Output 12/15/20 12/16/20 12/16/20 18:59 06:59 18:59 Intake Total 940 480 Output Total 1 1400 Balance 939 -1400 480 Weight 86 kg Intake: Oral 940 480 Output: Urine 1400 Stool 1 Other: Voiding Method Indwelling Catheter Indwelling Catheter Indwelling Catheter # Bowel Movements 1 - Labs CBC & Chem 7: 12/12/20 09:59 12/13/20 07:52 Labs: Abnormal Lab Results - Last 24 Hours (Table) 12/15/20 12/15/20 12/16/20 Range/Units 16:14 19:57 05:52 POC Glucose (mg/dL) 293 H 329 H 401 H (75-99) mg/dL 12/16/20 Range/Units 11:22 POC Glucose (mg/dL) 491 H (75-99) mg/dL Microbiology - Last 24 Hours (Table) 12/11/20 08:15 Blood Culture - Preliminary Blood No Growth after 120 hours 12/11/20 08:00 Blood Culture - Preliminary Blood No Growth after 120 hours 12/12/20 14:50 Gram Stain - Final Buttock Wound Culture - Final Escherichia coli Klebsiella pneumoniae Enterococcus faecalis
[2020-12-16 16:56] LABS: Glucose,Whole Blood 396 mg/dL (75-99)
[2020-12-16 20:12] LABS: Glucose,Whole Blood 421 mg/dL (75-99)
[2020-12-16] MEDS: ACETAMINOPHEN TAB 325 MG TAB PO PRN (21:24)
[2020-12-16] MEDS: OLANZapine 5 MG TAB PO SCH (21:25)
[2020-12-17] MEDS: ONDANSETRON 4 MG TAB PO SCH ×4 (00:04→23:01)
[2020-12-17] MEDS: HYDROmorphone 2 MG TAB PO PRN ×2 (05:25→23:59)
[2020-12-17 06:08] LABS: Glucose,Whole Blood 446 mg/dL (75-99)
[2020-12-17] MEDS: ACETAMINOPHEN TAB 325 MG TAB PO PRN ×2 (08:28→20:28)
[2020-12-17] MEDS: GABAPENTIN 100 MG CAP PO SCH ×3 (08:28→21:19)
[2020-12-17] MEDS: MORPHINE SULFATE ER 60 MG TABLET PO SCH ×2 (08:29→20:27)
[2020-12-17] MEDS: NYSTATIN 100,000 UNIT/ML SUSP 500,000 UNIT/5 ML CUP PO SCH ×4 (08:30→21:19)
[2020-12-17] MEDS: OXYBUTYNIN CHLORIDE 5 MG TAB PO SCH ×2 (08:30→20:28)
[2020-12-17] MEDS: PANTOPRAZOLE 40 MG TABLET PO SCH (08:30)
[2020-12-17 12:09] LABS: Glucose,Whole Blood 386 mg/dL (75-99)
[2020-12-17 13:42] VITALS: RESP 18
--- NOTE | 2020-12-17 14:39 | P.DS ---
Providers Date of admission: 12/11/20 12:48 Attending physician: Shruthi Doty Consults: 12/11/20 12:35 Consult Physician Routine Consulting Provider: Constantine Harris Consult Reason/Comments: decub ulcer osteo Do you want consulting provider notified?: Yes 12/11/20 12:38 Consult Physician Routine Consulting Provider: Judith Menjivar Consult Reason/Comments: decub debridement Do you want consulting provider notified?: Yes 12/11/20 15:33 Consult Physician Routine Consulting Provider: Matthew Hernandez Consult Reason/Comments: osteomyelitis poss with purulent discharge form spine surgery Do you want consulting provider notified?: Yes 12/11/20 15:36 Consult Physician Routine Consulting Provider: Antonio Shepard Consult Reason/Comments: breast ca brain mets Do you want consulting provider notified?: Yes Primary care physician: [facility] Course: This is a 45-year-old pleasant lady, resides at [facility] under the care of Dr. Tran, known history of breast cancer with metastatic, diagnosed in 2014, upon diagnosis sure that metastatic lesions to the bone. She did not require mastectomy at that time, however she is on chemotherapy. Oncology would be at [facility] She had decubitus ulcer diagnosed 3 weeks ago, after decompression surgery involving lumbar spine, done at [facility] in [place], 3 weeks ago. She went to [facility], for which she is therefore rehabilitation. Patient requires a Marko lift, cannot ambulate and cannot move the leg spontaneously. She was noted to have fever this morning, and when she woke up she was disoriented, she was subsequently transferred to [facility]. She has a decubitus ulcer with foul-smelling large ulceration, this is being treated with 3+, no oral antibiotic, it's worse for the past 2 weeks, now with us foul-smelling odor, measuring 5 cm x 2 cm stage III. In the emergency room she was given information of the culture that was done December 08, growing pseudomonas aeruginosa, and Enterococcus faecalis, she was given cepefijme, pseudomonas is pansensitive, enterococcus is resistant to erythromycin, we'll going to start on levofloxacin IV and IV flagyn empiric, no drug ALLERGIES noted with this antibiotic. Patient has penicillin ALLERGY, with difficulty breathing and throat swelling consult with Dr. Harris, Dr. Menjivar for debridement of the sacral wound, and Dr. Hernandez for possible discitis, osteomye litis. Patient has fever, delirium, with encephalopathy like picture, however this is transient, we've discussed this with emergency room physician, before her acceptance here, that I would prefer her to be sent to a tertiary facility that has done her spine decompression, as there is drainage from the wound in the surgical spine area however the family declined this option, as it is too far in [place]. Also at her primary care physician Deepti Bhandari, Dr. Tran requested that the patient stay locally, as this is uncomfortable for her, patient did not want any palliative treatments yet, however she is DO NOT RESUSCITATE, no CPR no ventilation She is taking morphine 60 mg twice a day, along with Dilaudid 2 mg every 4 hours, at the [facility] prior to admission. She is on Lantus for diabetes NovoLog premix,, gabapentin, Zyprexa, she is on piqray and Arimidex for metastatic breast cancer dexamethasone 2-4 mg as directed 12/12 patient is done for excisional debridement by Dr. Roberson today, CT thoracic spine currently pending, Recommendations to follow from Dr. Menjivar local wound care, might need wound VAC,, as well as orthopedic spine imaging completed.. 8 20: Patient is doing okay with pain management, she had excisional debridement yesterday, has no nausea vomiting, family is at bedside, they have requested that she be discharged to hospice home, secondary to expenses incurred at [facility]. Patient has no neuropathy pain this time, she still appears for pain management, no new recommendations from orthopedic spine, however she has a complicated decubitus ulcer, suspicious of Sanjay also. She has an external Zhang catheter, with for which we'll going to replace this with a chronic indwelling Zhang catheter, upon discharge secondary to a large decubitus sacral ulcer and mattress in place, and frequent turning by nursing staff Patient assessed at bedside. Mother and sister at bedside. Had detailed discussion with the family about hospice care since patient has a poor prognosis. Family is agreeable to hospice home and switch patient from palliative care to hospice. Family also updated upon discontinuation of antibiotics which they are agreeable to. Orthopedic surgeon and Gen. surgery do not recommend surgical intervention for dehiscence of her lumbar spine wound. Patient underwent debridement of the sacral decubitus ulcer but she is not a c andidate for any flap coverage. Hospice care consult placed. 12/15 patient assessed at bedside. Is awake answer questions appropriately. She is comfortable on current medical medication regimen. Patient to continue on comfort care until hospice sees the patient. Continue scopolamine patch for increased secretion. Continue pain control with morphine and Dilaudid. patient assessed at bedside. Patient is comfortable on the current medication. Denies any pain in the back or in the chest and abdomen. Patient denies any nausea vomiting or diarrhea. She does have oral ulcer for which nystatin was prescribed yesterday. Awaiting insurance authorization for hospice home. 12/17 patient assessed at bedside. His current currently comfortable on current medication. Would recommend stopping on the IV medications and poking patient's for blood sugar check to keep patient comfortable . Patient is currently comfortable on Dilaudid and morphine for pain medication control. Patient will be discharged to [facility] hospice will follow the patient. Assessment and plan 1. Encephalopathy, secondary to sepsis, primary source could be the pseudomonas and enterococcus as noted from sacral decub foul-smelling lesion, however there is also an noticeable drainage from the spinal wound 2. large sacral pressure ulcer 3. Breast cancer with metastases to the brain, and spinal column, failed treatment 4. Thoracolumbar spine fusion and Spinal decompression 5. Chronic pain, secondary to malignancy, skeletal metastases noted 6. Diabetes mellitus type 2 6. Hypothyroid 7. Chronic fatigue [facility] Patient Condition at Discharge: Serious Plan - Discharge Summary Discharge Rx Participant: No New Discharge Prescriptions: New Nystatin 100,000 Unit/ml Susp [Mycostatin Oral Susp] 500,000 unit PO QID #140 ml Continue ALPRAZolam [Xanax] 0.25 mg PO DAILY PRN PRN Reason: Anxiety ondansetron HCL [Zofran] 8 mg PO Q8H PRN PRN Reason: Nausea Oxybutynin Chloride [Ditropan] 5 mg PO BID@0800,1700 Nystatin 100,000 Unit/ml Susp [Mycostatin Oral Susp] 500,000 units PO QID Morphine Sulfate ER [Ms Contin] 60 mg PO Q12HR HYDROmorphone [Dilaudid] 2 - 4 mg PO Q6H PRN PRN Reason: Pain Gabapentin [Neurontin] 100 mg PO TID@0600,1400,2200 bisacodyL [Dulcolax] 10 mg RECTAL DAILY PRN PRN Reason: Constipation Bisacodyl 10 mg PO DAILY PRN PRN Reason: Constipation Acetaminophen Tab [Tylenol] 650 mg PO QID PRN PRN Reason: Pain Or Fever > 100.5 tiZANidine [Zanaflex] 2 mg PO TID PRN PRN Reason: Muscle Spasm Collagenase [Santyl] 1 applic TOPICAL DAILY OLANZapine [ZyPREXA] 5 mg PO HS Polyethylene Glycol 3350 [Miralax] 17 gm PO BID Magnesium Hydroxide [Milk of Magnesia Concentrate] 7,200 mg PO DAILY PRN PRN Reason: Constipation Na Phos,M-B/Na Phos,Di-Ba [Fleet Adult] 133 ml RECTAL DAILY PRN PRN Reason: Constipation Glucerna Shake 120 ml PO TID@0800,1200,1700 Discontinued Alpelisib [Piqray] 2 tab PO DAILY@1800 INSULIN ASPART (NovoLOG) [NovoLOG (formulary)] 20 unit SQ AC-TID Levothyroxine Sodium [Synthroid] 200 mcg PO DAILY@0600 Anastrozole [Arimidex] 1 mg PO HS dexAMETHasone See Taper PO BID@0800,1700 Potassium Chloride [Klor-Con 10] 20 meq PO BID@0800,1700 Pantoprazole Sodium [Protonix] 40 mg PO DAILY@0800 Methylphenidate HCl [Ritalin] 10 mg PO BID@0800,1700 metFORMIN HCL [Glucophage] 1,000 mg PO BID@0800,1700 Insulin Glargine [Lantus] 50 unit SQ BID@0800,2100 INSULIN ASPART (NovoLOG) [NovoLOG (formulary)] See Protocol SQ AC-TID Enoxaparin [Lovenox] 40 mg SQ DAILY@0800 Discharge Medication List ALPRAZolam [Xanax] 0.25 mg PO DAILY PRN 12/11/20 [History] Acetaminophen Tab [Tylenol] 650 mg PO QID PRN 12/11/20 [History] Bisacodyl 10 mg PO DAILY PRN 12/11/20 [History] Collagenase [Santyl] 1 applic TOPICAL DAILY 12/11/20 [History] Gabapentin [Neurontin] 100 mg PO TID@0600,1400,2200 12/11/20 [History] Glucerna Shake 120 ml PO TID@0800,1200,1700 12/11/20 [History] HYDROmorphone [Dilaudid] 2 - 4 mg PO Q6H PRN 12/11/20 [History] Magnesium Hydroxide [Milk of Magnesia Concentrate] 7,200 mg PO DAILY PRN 12/11/20 [History] Morphine Sulfate ER [Ms Contin] 60 mg PO Q12HR 12/11/20 [History] Na Phos,M-B/Na Phos,Di-Ba [Fleet Adult] 133 ml RECTAL DAILY PRN 12/11/20 [History] Nystatin 100,000 Unit/ml Susp [Mycostatin Oral Susp] 500,000 units PO QID 12/11/20 [History] OLANZapine [ZyPREXA] 5 mg PO HS 12/11/20 [History] Oxybutynin Chloride [Ditropan] 5 mg PO BID@0800,1700 12/11/20 [History] Polyethylene Glycol 3350 [Miralax] 17 gm PO BID 12/11/20 [History] bisacodyL [Dulcolax] 10 mg RECTAL DAILY PRN 12/11/20 [History] ondansetron HCL [Zofran] 8 mg PO Q8H PRN 12/11/20 [History] tiZANidine [Zanaflex] 2 mg PO TID PRN 12/11/20 [History] Nystatin 100,000 Unit/ml Susp [Mycostatin Oral Susp] 500,000 unit PO QID #140 ml 12/16/20 [Rx] Follow up Appointment(s)/Referral(s): Donald Tran MD [Primary Care Provider] - 1-2 days Discharge Disposition: HOME WITH HOSPICE
[2020-12-17 14:59] VITALS: BMI 31.8
[2020-12-17 16:12] LABS: Glucose,Whole Blood 398 mg/dL (75-99)
[2020-12-17 20:19] LABS: Glucose,Whole Blood 489 mg/dL (75-99)
[2020-12-17] MEDS: SCOPOLAMINE 1.5MG/72HR PATCH TRANSDERM SCH (20:27)
[2020-12-17] MEDS: OLANZapine 5 MG TAB PO SCH (20:28)
[2020-12-17 23:35] VITALS: TEMP 98.1
[2020-12-18] MEDS: HYDROmorphone 2 MG TAB PO PRN (06:38)
[2020-12-18] MEDS: OXYBUTYNIN CHLORIDE 5 MG TAB PO SCH (09:56)
[2020-12-18] MEDS: NYSTATIN 100,000 UNIT/ML SUSP 500,000 UNIT/5 ML CUP PO SCH (09:56)
[2020-12-18] MEDS: PANTOPRAZOLE 40 MG TABLET PO SCH (09:57)
[2020-12-18] MEDS: ONDANSETRON 4 MG TAB PO SCH (09:57)
[2020-12-18] MEDS: GABAPENTIN 100 MG CAP PO SCH (09:57)
[2020-12-18] MEDS: MORPHINE SULFATE ER 60 MG TABLET PO SCH (09:57)
[2020-12-18 10:47] VITALS: BP 116/74; PULSE 113
== END 2020-12-18 10:35 | disposition hospice, home (50) | DRG 856 ==
LOC: EC 07:41 → 1SOBS 12:48 → 5NMEDONC 15:31 → 3SCARD 18:05
PROVIDERS: ADMIT Family Medicine; ATTEND Family Medicine
PROC: 0JB70ZZ Excision of Back Subcutaneous Tissue and Fascia, Open Approach (ICD-10-PCS; principal; 2020-12-12 14:30)
DX: T81.41XA Infection following a procedure, superficial incisional surgical site, initial encounter (principal); L89.154 Pressure ulcer of sacral region, stage 4; G93.41 Metabolic encephalopathy; G93.6 Cerebral edema; A41.81 Sepsis due to Enterococcus; A41.52 Sepsis due to Pseudomonas; C79.31 Secondary malignant neoplasm of brain; T81.31XA Disruption of external operation (surgical) wound, not elsewhere classified, initial encounter; M86.9 Osteomyelitis, unspecified; M84.451A Pathological fracture, right femur, initial encounter for fracture; C78.00 Secondary malignant neoplasm of unspecified lung; C79.51 Secondary malignant neoplasm of bone; Z51.5 Encounter for palliative care; E03.9 Hypothyroidism, unspecified; Z66 Do not resuscitate; Z88.0 Allergy status to penicillin; G89.3 Neoplasm related pain (acute) (chronic); K12.1 Other forms of stomatitis; Z98.1 Arthrodesis status; E11.69 Type 2 diabetes mellitus with other specified complication; R09.02 Hypoxemia; Z91.81 History of falling; Z20.822 Contact with and (suspected) exposure to COVID-19; E78.5 Hyperlipidemia, unspecified; I10 Essential (primary) hypertension; R53.82 Chronic fatigue, unspecified; Z79.4 Long term (current) use of insulin; Z79.811 Long term (current) use of aromatase inhibitors; Z79.890 Hormone replacement therapy; Z85.3 Personal history of malignant neoplasm of breast; Z79.899 Other long term (current) drug therapy; R32 Unspecified urinary incontinence; L98.422 Non-pressure chronic ulcer of back with fat layer exposed
CPT/HCPCS: 36415; 70450; 71045; 71046; 72070; 72100; 72128; 80048; 80053; 80202; 82533; 83605; 84484; 84703; 85025; 85610; 85652; 85730; 86140; 87040; 87070; 87075; 87077; 87186; 87205; 87635; 88304; 93005; 94760; 96365; 96375; 99285